=== PATIENT | female | born 1995 | race Caucasian/White ===

== ENCOUNTER 2019-03-14 16:18 | Emergency (ER) | payer OTHER ==
[2019-03-14 17:03] VITALS: BP 130/66; PULSE 88; RESP 20; TEMP 98
--- NOTE | 2019-03-14 17:29 | XR ---
PROCEDURE: XR wrist complete LT - 4V DATE AND TIME: 03/14/2019 5:11 PM CLINICAL INDICATION: PHH; previous fracture increasing pain TECHNIQUE: 4 views were obtained through casting material. COMPARISON: None FINDINGS: There is no fracture or malalignment. The soft tissues are unremarkable. IMPRESSION: NO ACUTE PROCESS.
--- NOTE | 2019-03-14 18:04 | ED ---
Recheck HPI - General Chief Complaint: Recheck/Abnormal Lab/Rx Stated Complaint: F/U on left arm Injury Time Seen by Provider: 03/14/19 16:44 Source: patient Mode of arrival: ambulatory Limitations: no limitations - History of Present Illness Initial Comments: 23-year-old female presenting for right wrist pain since fall and fracture on 03/10. Patient states she broke her wrist swelling Daisy. She states she recently moved to [place]. She attempted to get into aortic surgeon however did not take her insurance. Patient states she continues to have pain. Patient was told that she had a ulnar styloid fracture. Patient states she acquired the fracture by tripping over a curb. And extending her wrist. Patient states she had elbow imaging studies obtained as well as imaging studies of the wrist. Patient states that she continues to have pain in his been taking ibuprofen Tylenol. Remaining review of systems negative. Denies any other areas of injury or complaints denies numbness tingling loss sensation. Patient denies any decreased range motion of the digits. Patient has been removing and reapply the splint - Related Data Allergies Allergy/AdvReac Type Severity Reaction Status Date / Time clarithromycin [From Biaxin] Allergy Dyspnea Verified 03/14/19 16:48 Penicillins Allergy Dyspnea Verified 03/14/19 16:48 Sulfa (Sulfonamide Allergy Dyspnea Verified 03/14/19 16:48 Antibiotics) Review of Systems ROS Statement: Those systems with pertinent positive or pertinent negative responses have been documented in the HPI. ROS Other: All systems not noted in ROS Statement are negative. Past Medical History Past Medical History: Asthma, Diabetes Mellitus, Thyroid Disorder History of Any Multi-Drug Resistant Organisms: None Reported Past Surgical History: Adenoidectomy, Cholecystectomy, Tonsillectomy Past Psychological History: Anxiety, Depression Smoking Status: Never smoker Past Alcohol Use History: None Reported Past Drug Use History: None Reported General Exam - General Exam Comments Initial Comments: General: The patient is awake and alert, in no distress, and does not appear acutely ill. Eye: Pupils are equal, round and reactive to light, extra-ocular movements are intact. No nystagmus. There is normal conjunctiva bilaterally. No signs of icterus. Cardiovascular: There is a regular rate and rhythm. No murmur, rub or gallop is appreciated. Respiratory: Lungs are clear to auscultation, respirations are non-labored, breath sounds are equal. No wheezes, stridor, rales, or rhonchi. Musculoskeletal: Upon inspection of the wrist bilaterally there is no soft tissue swelling ecchymosis. No evidence of gross deformity. Patient is able to range the wrist bilaterally she complains of tenderness with range of motion at the right wrist. Patient is infiltrates the okay fingers crossed thumbs up and oppose the small digit and thumb. No evidence of brisk strep. Compartments are very soft and compressible. Strength intact sensation intact both proximal and distal to the area of complaint. +2 radial pulses are equal bilaterally. Neurological: A&O x 3. CN II-XII intact, There are no obvious motor or sensory deficits. Coordination appears grossly intact. Speech is normal. Skin: Skin is warm and dry and no rashes or lesions are noted. Psychiatric: Cooperative, appropriate mood & affect, normal judgment. Limitations: no limitations Course Vital Signs 03/14/19 16:30 Temperature 98.0 F Pulse Rate 88 Respiratory 20 Rate Blood Pressure 130/66 O2 Sat by Pulse 99 Oximetry Medical Decision Making - Medical Decision Making 23-year-old female presents emergency department for evaluation of wrist pain after injury on March 10. Patient had styloid fracture. Patient has no evidence of acute fracture on imaging studies I do not appreciate the styloid fracture. Patient has no scaphoid tenderness. No neurovascular deficits noted. Patient has strong radial pulses compartments are soft and compressible. Patient is placed in a splint. Orthopedic surgery follow-up. Return parameters were discussed patient is agreeable to this care plan discharge at this time. Disposition Clinical Impression: Left wrist pain, Fracture of ulnar styloid Disposition: HOME SELF-CARE Condition: Good Instructions (If sedation given, give patient instructions): Wrist Fracture in Adults (ED) Additional Instructions: Please use medication as discussed. Please follow-up with orthopedic surgery in the next week- bring paper work with diagnosis from Daisy visit. Please return to emergency room if the symptoms increase or worsen or for any other concerns. Is patient prescribed a controlled substance at d/c from ED?: No Referrals: None,Stated [Primary Care Provider] - 1-2 days Amanuel Feldman MD [STAFF PHYSICIAN] - 1-2 days Time of Disposition: 18:03
--- NOTE | 2019-03-21 02:32 | CDI ---
Dear Jerson May DO: Please do addendum type of the splint placed. Thank you, Nano Dye, Marketing And Communications Officer. If you have any questions, please contact [employer] at [phone]. mtdD
== END 2019-03-14 18:15 | disposition home or self-care (01) ==
LOC: EC 16:18
DX: S52.612A Displaced fracture of left ulna styloid process, initial encounter for closed fracture (principal); Z88.0 Allergy status to penicillin; Z88.1 Allergy status to other antibiotic agents; Z88.2 Allergy status to sulfonamides; W01.0XXA Fall on same level from slipping, tripping and stumbling without subsequent striking against object, initial encounter; Y92.009 Unspecified place in unspecified non-institutional (private) residence as the place of occurrence of the external cause
CPT/HCPCS: 29125; 99283

== ENCOUNTER 2019-04-01 11:32 | Emergency (ER) | payer OTHER ==
[2019-04-01] MEDS ORDERED: SODIUM CHLORIDE 0.9% 1,000 ML IV STA ×2 (12:10)
[2019-04-01] MEDS ORDERED: MORPHINE SULFATE 4 MG/ML SYRINGE IV STA (12:10)
[2019-04-01] MEDS ORDERED: ONDANSETRON 4 MG/2 ML VIAL IVP STA (12:10)
[2019-04-01] MEDS ORDERED: KETOROLAC 30 MG/ML 1 ML VIAL IVP STA (12:10)
[2019-04-01 12:19] VITALS: TEMP 99.7
--- NOTE | 2019-04-01 12:19 | ED ---
Abdominal Pain HPI - General Chief Complaint: Abdominal Pain Stated Complaint: R Abd Pain, Chest Pain Time Seen by Provider: 04/01/19 11:46 Source: patient, RN notes reviewed, old records reviewed Mode of arrival: ambulatory Limitations: no limitations - History of Present Illness Initial Comments: Patient is a 23-year-old female presents to emergency department today with 2 days of right-sided lower abdominal pain, chills, and diarrhea. Patient reports that she is nauseated as well. Patient states that she's had no abdominal surgeries. She does report some dysuria. She denies any back pain.Patient denies any recent fever, chills, shortness of breath, chest pain, back pain, abdominal pain, nausea vomiting, numbness or tingling, dysuria or hematuria, constipation or diarrhea, headaches or visual changes, or any other current symptoms - Related Data Previous Rx's Medication Instructions Recorded Levofloxacin [Levaquin] 750 mg PO DAILY #5 tab 04/01/19 Allergies Allergy/AdvReac Type Severity Reaction Status Date / Time clarithromycin [From Biaxin] Allergy Dyspnea Verified 03/14/19 16:48 Penicillins Allergy Dyspnea Verified 03/14/19 16:48 Sulfa (Sulfonamide Allergy Dyspnea Verified 03/14/19 16:48 Antibiotics) Review of Systems ROS Statement: Those systems with pertinent positive or pertinent negative responses have been documented in the HPI. ROS Other: All systems not noted in ROS Statement are negative. Past Medical History Past Medical History: Asthma, Diabetes Mellitus, Thyroid Disorder History of Any Multi-Drug Resistant Organisms: None Reported Past Surgical History: Adenoidectomy, Cholecystectomy, Tonsillectomy Past Psychological History: Anxiety, Depression Smoking Status: Never smoker Past Alcohol Use History: None Reported Past Drug Use History: None Reported General Exam - General Exam Comments Initial Comments: Pleasant 23-year-old female. She does appear in moderate discomfort. Limitations: no limitations General appearance: alert, in no apparent distress Head exam: Present: atraumatic, normocephalic, normal inspection Eye exam: Present: normal appearance, PERRL, EOMI. Absent: scleral icterus, conjunctival injection, periorbital swelling ENT exam: Present: normal exam, mucous membranes moist Neck exam: Present: normal inspection. Absent: tenderness, meningismus, lymphadenopathy Respiratory exam: Present: normal lung sounds bilaterally. Absent: respiratory distress, wheezes, rales, rhonchi, stridor Cardiovascular Exam: Present: regular rate, normal rhythm, normal heart sounds. Absent: systolic murmur, diastolic murmur, rubs, gallop, clicks GI/Abdominal exam: Present: soft, normal bowel sounds. Absent: distended, tenderness, guarding, rebound, rigid Extremities exam: Present: normal inspection, full ROM, normal capillary refill. Absent: tenderness, pedal edema, joint swelling, calf tenderness Back exam: Present: normal inspection Neurological exam: Present: alert, oriented X3, CN II-XII intact Psychiatric exam: Present: normal affect, normal mood Skin exam: Present: warm, dry, intact, normal color. Absent: rash Course Vital Signs 04/01/19 04/01/19 04/01/19 11:39 12:13 13:21 Temperature 98.5 F 99.7 F H Pulse Rate 104 H 93 82 Respiratory 18 16 18 Rate Blood Pressure 118/75 103/66 104/57 O2 Sat by Pulse 98 100 96 Oximetry Medical Decision Making - Medical Decision Making 23-year-old female presented today for chief complaint of right lower quadrant abdominal pain. Patient has had a low-grade fever, symptoms for the past 2 days. At this time patient's urinalysis is positive for infection. She has no significant right lower quadrant tenderness. Therefore computed tomography scan was ordered. His evidence of sigmoid colitis as well. Patient was given 1 g of Rocephin. I discussed the Patient can be placed on antibiotics to cover for UTI and colitis. Discussed following up with primary care doctor. All questions were answered. - Lab Data Result diagrams: 04/01/19 12:10 04/01/19 12:10 Lab Results 04/01/19 04/01/19 04/01/19 Range/Units 12:10 12:10 12:10 WBC 6.5 (3.8-10.6) k/uL RBC 4.16 (3.80-5.40) m/uL Hgb 12.4 (11.4-16.0) gm/dL Hct 38.6 (34.0-46.0) % MCV 92.8 (80.0-100.0) fL MCH 29.8 (25.0-35.0) pg MCHC 32.2 (31.0-37.0) g/dL RDW 13.1 (11.5-15.5) % Plt Count 220 (150-450) k/uL Neutrophils % 58 % Lymphocytes % 32 % Monocytes % 5 % Eosinophils % 3 % Basophils % 1 % Neutrophils # 3.8 (1.3-7.7) k/uL Lymphocytes # 2.1 (1.0-4.8) k/uL Monocytes # 0.3 (0-1.0) k/uL Eosinophils # 0.2 (0-0.7) k/uL Basophils # 0.0 (0-0.2) k/uL PT (9.0-12.0) sec INR (<1.2) APTT (22.0-30.0) sec Sodium 143 (137-145) mmol/L Potassium 4.1 (3.5-5.1) mmol/L Chloride 108 H (98-107) mmol/L Carbon Dioxide 24 (22-30) mmol/L Anion Gap 11 mmol/L BUN 10 (7-17) mg/dL Creatinine 0.73 (0.52-1.04) mg/dL Est GFR (CKD-EPI)AfAm >90 (>60 ml/min/1.73 sqM) Est GFR (CKD-EPI)NonAf >90 (>60 ml/min/1.73 sqM) Glucose 115 H (74-99) mg/dL Plasma Lactic Acid Kamaljit 1.3 (0.7-2.0) mmol/L Calcium 9.4 (8.4-10.2) mg/dL Total Bilirubin 0.3 (0.2-1.3) mg/dL AST 23 (14-36) U/L ALT 38 (9-52) U/L Alkaline Phosphatase 49 (38-126) U/L Total Protein 7.0 (6.3-8.2) g/dL Albumin 4.2 (3.5-5.0) g/dL Amylase 59 (30-110) U/L Lipase 361 H (23-300) U/L Urine Color Urine Appearance (Clear) Urine pH (5.0-8.0) Ur Specific [place] (1.001-1.035) Urine Protein (Negative) Urine Glucose (UA) (Negative) Urine Ketones (Negative) Urine Blood (Negative) Urine Nitrite (Negative) Urine Bilirubin (Negative) Urine Urobilinogen (<2.0) mg/dL Ur Leukocyte Esterase (Negative) Urine RBC (0-5) /hpf Urine WBC (0-5) /hpf Ur Squamous Epith Cells (0-4) /hpf Calcium Oxalate Crystal (None) /hpf Urine Mucus (None) /hpf Urine HCG, Qual (Not Detectd) 04/01/19 04/01/19 04/01/19 Range/Units 12:10 Unknown Unknown WBC (3.8-10.6) k/uL RBC (3.80-5.40) m/uL Hgb (11.4-16.0) gm/dL Hct (34.0-46.0) % MCV (80.0-100.0) fL MCH (25.0-35.0) pg MCHC (31.0-37.0) g/dL RDW (11.5-15.5) % Plt Count (150-450) k/uL Neutrophils % % Lymphocytes % % Monocytes % % Eosinophils % % Basophils % % Neutrophils # (1.3-7.7) k/uL Lymphocytes # (1.0-4.8) k/uL Monocytes # (0-1.0) k/uL Eosinophils # (0-0.7) k/uL Basophils # (0-0.2) k/uL PT 9.8 (9.0-12.0) sec INR 0.9 (<1.2) APTT 22.9 (22.0-30.0) sec Sodium (137-145) mmol/L Potassium (3.5-5.1) mmol/L Chloride (98-107) mmol/L Carbon Dioxide (22-30) mmol/L Anion Gap mmol/L BUN (7-17) mg/dL Creatinine (0.52-1.04) mg/dL Est GFR (CKD-EPI)AfAm (>60 ml/min/1.73 sqM) Est GFR (CKD-EPI)NonAf (>60 ml/min/1.73 sqM) Glucose (74-99) mg/dL Plasma Lactic Acid Kamaljit (0.7-2.0) mmol/L Calcium (8.4-10.2) mg/dL Total Bilirubin (0.2-1.3) mg/dL AST (14-36) U/L ALT (9-52) U/L Alkaline Phosphatase (38-126) U/L Total Protein (6.3-8.2) g/dL Albumin (3.5-5.0) g/dL Amylase (30-110) U/L Lipase (23-300) U/L Urine Color Yellow Urine Appearance Cloudy H (Clear) Urine pH 5.5 (5.0-8.0) Ur Specific [place] 1.030 (1.001-1.035) Urine Protein Trace H (Negative) Urine Glucose (UA) Negative (Negative) Urine Ketones Negative (Negative) Urine Blood Small H (Negative) Urine Nitrite Negative (Negative) Urine Bilirubin Negative (Negative) Urine Urobilinogen 2.0 (<2.0) mg/dL Ur Leukocyte Esterase Large H (Negative) Urine RBC 17 H (0-5) /hpf Urine WBC 92 H (0-5) /hpf Ur Squamous Epith Cells 1 (0-4) /hpf Calcium Oxalate Crystal Many H (None) /hpf Urine Mucus Few H (None) /hpf Urine HCG, Qual Not Detected (Not Detectd) - Radiology Data Radiology results: report reviewed Correlating for sigmoid colitis, normal appendix. Mild hepatomegaly is noted on CT. Disposition Clinical Impression: UTI (urinary tract infection), Colitis Disposition: HOME SELF-CARE Condition: Good Instructions (If sedation given, give patient instructions): Urinary Tract Infection in Women (ED) Additional Instructions: Please use medication as discussed. Please follow up with family doctor if symptoms have not improved over the next two days. Please return to the emergency room if your symptoms increase or worsen or for any other concerns. Prescriptions: Levofloxacin [Levaquin] 750 mg PO DAILY #5 tab Is patient prescribed a controlled substance at d/c from ED?: No Referrals: None,Stated [Primary Care Provider] - 1-2 days Blanca Lin MD [STAFF PHYSICIAN] - 1-2 days Melina Rocha MD [REFERRING] - 1-2 days Time of Disposition: 14:01
[2019-04-01 12:22] LABS: Basophils % (A) 1 %; Eosinophils # (A) 0.2 k/uL (0-0.7); Eosinophils % (A) 3 %; HCT 38.6 % (34.0-46.0); HGB 12.4 gm/dL (11.4-16.0); Lymphocytes # (A) 2.1 k/uL (1.0-4.8); Lymphocytes % (A) 32 %; MCH 29.8 pg (25.0-35.0); MCHC 32.2 g/dL (31.0-37.0); MCV 92.8 fL (80.0-100.0); Mean Platelet Volume 8.9; Monocytes # (A) 0.3 k/uL (0-1.0); Monocytes % (A) 5 %; Neutrophils # (A) 3.8 k/uL (1.3-7.7); Neutrophils % (A) 58 %; Platelet Count 220 k/uL (150-450); RBC 4.16 m/uL (3.80-5.40); RDW 13.1 % (11.5-15.5); WBC 6.5 k/uL (3.8-10.6)
[2019-04-01 12:33] LABS: ALT 38 U/L (9-52); AST 23 U/L (14-36); African American GFR (CKD) >90 (>60 ml/min/1.73 sqM); Albumin 4.2 g/dL (3.5-5.0); Alkaline Phosphatase 49 U/L (38-126); Amylase 59 U/L (30-110); Anion Gap 11 mmol/L; Blood Urea Nitrogen 10 mg/dL (7-17); Calcium 9.4 mg/dL (8.4-10.2); Carbon Dioxide 24 mmol/L (22-30); Chloride 108 mmol/L (98-107); Glucose 115 mg/dL (74-99); Potassium 4.1 mmol/L (3.5-5.1); Sodium 143 mmol/L (137-145); Total Bilirubin 0.3 mg/dL (0.2-1.3)
[2019-04-01 12:35] LABS: INR 0.9 (<1.2); Partial Thromboplastin Time 22.9 sec (22.0-30.0); Prothrombin Time 9.8 sec (9.0-12.0)
[2019-04-01 12:39] LABS: Appearance,Urine Cloudy (Clear); Bilirubin,Urine Negative (Negative); Blood,Urine Small (Negative); Calcium Oxalate Crystals,Urine Many /hpf; Color,Urine Yellow; Glucose,Urine (UA) Negative (Negative); Ketones,Urine Negative (Negative); Leukocyte Esterase,Urine Large (Negative); Mucus,Urine Few /hpf; Nitrite,Urine Negative (Negative); PH, Urine 5.5 (5.0-8.0); Protein,Urine Trace (Negative); RBC,Urine 17 /hpf (0-5); Squamous Epithelial Cell,Urine 1 /hpf (0-4); WBC,Urine 92 /hpf (0-5)
[2019-04-01 13:24] VITALS: PULSE 82; RESP 18
--- NOTE | 2019-04-01 13:39 | CT ---
EXAMINATION TYPE: CT abdomen pelvis w con DATE OF EXAM: 04/01/2019 REFERENCE: NONE HISTORY: abdominal pain, rlq concern appy HISTORY: RLQ pain with nausea CT DLP: 1729.8 mGy Automated exposure control for dose reduction was used. TECHNIQUE: Helical acquisition through the abdomen and pelvis was obtained following the oral ingesti on of without Oral Contrast and following intravenous administration of 100 mL of Isovue 300. The yanna a was reformatted in axial, coronal and sagittal projections. FINDINGS: Visualized portions of the lungs are clear. There is no pleural or pericardial fluid. The heart is not enlarged. Within the abdomen, the liver is prominent measuring 22 cm. The spleen and gallbladder are normal. Both adrenal glands are normal. Both kidneys demonstrate function and appear morphologically normal. The pancreas is unremarkable. There is no significant retroperitoneal, iliac or inguinal adenopathy. The uterus is unremarkable. There is follicular change present in both ovaries. The bladder is not distended. There is mucosal thickening involving the sigmoid colon the remainder the colon has normal wall thick ness. The appendix is unremarkable. Small bowel loops are normal caliber. There is no free fluid and no free air. There is degenerative change of the L1-2 vertebral level. IMPRESSION: 1. PLEASE CORRELATE CLINICALLY FOR SIGMOID COLITIS. 2. NORMAL APPENDIX. 3. MILD HEPATOMEGALY.
[2019-04-01] MEDS ORDERED: cefTRIAXone IN SWFI 1,000 MG/10 ML SYRINGE IVP STA (13:46)
[2019-04-01 14:10] VITALS: BP 96/68
== END 2019-04-01 14:10 | disposition home or self-care (01) ==
LOC: EC 11:32
DX: K52.9 Noninfective gastroenteritis and colitis, unspecified (principal); N39.0 Urinary tract infection, site not specified; Z88.0 Allergy status to penicillin; Z88.2 Allergy status to sulfonamides; Z88.1 Allergy status to other antibiotic agents
CPT/HCPCS: 36415; 80053; 82150; 83605; 83690; 85025; 85610; 85730; 81001; 81025; 74177; 99285; 96374; 96375 ×3; 96361 ×2; J2270; J2405; J0696; J1885; Q9967

== ENCOUNTER 2019-04-15 16:11 | Emergency (ER) | payer OTHER ==
[2019-04-15 16:18] VITALS: BP 122/79; PULSE 97; RESP 18; TEMP 98.4
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
--- NOTE | 2019-04-15 16:36 | XR ---
EXAMINATION TYPE: XR wrist complete LT DATE OF EXAM: 04/15/2019 COMPARISON: 03/14/2019 HISTORY: Pain and swelling after fall TECHNIQUE: 4 view left wrist FINDINGS: No displaced fractures are evident. Joint spaces are preserved. Soft tissues appear within normal limits. Alignment is normal. There is pain at the anatomic snuff box, nuclear medicine bone scan could be performed for additional evaluation. Follow-up exams 7-10 days from acute trauma for continued pain can be performed. IMPRESSION: 1. No acute osseous abnormality left wrist
== END 2019-04-15 17:29 | disposition home or self-care (01) ==
LOC: EC 16:11
DX: S60.212A Contusion of left wrist, initial encounter (principal); E11.9 Type 2 diabetes mellitus without complications; E07.9 Disorder of thyroid, unspecified; J45.909 Unspecified asthma, uncomplicated; Z88.0 Allergy status to penicillin; Z88.2 Allergy status to sulfonamides; Z88.1 Allergy status to other antibiotic agents; W18.39XA Other fall on same level, initial encounter
CPT/HCPCS: 99283

== ENCOUNTER 2019-05-18 16:52 | Emergency (ER) | payer OTHER ==
[2019-05-18 16:59] VITALS: BP 109/77; PULSE 97; RESP 18; TEMP 97.7
[2019-05-18] MEDS ORDERED: IBUPROFEN 800 MG TAB PO STA (17:19)
[2019-05-18] MEDS ORDERED: CYCLOBENZAPRINE 10 MG TAB PO STA (17:19)
[2019-05-18] MEDS ORDERED: LIDOCAINE 5% PATCH TOPICAL STA (17:20)
--- NOTE | 2019-05-18 17:43 | XR ---
EXAMINATION TYPE: XR lumbar spine 2 or 3V DATE OF EXAM: 05/18/2019 COMPARISON: NONE HISTORY: Back pain TECHNIQUE: 3 views FINDINGS: Lumbar vertebra have normal alignment. Posterior elements are intact. There is anterior spu rring of L1-2. There is no compression fracture. Sacroiliac joints are intact. IMPRESSION: Mild spurring at L1-2. No fracture seen.
[2019-05-18] MEDS ORDERED: CYCLOBENZAPRINE 10MG STARTER 3 TAB BTL PO STA (18:12)
--- NOTE | 2019-05-18 18:14 | ED ---
Back Pain HPI - General Chief Complaint: Back Pain/Injury Stated Complaint: BACK PAIN, DOWN LEGS, UP TO NECK Time Seen by Provider: 05/18/19 17:06 Source: patient Limitations: no limitations - History of Present Illness Initial Comments: Patient is 24-year-old female with history of BCLS is presenting to emergency Department with a chief complaint of back pain. Patient reports 6 days ago she bent over to brush her teeth and heard a pop in her lower back causing a sudden onset of pain that radiates along the posterior aspect of bilateral lower extremities. Patient reports the pain is sharp and shooting in nature. Patient denies any numbness or tingling in bilateral lower extremity is. Patient denies any numbness in the groin region, urinary or bowel incontinence. Patient reports the pain is exacerbated with forward flexion, extension left and right rotation. Patient reports the pain occasionally will travel superiorly to the lower back almost to the time the pain only radiates distally to the extremities. Patient denies taking medication to alleviate the symptoms. Patient denies previous trauma or surgery to the region. Patient denies abdominal pain, chest pain, shortness of breath nor vomiting. Patient states there is no chance of because she is not sexually active and is currently on control. - Related Data Previous Rx's Medication Instructions Recorded Levofloxacin [Levaquin] 750 mg PO DAILY #5 tab 04/01/19 Cyclobenzaprine [Flexeril] 5 mg PO TID PRN #15 tablet 05/18/19 Lidocaine 5% Patch [Lidoderm] 1 patch TOPICAL DAILY #6 patch 05/18/19 Allergies Allergy/AdvReac Type Severity Reaction Status Date / Time clarithromycin [From Biaxin] Allergy Dyspnea Verified 05/18/19 16:55 Penicillins Allergy Dyspnea Verified 05/18/19 16:55 Sulfa (Sulfonamide Allergy Dyspnea Verified 05/18/19 16:55 Antibiotics) Review of Systems ROS Statement: Those systems with pertinent positive or pertinent negative responses have been documented in the HPI. ROS Other: All systems not noted in ROS Statement are negative. Past Medical History Past Medical History: Asthma, Diabetes Mellitus, Thyroid Disorder History of Any Multi-Drug Resistant Organisms: None Reported Past Surgical History: Adenoidectomy, Tonsillectomy Past Psychological History: Anxiety, Depression Smoking Status: Current some day smoker Past Alcohol Use History: Rare Past Drug Use History: Marijuana General Exam Limitations: no limitations General appearance: alert, in no apparent distress, obese Head exam: Present: atraumatic, normocephalic, normal inspection Eye exam: Present: normal appearance Pupils: Present: normal accommodation ENT exam: Present: normal exam, mucous membranes moist Neck exam: Present: normal inspection, full ROM Respiratory exam: Present: normal lung sounds bilaterally Cardiovascular Exam: Present: regular rate, normal rhythm, normal heart sounds GI/Abdominal exam: Present: soft, normal bowel sounds Extremities exam: Present: normal inspection, full ROM Back exam: Present: normal inspection, full ROM, vertebral tenderness (Lumbar), other (Positive leg raise test bilaterally). Absent: CVA tenderness (R), CVA tenderness (L) Neurological exam: Present: alert, oriented X3 Psychiatric exam: Present: normal affect, normal mood Skin exam: Present: warm, dry, intact, normal color Course Vital Signs 05/18/19 16:56 Temperature 97.7 F Pulse Rate 97 Respiratory 18 Rate Blood Pressure 109/77 O2 Sat by Pulse 98 Oximetry Medical Decision Making - Medical Decision Making patient is a 24-year-old female presenting to the emergency department with chief complaint of back pain. Patient developed the pain about 6 days ago after she bent forward and heard a "pop rotation. Physical exam is indicative of lumbovertebral tenderness that appears to be exacerbated with left and right rotation, forward flexion and extension. Physical exam is otherwise unremarkable. X-ray showing spurring at L1 and L2. I suspect this finding has some involvement that is causing her symptoms. No cauda equina signs. Patient given ibuprofen, Flexeril and a Lidoderm patch. Reevaluation patient reports improvement in her symptoms. Patient will be discharged with Flexeril advised about the possible side effects of medication. Patient also given a Lidoderm patch. Patient advised to alternate between Tylenol and ibuprofen. Patient advised to follow-up with orthopedics. Strict return parameters were thoroughly discussed the patient was understanding and agreeable. Case discussed with physician.. Disposition Clinical Impression: Lumbar pain with radiation down both legs Disposition: HOME SELF-CARE Condition: Stable Instructions (If sedation given, give patient instructions): Acute Low Back Pain (ED) Additional Instructions: Please follow up with commercial credit specialist. Please see prescribe medication as directed. Please return to emergency department if symptoms worsen. Prescriptions: Cyclobenzaprine [Flexeril] 5 mg PO TID PRN #15 tablet PRN Reason: Muscle Spasm Lidocaine 5% Patch [Lidoderm] 1 patch TOPICAL DAILY #6 patch Is patient prescribed a controlled substance at d/c from ED?: No Referrals: None,Stated [Primary Care Provider] - 1-2 days Amanuel Feldman MD [STAFF PHYSICIAN] - 1-2 days Time of Disposition: 18:13
== END 2019-05-18 18:30 | disposition home or self-care (01) ==
LOC: EC 16:52
DX: M54.5 Low back pain (principal); M79.604 Pain in right leg; M79.605 Pain in left leg; F17.200 Nicotine dependence, unspecified, uncomplicated; Z88.1 Allergy status to other antibiotic agents; Z88.0 Allergy status to penicillin; Z88.2 Allergy status to sulfonamides
CPT/HCPCS: 72100; 99283

== ENCOUNTER 2019-10-21 02:54 | Emergency (ER) | payer OTHER ==
[2019-10-21 03:13] VITALS: RESP 18
--- NOTE | 2019-10-21 03:52 | XR ---
EXAMINATION TYPE: XR chest 1V portable DATE OF EXAM: 10/21/2019 COMPARISON: NONE HISTORY: Chest pain TECHNIQUE: FINDINGS: Heart and mediastinum are normal. Lungs are clear. Diaphragm is normal. Bony thorax is inta ct. IMPRESSION: No cardiopulmonary disease.
[2019-10-21 03:54] LABS: Basophils # (A) 0.1 k/uL (0-0.2); Basophils % (A) 1 %; Eosinophils # (A) 0.2 k/uL (0-0.7); Eosinophils % (A) 2 %; HCT 39.3 % (34.0-46.0); HGB 13.1 gm/dL (11.4-16.0); Lymphocytes # (A) 2.7 k/uL (1.0-4.8); Lymphocytes % (A) 36 %; MCH 31.5 pg (25.0-35.0); MCHC 33.3 g/dL (31.0-37.0); MCV 94.8 fL (80.0-100.0); Mean Platelet Volume 9.1; Monocytes # (A) 0.4 k/uL (0-1.0); Monocytes % (A) 5 %; Neutrophils # (A) 4.1 k/uL (1.3-7.7); Neutrophils % (A) 55 %; Platelet Count 204 k/uL (150-450); RBC 4.15 m/uL (3.80-5.40); RDW 13.5 % (11.5-15.5); WBC 7.4 k/uL (3.8-10.6)
[2019-10-21 03:55] LABS: Amorphous Sediment,Urine Rare /hpf; Appearance,Urine Cloudy (Clear); Bacteria,Urine Rare /hpf; Bilirubin,Urine Negative (Negative); Blood,Urine Small (Negative); Color,Urine Yellow; Glucose,Urine (UA) Negative (Negative); Ketones,Urine Negative (Negative); Leukocyte Esterase,Urine Negative (Negative); Mucus,Urine Rare /hpf; Nitrite,Urine Negative (Negative); Protein,Urine Negative (Negative); RBC,Urine <1 /hpf (0-5); Specific Gravity,Urine 1.027 (1.001-1.035); Squamous Epithelial Cell,Urine 1 /hpf (0-4); Urobilinogen,Urine <2.0 mg/dL (<2.0); WBC,Urine 2 /hpf (0-5)
[2019-10-21 04:00] LABS: ALT 29 U/L (4-34); AST 33 U/L (14-36); African American GFR (CKD) >90 (>60 ml/min/1.73 sqM); Albumin 4.9 g/dL (3.5-5.0); Alkaline Phosphatase 70 U/L (38-126); Anion Gap 15 mmol/L; Blood Urea Nitrogen 13 mg/dL (7-17); Calcium 9.9 mg/dL (8.4-10.2); Carbon Dioxide 18 mmol/L (22-30); Chloride 107 mmol/L (98-107); Glucose 123 mg/dL (74-99); Non-African American GFR(CKD) 85 (>60 ml/min/1.73 sqM); Potassium 3.5 mmol/L (3.5-5.1); Sodium 140 mmol/L (137-145); Total Bilirubin 0.7 mg/dL (0.2-1.3); Total Protein 7.7 g/dL (6.3-8.2)
--- NOTE | 2019-10-21 04:19 | ED ---
General Adult HPI - General Chief complaint: Shortness of Breath Stated complaint: Shortness of Breath Time Seen by Provider: 10/21/19 02:55 Source: patient Mode of arrival: ambulatory Limitations: no limitations - History of Present Illness Initial comments: This patient is 24-year-old woman brought for evaluation of a constellation of symptoms. The patient states that she was in her usual state of health until approximately 2 days ago when she began having which is describing as diarrhea. She had a number of watery stools over the past 2 days. She did not see any blood or tarry material. Patient was having some nausea as well. She states th at tonight she began having a little bit of cough and was feeling a little short of breath and thought she may have a fever. Patient was concerned because she has a girlfriend who works in a pharmacy and was having similar symptoms and possible exposure for coronavirus. Onset/Timin -: days(s) Consistency: constant Improves with: none Worsens with: none Associated Symptoms: cough, nausea/vomiting, shortness of breath Treatments Prior to Arrival: none - Related Data Previous Rx's Medication Instructions Recorded Levofloxacin [Levaquin] 750 mg PO DAILY #5 tab 04/01/19 Cyclobenzaprine [Flexeril] 5 mg PO TID PRN #15 tablet 05/18/19 Lidocaine 5% Patch [Lidoderm] 1 patch TOPICAL DAILY #6 patch 05/18/19 Ondansetron Odt [Zofran ODT] 4 mg PO Q8HR PRN #10 tab 10/21/19 Allergies Allergy/AdvReac Type Severity Reaction Status Date / Time clarithromycin [From Biaxin] Allergy Dyspnea Verified 05/18/19 16:55 Penicillins Allergy Dyspnea Verified 05/18/19 16:55 Sulfa (Sulfonamide Allergy Dyspnea Verified 05/18/19 16:55 Antibiotics) Review of Systems ROS Statement: Those systems with pertinent positive or pertinent negative responses have been documented in the HPI. ROS Other: All systems not noted in ROS Statement are negative. Constitutional: Reports: fever, weakness Respiratory: Reports: cough, dyspnea. Denies: wheezes, hemoptysis Cardiovascular: Denies: chest pain, edema, syncope Gastrointestinal: Reports: nausea, diarrhea. Denies: abdominal pain, vomiting, constipation, melena, hematochezia Genitourinary: Denies: dysuria, hematuria Musculoskeletal: Denies: back pain Skin: Denies: rash Neurological: Denies: headache, weakness, numbness Past Medical History Past Medical History: Asthma, Diabetes Mellitus, Thyroid Disorder History of Any Multi-Drug Resistant Organisms: None Reported Past Surgical History: Adenoidectomy, Tonsillectomy Past Psychological History: Anxiety, Depression Smoking Status: Current some day smoker Past Alcohol Use History: Rare Past Drug Use History: Marijuana General Exam Limitations: no limitations General appearance: alert, in no apparent distress Head exam: Present: atraumatic, normocephalic Eye exam: Present: normal appearance. Absent: scleral icterus, conjunctival injection Neck exam: Present: normal inspection, full ROM. Absent: meningismus Respiratory exam: Present: normal lung sounds bilaterally. Absent: respiratory distress, wheezes, rales, rhonchi, stridor Cardiovascular Exam: Present: regular rate, normal rhythm, normal heart sounds. Absent: systolic murmur, diastolic murmur, rubs, gallop GI/Abdominal exam: Present: soft. Absent: distended, tenderness, guarding, rebound, rigid, mass Extremities exam: Present: normal inspection, normal capillary refill. Absent: pedal edema, calf tenderness Back exam: Present: normal inspection. Absent: CVA tenderness (R), CVA tenderness (L) Neurological exam: Present: alert Skin exam: Present: warm, dry, intact, normal color. Absent: rash Course Vital Signs 10/21/19 10/21/19 03:09 03:27 Temperature 99.3 F Pulse Rate 80 Respiratory 18 18 Rate Blood Pressure 124/78 O2 Sat by Pulse 98 Oximetry Medical Decision Making - Lab Data Result diagrams: 10/21/19 03:10 10/21/19 03:10 Lab Results 10/21/19 10/21/19 10/21/19 Range/Units 03:10 03:10 03:10 WBC 7.4 (3.8-10.6) k/uL RBC 4.15 (3.80-5.40) m/uL Hgb 13.1 (11.4-16.0) gm/dL Hct 39.3 (34.0-46.0) % MCV 94.8 (80.0-100.0) fL MCH 31.5 (25.0-35.0) pg MCHC 33.3 (31.0-37.0) g/dL RDW 13.5 (11.5-15.5) % Plt Count 204 (150-450) k/uL Neutrophils % 55 % Lymphocytes % 36 % Monocytes % 5 % Eosinophils % 2 % Basophils % 1 % Neutrophils # 4.1 (1.3-7.7) k/uL Lymphocytes # 2.7 (1.0-4.8) k/uL Monocytes # 0.4 (0-1.0) k/uL Eosinophils # 0.2 (0-0.7) k/uL Basophils # 0.1 (0-0.2) k/uL Sodium 140 (137-145) mmol/L Potassium 3.5 (3.5-5.1) mmol/L Chloride 107 (98-107) mmol/L Carbon Dioxide 18 L (22-30) mmol/L Anion Gap 15 mmol/L BUN 13 (7-17) mg/dL Creatinine 0.95 (0.52-1.04) mg/dL Est GFR (CKD-EPI)AfAm >90 (>60 ml/min/1.73 sqM) Est GFR (CKD-EPI)NonAf 85 (>60 ml/min/1.73 sqM) Glucose 123 H (74-99) mg/dL Calcium 9.9 (8.4-10.2) mg/dL Total Bilirubin 0.7 (0.2-1.3) mg/dL AST 33 (14-36) U/L ALT 29 (4-34) U/L Alkaline Phosphatase 70 (38-126) U/L Total Protein 7.7 (6.3-8.2) g/dL Albumin 4.9 (3.5-5.0) g/dL Urine Color Yellow Urine Appearance Cloudy H (Clear) Urine pH 7.0 (5.0-8.0) Ur Specific Al[place] 1.027 (1.001-1.035) Urine Protein Negative (Negative) Urine Glucose (UA) Negative (Negative) Urine Ketones Negative (Negative) Urine Blood Small H (Negative) Urine Nitrite Negative (Negative) Urine Bilirubin Negative (Negative) Urine Urobilinogen <2.0 (<2.0) mg/dL Ur Leukocyte Esterase Negative (Negative) Urine RBC <1 (0-5) /hpf Urine WBC 2 (0-5) /hpf Ur Squamous Epith Cells 1 (0-4) /hpf Amorphous Sediment Rare H (None) /hpf Urine Bacteria Rare H (None) /hpf Urine Mucus Rare H (None) /hpf Urine HCG, Qual (Not Detectd) Coronavirus (PCR) (Not Detectd) 10/21/19 10/21/19 Range/Units 03:10 03:10 WBC (3.8-10.6) k/uL RBC (3.80-5.40) m/uL Hgb (11.4-16.0) gm/dL Hct (34.0-46.0) % MCV (80.0-100.0) fL MCH (25.0-35.0) pg MCHC (31.0-37.0) g/dL RDW (11.5-15.5) % Plt Count (150-450) k/uL Neutrophils % % Lymphocytes % % Monocytes % % Eosinophils % % Basophils % % Neutrophils # (1.3-7.7) k/uL Lymphocytes # (1.0-4.8) k/uL Monocytes # (0-1.0) k/uL Eosinophils # (0-0.7) k/uL Basophils # (0-0.2) k/uL Sodium (137-145) mmol/L Potassium (3.5-5.1) mmol/L Chloride (98-107) mmol/L Carbon Dioxide (22-30) mmol/L Anion Gap mmol/L BUN (7-17) mg/dL Creatinine (0.52-1.04) mg/dL Est GFR (CKD-EPI)AfAm (>60 ml/min/1.73 sqM) Est GFR (CKD-EPI)NonAf (>60 ml/min/1.73 sqM) Glucose (74-99) mg/dL Calcium (8.4-10.2) mg/dL Total Bilirubin (0.2-1.3) mg/dL AST (14-36) U/L ALT (4-34) U/L Alkaline Phosphatase (38-126) U/L Total Protein (6.3-8.2) g/dL Albumin (3.5-5.0) g/dL Urine Color Urine Appearance (Clear) Urine pH (5.0-8.0) Ur Specific Alpine (1.001-1.035) Urine Protein (Negative) Urine Glucose (UA) (Negative) Urine Ketones (Negative) Urine Blood (Negative) Urine Nitrite (Negative) Urine Bilirubin (Negative) Urine Urobilinogen (<2.0) mg/dL Ur Leukocyte Esterase (Negative) Urine RBC (0-5) /hpf Urine WBC (0-5) /hpf Ur Squamous Epith Cells (0-4) /hpf Amorphous Sediment (None) /hpf Urine Bacteria (None) /hpf Urine Mucus (None) /hpf Urine HCG, Qual Not Detected (Not Detectd) Coronavirus (PCR) Not Detected (Not Detectd) Disposition Clinical Impression: Viral syndrome Disposition: HOME SELF-CARE Condition: Good Instructions (If sedation given, give patient instructions): Viral Syndrome (ED) Prescriptions: Ondansetron Odt [Zofran ODT] 4 mg PO Q8HR PRN #10 tab PRN Reason: Nausea Is patient prescribed a controlled substance at d/c from ED?: No Referrals: None,Stated [Primary Care Provider] - 1-2 days
[2019-10-21 04:24] VITALS: BP 132/73; PULSE 90; TEMP 98.3
== END 2019-10-21 04:59 | disposition home or self-care (01) ==
LOC: EC 02:54
DX: B34.9 Viral infection, unspecified (principal); Z20.828 Contact with and (suspected) exposure to other viral communicable diseases; F17.200 Nicotine dependence, unspecified, uncomplicated; Z88.0 Allergy status to penicillin; Z88.1 Allergy status to other antibiotic agents; Z88.2 Allergy status to sulfonamides
CPT/HCPCS: 36415; 71045; 80053; 81001; 81025; 85025; 87635; 99285

== ENCOUNTER → 2019-12-21 | Outpatient (CLI) | payer OTHER ==
--- NOTE | 2019-12-21 12:01 | USB ---
Reason for exam: clinical finding. History: Family history of breast cancer in paternal aunt at age 40. Indicated problem(s): pain in the right breast. Physical Findings: Nurse did not find any significant physical abnormalities on exam. US Breast RT Right complete breast ultrasound includes all four quadrants, the retroareolar region and axilla. Finding demonstrates no cystic or solid lesion seen. These results were verbally communicated with the patient and result sheet given to the patient on 12/21/19. ASSESSMENT: Negative, BI-RAD 1 RECOMMENDATION: Routine screening mammogram of both breasts at age 40. (or sooner if clinically indicated) Manage on a clinical basis with regard to right breast pain. If a new lump develops, the area can be re-scanned.
== END | disposition home or self-care (01) ==
LOC: RADUSWWP 10:10
PROVIDERS: ATTEND Internal Medicine
DX: N63.0 Unspecified lump in unspecified breast (principal)

== ENCOUNTER 2020-02-29 13:01 | Emergency (ER) | payer OTHER ==
[2020-02-29 13:07] VITALS: BP 134/89; PULSE 101; TEMP 98.1
[2020-02-29] MEDS ORDERED: ACETAMINOPHEN TAB 325 MG TAB PO STA (13:50)
[2020-02-29 14:00] LABS: Appearance,Urine Cloudy (Clear); Bacteria,Urine Rare /hpf; Bilirubin,Urine Negative (Negative); Blood,Urine Trace (Negative); Calcium Oxalate Crystals,Urine Moderate /hpf; Color,Urine Yellow; Glucose,Urine (UA) Negative (Negative); Ketones,Urine Negative (Negative); Leukocyte Esterase,Urine Large (Negative); Mucus,Urine Occasional /hpf; Nitrite,Urine Negative (Negative); PH, Urine 5.5 (5.0-8.0); Protein,Urine Trace (Negative); RBC,Urine 14 /hpf (0-5); Specific Gravity,Urine 1.023 (1.001-1.035); Squamous Epithelial Cell,Urine <1 /hpf (0-4); Urobilinogen,Urine <2.0 mg/dL (<2.0); WBC,Urine >182 /hpf (0-5)
[2020-02-29] MEDS ORDERED: cefTRIAXone 1,000 MG VIAL (IM USE) IM STA (14:28)
--- NOTE | 2020-02-29 14:40 | CT ---
EXAMINATION TYPE: CT abdomen pelvis wo con DATE OF EXAM: 02/29/2020 HISTORY: UTI, flank pain, rule out stone CT DLP: 1239.4 mGycm. Automated Exposure Control for Dose Reduction was Utilized. TECHNIQUE: CT scan of the abdomen and pelvis is performed without oral or IV contrast. COMPARISON: CT abdomen and pelvis April 01, 2019 FINDINGS: Within the limitations of a non-contrast study, the following observations are made. LUNG BASES: No significant abnormality is appreciated. LIVER/GB: Stable mild splenomegaly. PANCREAS: No significant abnormality is seen. SPLEEN: No significant abnormality is seen. ADRENALS: No significant abnormality is seen. KIDNEYS: No renal stones or hydronephrosis is present bilaterally. No intraluminal calculus in the po jason distended bladder. BOWEL: Moderate prominence of fecal material in the distal sigmoid colon and rectum. Overall no suspi cious small or large bowel dilatation. Debris-filled stomach suggests product of recent meal ingestio n. GENITAL ORGANS: Anteverted uterus projects to left of midline. Both ovaries seen and there are axial image 116 are symmetric in size. LYMPH NODES: No greater than 1cm abdominal or pelvic lymph nodes are appreciated. OSSEOUS STRUCTURES: Old displaced fracture involving the anterior superior L2 vertebra is redemonstra mike. OTHER: No significant additional abnormality is seen. IMPRESSION: No renal stones or hydronephrosis is seen bilaterally. Moderate rectal fecal stasis other malone unremarkable study.
--- NOTE | 2020-02-29 14:42 | ED ---
Female Urogenital HPI - General Chief complaint: Urogenital Stated complaint: UTI Time Seen by Provider: 02/29/20 13:13 Source: patient Mode of arrival: ambulatory Limitations: no limitations - History of Present Illness Initial comments: 24-year-old male presenting for dysuria low back pain. Patient states she has some mild low back pain with dysuria. She denies vaginal discharge or concern for sexual transmitted diseases denies fevers. Patient denies any nausea vomiting or history of kidney stones patient denies any history concerning for immune compromise. Patient is in no additional complaints upon arrival she appears well nontoxic in no acute distress. She states it is a bit ongoing for the past 2-3 days. - Related Data Home Medications Medication Instructions Recorded Confirmed Albuterol Sulfate [Albuterol 1 - 2 puff PO RT-Q6H PRN 02/29/20 02/29/20 Sulfate Hfa] Levothyroxine Sodium [Synthroid] 300 mcg PO DAILY 02/29/20 02/29/20 Mirtazapine [Remeron] 15 mg PO HS 02/29/20 02/29/20 Prazosin [Minipress] 1 mg PO HS 02/29/20 02/29/20 Venlafaxine HCl [Effexor XR] 75 mg PO HS 02/29/20 02/29/20 metFORMIN HCL 1,000 mg PO BID 02/29/20 02/29/20 Previous Rx's Medication Instructions Recorded Cephalexin [Keflex] 500 mg PO Q6HR 7 Days #28 cap 02/29/20 Allergies Allergy/AdvReac Type Severity Reaction Status Date / Time clarithromycin [From Biaxin] Allergy Dyspnea Verified 02/29/20 14:12 Penicillins Allergy Dyspnea Verified 02/29/20 14:12 Sulfa (Sulfonamide Allergy Dyspnea Verified 02/29/20 14:12 Antibiotics) Review of Systems ROS Statement: Those systems with pertinent positive or pertinent negative responses have been documented in the HPI. ROS Other: All systems not noted in ROS Statement are negative. Past Medical History Past Medical History: Asthma, Diabetes Mellitus, Thyroid Disorder History of Any Multi-Drug Resistant Organisms: None Reported Past Surgical History: Adenoidectomy, Tonsillectomy Past Psychological History: Anxiety, Depression Smoking Status: Never smoker Past Alcohol Use History: Rare Past Drug Use History: Marijuana General Exam - General Exam Comments Initial Comments: General: The patient is awake and alert, in no distress Eye: +3 mm pupils are equal, round and reactive to light, extra-ocular movements are intact. No nystagmus. There is normal conjunctiva bilaterally. No signs of icterus. Ears, nose, mouth and throat: There are moist mucous membranes and no oral lesions. Gastrointestinal: Soft, non-distended, non-tender abdomen without masses or organomegaly noted. There is no rebound or guarding present. Musculoskeletal: Normal ROM, no tenderness. Strength 5/5. Sensation intact. Pulses equal bilaterally 2+. Neurological: A&O x 3. CN II-XII intact grossly, There are no obvious motor or sensory deficits. Coordination appears grossly intact. Speech is normal. Skin: Skin is warm and dry and no rashes or lesions are noted. Psychiatric: Cooperative, appropriate mood & affect, normal judgment. Limitations: no limitations Course Vital Signs 02/29/20 02/29/20 13:04 14:55 Temperature 98.1 F Pulse Rate 101 H Respiratory 18 16 Rate Blood Pressure 134/89 O2 Sat by Pulse 99 Oximetry Medical Decision Making - Medical Decision Making UA concerning for infection. CT no stone or inflammatory process identified. Patient Will be treated with IM rocephin and discharged on longer course of keflex given low bck pain. Return parameters and signs of pyelonephritis. Patietn case discussed with Dr. Miller who is agreeable to care plan and discharge. - Lab Data Lab Results 02/29/20 02/29/20 Range/Units 13:18 13:18 Urine Color Yellow Urine Appearance Cloudy H (Clear) Urine pH 5.5 (5.0-8.0) Ur Specific Daisy 1.023 (1.001-1.035) Urine Protein Trace H (Negative) Urine Glucose (UA) Negative (Negative) Urine Ketones Negative (Negative) Urine Blood Trace H (Negative) Urine Nitrite Negative (Negative) Urine Bilirubin Negative (Negative) Urine Urobilinogen <2.0 (<2.0) mg/dL Ur Leukocyte Esterase Large H (Negative) Urine RBC 14 H (0-5) /hpf Urine WBC >182 H (0-5) /hpf Ur Squamous Epith Cells <1 (0-4) /hpf Calcium Oxalate Crystal Moderate H (None) /hpf Urine Bacteria Rare H (None) /hpf Urine Mucus Occasional H (None) /hpf Urine HCG, Qual Not Detected (Not Detectd) Disposition Clinical Impression: UTI (urinary tract infection) Disposition: HOME SELF-CARE Condition: Good Instructions (If sedation given, give patient instructions): Urinary Tract Infection in Women (ED) Additional Instructions: Please use medication as discussed. Please follow-up with family doctor in the next 2 days.. Please return to emergency room if the symptoms increase or worsen or for any other concerns. Prescriptions: Cephalexin [Keflex] 500 mg PO Q6HR 7 Days #28 cap Is patient prescribed a controlled substance at d/c from ED?: No Referrals: Mary Restrepo MD [Primary Care Provider] - 1-2 days Time of Disposition: 14:42
[2020-02-29 14:57] VITALS: RESP 16
== END 2020-02-29 14:55 | disposition home or self-care (01) ==
LOC: EC 13:01
DX: N39.0 Urinary tract infection, site not specified (principal); F32.9 Major depressive disorder, single episode, unspecified; F41.9 Anxiety disorder, unspecified; J45.909 Unspecified asthma, uncomplicated; E11.9 Type 2 diabetes mellitus without complications; E07.9 Disorder of thyroid, unspecified; Z79.84 Long term (current) use of oral hypoglycemic drugs; Z79.890 Hormone replacement therapy; Z79.899 Other long term (current) drug therapy; Z88.0 Allergy status to penicillin; Z88.1 Allergy status to other antibiotic agents; Z88.2 Allergy status to sulfonamides
CPT/HCPCS: 81001; 81025; 87086; 74176; 99284; 96372; J0696

== ENCOUNTER 2020-03-04 12:01 | Observation (INO) | payer OTHER ==
[2020-03-04] MEDS: SODIUM CHLORIDE 0.9% 500 ML 500 ML IV SCH ×4 (13:13→17:02)
[2020-03-04] MEDS ORDERED: MORPHINE SULFATE 4 MG/ML SYRINGE IVP STA (13:26)
[2020-03-04] MEDS ORDERED: KETOROLAC 15 MG/ML 1 ML VIAL IVP STA (13:26)
[2020-03-04] MEDS ORDERED: ONDANSETRON 4 MG/2 ML VIAL IVP STA (13:26)
[2020-03-04 13:35] LABS: Basophils % (A) 1 %; Eosinophils # (A) 0.1 k/uL (0-0.7); Eosinophils % (A) 2 %; HGB 12.7 gm/dL (11.4-16.0); Lymphocytes # (A) 2.1 k/uL (1.0-4.8); Lymphocytes % (A) 37 %; MCH 31.2 pg (25.0-35.0); MCHC 33.3 g/dL (31.0-37.0); MCV 93.6 fL (80.0-100.0); Monocytes # (A) 0.2 k/uL (0-1.0); Monocytes % (A) 4 %; Neutrophils # (A) 3.1 k/uL (1.3-7.7); Neutrophils % (A) 54 %; Platelet Count 182 k/uL (150-450); RBC 4.06 m/uL (3.80-5.40); RDW 13.6 % (11.5-15.5); WBC 5.8 k/uL (3.8-10.6)
[2020-03-04] MEDS ORDERED: MORPHINE SULFATE 4 MG/ML SYRINGE IV PRN (13:36)
[2020-03-04] MEDS ORDERED: IBUPROFEN 400 MG TAB PO PRN (13:36)
[2020-03-04] MEDS ORDERED: ONDANSETRON 4 MG/2 ML VIAL IVP PRN (13:36)
[2020-03-04] MEDS ORDERED: ACETAMINOPHEN TAB 325 MG TAB PO PRN (13:36)
[2020-03-04] MEDS ORDERED: NALOXONE 0.4 MG/ML 1 ML VIAL IV PRN (13:36)
--- NOTE | 2020-03-04 13:36 | ED ---
Abdominal Pain HPI - General Chief Complaint: Abdominal Pain Stated Complaint: UTI-revisit Time Seen by Provider: 03/04/20 12:35 Source: patient, RN notes reviewed, old records reviewed Mode of arrival: ambulatory Limitations: no limitations - History of Present Illness Initial Comments: Patient is a 24-year-old female presents today with left-sided and right-sided flank pain. Patient reports that she was seen in her discharge 4 days ago and diagnosed with pyelonephritis. Patient states she's been taking oral antibiotic and I think any better. Doesn't complain of nausea and vomiting. She put she's had a fever 101 at home. Patient had a urine culture completed which shows evidence of ESBL. Patient reports that she's had a history of a large kidney when she was born but does not know if she has this at this time. - Related Data Home Medications Medication Instructions Recorded Confirmed Albuterol Sulfate [Albuterol 1 - 2 puff INHALATION RT-Q6H PRN 02/29/20 03/04/20 Sulfate Hfa] Levothyroxine Sodium [Synthroid] 300 mcg PO HS 02/29/20 03/04/20 Prazosin [Minipress] 1 mg PO HS 02/29/20 03/04/20 Mirtazapine Rapid 15mg 15 mg MUCOUS MEM HS 03/04/20 03/04/20 Omeprazole 20 mg PO DAILY PRN 03/04/20 03/04/20 Previous Rx's Medication Instructions Recorded Cephalexin [Keflex] 500 mg PO Q6HR 7 Days #28 cap 02/29/20 Allergies Allergy/AdvReac Type Severity Reaction Status Date / Time clarithromycin [From Biaxin] Allergy Dyspnea Verified 03/04/20 13:15 Penicillins Allergy Dyspnea Verified 03/04/20 13:15 Sulfa (Sulfonamide Allergy Dyspnea Verified 03/04/20 13:15 Antibiotics) tizanidine Allergy Anaphylaxis Verified 03/04/20 13:21 Review of Systems ROS Statement: Those systems with pertinent positive or pertinent negative responses have been documented in the HPI. ROS Other: All systems not noted in ROS Statement are negative. Past Medical History Past Medical History: Asthma, Diabetes Mellitus, Thyroid Disorder History of Any Multi-Drug Resistant Organisms: None Reported Past Surgical History: Adenoidectomy, Tonsillectomy Past Psychological History: Anxiety, Depression Smoking Status: Never smoker Past Alcohol Use History: Rare Past Drug Use History: Marijuana General Exam - General Exam Comments Initial Comments: 24-year-old [employer]. Alert and oriented 3. Moderate discomfort. Limitations: no limitations General appearance: alert, in no apparent distress Head exam: Present: atraumatic, normocephalic, normal inspection Eye exam: Present: normal appearance, PERRL, EOMI. Absent: scleral icterus, conjunctival injection, periorbital swelling ENT exam: Present: normal exam, mucous membranes moist Neck exam: Present: normal inspection. Absent: tenderness, meningismus, lymphadenopathy Respiratory exam: Present: normal lung sounds bilaterally. Absent: respiratory distress, wheezes, rales, rhonchi, stridor Cardiovascular Exam: Present: regular rate, normal rhythm, normal heart sounds. Absent: systolic murmur, diastolic murmur, rubs, gallop, clicks GI/Abdominal exam: Present: soft, normal bowel sounds, other (Right CVA tenderness). Absent: distended, tenderness, guarding, rebound, rigid Extremities exam: Present: normal inspection, full ROM, normal capillary refill. Absent: tenderness, pedal edema, joint swelling, calf tenderness Back exam: Present: normal inspection Neurological exam: Present: alert, oriented X3, CN II-XII intact Psychiatric exam: Present: normal affect, normal mood Skin exam: Present: warm, dry, intact, normal color. Absent: rash Course Vital Signs 03/04/20 12:22 Temperature 98.2 F Pulse Rate 102 H Respiratory 20 Rate Blood Pressure 139/91 O2 Sat by Pulse 99 Oximetry Medical Decision Making - Medical Decision Making Patient is a 24-year-old female presents to the ER today for evaluation for flank pain. Patient had ER visit on 02/28. Should urine culture at that time which shows evidence of ESBL. Resistant to multiple antibiotics. Patient was started on cefotaxime 10 as a susceptible. She also has ALLERGIES to penicillins and azithromycin and sulfa. Patient's labwork is pending. I discussed the case with who discussed the case with Dr. Thornton. Patient was admitted with infectious disease consult. 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
[2020-03-04 13:43] LABS: ALT 65 U/L (4-34); AST 59 U/L (14-36); African American GFR (CKD) >90 (>60 ml/min/1.73 sqM); Albumin 4.7 g/dL (3.5-5.0); Alkaline Phosphatase 49 U/L (38-126); Anion Gap 8 mmol/L; Blood Urea Nitrogen 13 mg/dL (7-17); Calcium 9.6 mg/dL (8.4-10.2); Carbon Dioxide 25 mmol/L (22-30); Chloride 106 mmol/L (98-107); Glucose 107 mg/dL (74-99); Non-African American GFR(CKD) >90 (>60 ml/min/1.73 sqM); Potassium 4.7 mmol/L (3.5-5.1); Sodium 139 mmol/L (137-145); Total Bilirubin 0.8 mg/dL (0.2-1.3); Total Protein 7.6 g/dL (6.3-8.2)
[2020-03-04 13:50] LABS: Appearance,Urine Cloudy (Clear); Bilirubin,Urine Negative (Negative); Blood,Urine Negative (Negative); Calcium Oxalate Crystals,Urine Many /hpf; Color,Urine Yellow; Glucose,Urine (UA) Negative (Negative); Ketones,Urine Negative (Negative); Leukocyte Esterase,Urine Negative (Negative); Mucus,Urine Occasional /hpf; Nitrite,Urine Negative (Negative); PH, Urine 5.5 (5.0-8.0); Protein,Urine Negative (Negative); RBC,Urine 2 /hpf (0-5); Specific Gravity,Urine 1.028 (1.001-1.035); Squamous Epithelial Cell,Urine 1 /hpf (0-4); Urobilinogen,Urine <2.0 mg/dL (<2.0); WBC,Urine 3 /hpf (0-5)
[2020-03-04 13:56] LABS: INR 0.9 (<1.2); Partial Thromboplastin Time 24.6 sec (22.0-30.0); Prothrombin Time 9.6 sec (9.0-12.0)
[2020-03-04] MEDS: SODIUM CHLORIDE 0.9% 1,000 ML IV SCH ×2 (14:07→23:05)
--- NOTE | 2020-03-04 15:54 | US ---
EXAMINATION TYPE: US renals and bladder DATE OF EXAM: 03/04/2020 COMPARISON: CT 4 days ago. CLINICAL HISTORY: pyelonephritis. Right flank pain, fever, prior right renal stones per patient; rece nt UTI EXAM MEASUREMENTS: Right Kidney: 11.0 x 5.9 x 4.3 cm Left Kidney: 11.8 x 6.4 x 4.9 cm Post Void Residual Volume: not assessed on EC patient being admitted Right Kidney: No hydronephrosis or masses seen Left Kidney: No hydronephrosis or masses seen Bladder: wnl Bilateral Jets seen: yes When scanning the right kidney adjacent liver is heterogeneously hyperechoic. No concerning right eugenio al mass or hydronephrosis. Bladder shows satisfactory distention. Bilateral distal ureter jets are se en. Left kidney shows no concerning mass or hydronephrosis. Cortical medullary differentiation mainta ined bilaterally. IMPRESSION: No hydronephrosis noted currently.
[2020-03-04] MEDS: ERTAPENEM 1 GM in SODIUM CHLORIDE 0.9% 50 ML IVPB SCH (17:33)
[2020-03-04] MEDS ORDERED: ALBUTEROL NEBULIZED 2.5 MG/3 ML INHALATION PRN (18:43)
[2020-03-04] MEDS ORDERED: PANTOPRAZOLE 40 MG TABLET PO PRN (18:43)
[2020-03-04] MEDS: LEVOTHYROXINE 100 MCG TAB PO SCH (20:48)
[2020-03-04] MEDS: MIRTAZAPINE 15 MG TAB PO SCH (20:48)
[2020-03-04] MEDS: PRAZOSIN 1 MG CAP PO SCH (20:48)
[2020-03-04] MEDS: KETOROLAC 15 MG/ML 1 ML VIAL IVP PRN (20:49)
--- NOTE | 2020-03-04 22:28 | P.CONS ---
History of Present Illness - Reason for Consult Consult date: 03/04/20 ESBL E. coli infection Requesting physician: Kareem Thornton - Chief Complaint Right flank pain and fever x 1 day - History of Present Illness Patient is a 24-year-old female who recently was evaluated at [facility] ER on , 02/29/2020 with the patient presented with the urine and burning or frequency patient was diagnosed with urinary tract infection and discharged home on oral antibiotics however the patient likely would antibiotic those were, patient is not presenting back to the hospital today with concern for no improvement in her urinary symptoms and is also complaining of right flank pain patient described the pain to more of a sharp nature 7-8 out of 10 and no radiation to have some nausea but no vomiting and apparently some fever at home with these symptoms the patient was evaluated by the physician on arrival to be on this admission the patient has been afebrile she did have a normal white count and was reportedly cloudy however otherwise urinalysis is negative, patient did some of the kidneys and bladder did not show any acute findings, patient did receive a dose of Cefoxitin in the ER has been admitted to the hospital and infectious disease was consulted for further management of antibiotic therapy Review of Systems Positive point has been mentioned in the HPI rest of the systems are negative Past Medical History Past Medical History: Asthma, Diabetes Mellitus, Thyroid Disorder Additional Past Medical History / Comment(s): UTI diagnosed 02/29/20, pyelonephritis assoiated with UTI. History of Any Multi-Drug Resistant Organisms: ESBL Year Discovered:: 02/29/2020 MDRO Source:: urine Past Surgical History: Adenoidectomy, Tonsillectomy Additional Past Anesthesia/Blood Transfusion Reaction / Comm: N/A Past Psychological History: Anxiety, Depression Smoking Status: Never smoker Past Alcohol Use History: Rare Additional Past Alcohol Use History / Comment(s): Occasional drinker-"maybe monthly" Past Drug Use History: Marijuana Additional Drug Use History / Comment(s): Rare use of marijuana-social use - Past Family History Mother Family Medical History: Diabetes Mellitus, Hyperlipidemia, Hypertension, Liver Disease Father Family Medical History: Hypertension Medications and Allergies Home Medications Medication Instructions Recorded Confirmed Type Albuterol Sulfate [Albuterol 1 - 2 puff INHALATION RT-Q6H PRN 02/29/20 03/04/20 History Sulfate Hfa] Cephalexin [Keflex] 500 mg PO Q6HR 7 Days #28 cap 02/29/20 03/04/20 Rx Levothyroxine Sodium [Synthroid] 300 mcg PO HS 02/29/20 03/04/20 History Prazosin [Minipress] 1 mg PO HS 02/29/20 03/04/20 History Mirtazapine Rapid 15mg 15 mg MUCOUS MEM HS 03/04/20 03/04/20 History Omeprazole 20 mg PO DAILY PRN 03/04/20 03/04/20 History Allergies Allergy/AdvReac Type Severity Reaction Status Date / Time clarithromycin [From Biaxin] Allergy Dyspnea Verified 03/04/20 13:15 Penicillins Allergy Dyspnea Verified 03/04/20 13:15 Sulfa (Sulfonamide Allergy Dyspnea Verified 03/04/20 13:15 Antibiotics) tizanidine Allergy Anaphylaxis Verified 03/04/20 13:21 Physical Exam Vitals: Vital Signs Temp Pulse Pulse Resp BP BP Pulse Ox 03/04/20 15:47 98.5 F 72 14 116/65 95 03/04/20 14:48 98.3 F 88 16 138/72 99 03/04/20 13:26 16 137/55 03/04/20 12:22 98.2 F 102 H 20 139/91 99 Intake and Output 03/04/20 03/04/20 03/04/20 06:59 14:59 22:59 Intake Total 1000 Balance 1000 Intake: Amount of Fluid Infused ( 1000 ml) Other: Weight 110.223 kg GENERAL DESCRIPTION: Middle-aged female lying in bed, no distress. No tachypnea or accessory muscle of respiration use. HEENT: Shows Pallor , no scleral icterus. Oral mucous membrane is dry. No pharyngeal erythema or thrush NECK: Trachea central, no thyromegaly. LUNGS: Unlabored breathing. Clear to auscultation anteriorly. No wheeze or crackle. HEART: S1, S2, regular rate and rhythm. No loud murmur ABDOMEN: Soft, no tenderness , guarding or rigidity, no organomegaly EXTREMITIES: No edema of feet. SKIN: No rash, no masses palpable. NEUROLOGICAL: The patient is awake, alert, oriented x3, mood and affect normal. Results CBC & Chem 7: 03/04/20 13:14 03/04/20 13:14 Labs: Abnormal Lab Results - Last 24 Hours (Table) 03/04/20 03/04/20 Range/Units 13:00 13:14 Glucose 107 H (74-99) mg/dL AST 59 H (14-36) U/L ALT 65 H (4-34) U/L Urine Appearance Cloudy H (Clear) Calcium Oxalate Crystal Many H (None) /hpf Urine Mucus Occasional H (None) /hpf Assessment and Plan Assessment: 1- patient presented to the hospital with right flank pain feeling nausea and fever in this patient who was recently diagnosed with urinary tract infection on February 28 with urine culture finalized with ESBL E. coli however this admission patient did not have any fever or elevated white count and the renal significant positive 2-Patient with multiple antibiotic ALLERGIES that would limit the number of antibiotic safe to use (1) Infection due to ESBL-producing Escherichia coli Current Visit: Yes Status: Acute Code(s): A49.8 - OTHER BACTERIAL INFECTIONS OF UNSPECIFIED SITE; Z16.12 - EXTENDED SPECTRUM BETA LACTAMASE (ESBL) RESISTANCE SNOMED Code(s): 511118081 (2) UTI (urinary tract infection) Current Visit: Yes Status: Acute Code(s): N39.0 - URINARY TRACT INFECTION, SITE NOT SPECIFIED SNOMED Code(s): 71517652 Plan: 1- we will repeat UA and culture 2-we will also check CRP and CBC in the morning 3- Invanz 1 g daily while waiting for the repeat UA and CRP to finalize We will follow on clinical condition and cultures to further adjust medication if needed Thank you for this consultation will follow this patient with you
[2020-03-05 03:26] LABS: Appearance,Urine Clear (Clear); Bilirubin,Urine Negative (Negative); Blood,Urine Negative (Negative); Color,Urine Yellow; Glucose,Urine (UA) Negative (Negative); Ketones,Urine Negative (Negative); Leukocyte Esterase,Urine Small (Negative); Mucus,Urine Rare /hpf; Nitrite,Urine Negative (Negative); PH, Urine 5.5 (5.0-8.0); Protein,Urine Negative (Negative); RBC,Urine <1 /hpf (0-5); Specific Gravity,Urine 1.017 (1.001-1.035); Squamous Epithelial Cell,Urine 2 /hpf (0-4); Urobilinogen,Urine <2.0 mg/dL (<2.0); WBC,Urine 4 /hpf (0-5)
[2020-03-05 04:45] LABS: Basophils % (A) 0 %; Eosinophils # (A) 0.2 k/uL (0-0.7); Eosinophils % (A) 3 %; HCT 35.3 % (34.0-46.0); HGB 11.4 gm/dL (11.4-16.0); Lymphocytes # (A) 3.3 k/uL (1.0-4.8); Lymphocytes % (A) 50 %; MCH 30.8 pg (25.0-35.0); MCHC 32.3 g/dL (31.0-37.0); MCV 95.4 fL (80.0-100.0); Mean Platelet Volume 9.6; Monocytes # (A) 0.3 k/uL (0-1.0); Monocytes % (A) 4 %; Neutrophils # (A) 2.7 k/uL (1.3-7.7); Neutrophils % (A) 41 %; Platelet Count 166 k/uL (150-450); RDW 13.6 % (11.5-15.5); WBC 6.6 k/uL (3.8-10.6)
[2020-03-05] MEDS: SODIUM CHLORIDE 0.9% 1,000 ML IV SCH ×3 (06:28→20:55)
--- NOTE | 2020-03-05 07:52 | P.HPIM ---
History of Present Illness H&P Date: 03/04/20 Chief Complaint: ESBL UTI, pyelonephritis, severe pelvic pain, fever and chills. 24-year-old mildly overweight female one of Dr. Cochran patient with past medical history of hypothyroidism, asthma, and borderline diabetes who had recurrent urate tract infection with ESBL in the past who was seen in the emergency room 24 hours earlier after symptom of urinary tract infection for over one week was sent home on oral Bactrim. Patient return to the emergency room on 914 compl aining of worsening pain and discomfort her culture came back as an E. coli with ESBL. Patient was started on meropenem her testing and clinical finding consistent with pyelonephritis she was started on IV antibiotics and admitted to the hospital with above problem. Patient also has been complaining of mild nausea with no vomiting blood sugar has been borderline her thyroid has been well managed as well no other major problem. Review of Systems CONSTITUTIONAL: Well-developed no acute respiratory distress. EYES: No icterus sclerae, no conjunctivitis. EARS, NOSE, MOUTH, THROAT, and FACE: No sore throat, lymphadenopathy, carotid bruits or deformity. RESPIRATORY: No SOB cough or wheezes. CARDIOVASCULAR: No CP, Palpitation, PND, Orthopnea, or angina. GASTROINTESTINAL: No Abd pain, Nausea or vomiting, no Diarrhea or constipation, No GI Bleed, no distention or masses. GENITOURINARY: Sign in and symptom of frequency urgency flank pain slight pelvic pain and discomfort INTEGUMENT/BREAST: Negative for any muscular injury with mild osteoarthritis.. HEMATOLOGIC/LYMPHATIC: Negative for bleed or purpura. MUSCULOSKELTAL: Negative for Myalgia or arthralgia. NEURLOGICAL: No LOC, Sz or syncope, blurred vision dizziness or abnormality.. BEHAVIORAL/PSYCH: Negative. ENDOCRINE: Negative. Past Medical History Past Medical History: Asthma, Diabetes Mellitus, Thyroid Disorder Additional Past Medical History / Comment(s): UTI diagnosed 02/29/20, pyelonephritis assoiated with UTI. History of Any Multi-Drug Resistant Organisms: ESBL Date of last positivie culture/infection: 02/29/2020 MDRO Source:: urine Past Surgical History: Adenoidectomy, Tonsillectomy Additional Past Anesthesia/Blood Transfusion Reaction / Comment(s): N/A Past Psychological History: Anxiety, Depression Smoking Status: Never smoker Past Alcohol Use History: Rare Additional Past Alcohol Use History / Comment(s): Occasional drinker-"maybe monthly" Past Drug Use History: Marijuana Additional Drug Use History / Comment(s): Rare use of marijuana-social use - Past Family History Mother Family Medical History: Diabetes Mellitus, Hyperlipidemia, Hypertension, Liver Disease Father Family Medical History: Hypertension Medications and Allergies Home Medications Medication Instructions Recorded Confirmed Type Albuterol Sulfate [Albuterol 1 - 2 puff INHALATION RT-Q6H PRN 02/29/20 03/04/20 History Sulfate Hfa] Cephalexin [Keflex] 500 mg PO Q6HR 7 Days #28 cap 02/29/20 03/04/20 Rx Levothyroxine Sodium [Synthroid] 300 mcg PO HS 02/29/20 03/04/20 History Prazosin [Minipress] 1 mg PO HS 02/29/20 03/04/20 History Mirtazapine Rapid 15mg 15 mg MUCOUS MEM HS 03/04/20 03/04/20 History Omeprazole 20 mg PO DAILY PRN 03/04/20 03/04/20 History Allergies Allergy/AdvReac Type Severity Reaction Status Date / Time clarithromycin [From Biaxin] Allergy Dyspnea Verified 03/04/20 13:15 Penicillins Allergy Dyspnea Verified 03/04/20 13:15 Sulfa (Sulfonamide Allergy Dyspnea Verified 03/04/20 13:15 Antibiotics) tizanidine Allergy Anaphylaxis Verified 03/04/20 13:21 Physical Exam Vitals: Vital Signs Temp Pulse Pulse Resp BP BP Pulse Ox 03/04/20 16:00 14 03/04/20 15:47 98.5 F 72 14 116/65 95 03/04/20 14:48 98.3 F 88 16 138/72 99 03/04/20 13:26 16 137/55 03/04/20 12:22 98.2 F 102 H 20 139/91 99 Intake and Output 03/04/20 03/04/20 03/04/20 06:59 14:59 22:59 Intake Total 1000 Balance 1000 Intake: Amount of Fluid Infused ( 1000 ml) Other: Voiding Method Toilet Weight 110.223 kg General Appearance: Alert, cooperative, no distress, appears stated age. Moderately overweight Neck HEENT: Supple, no lymphadenopathy, no thyroid enlargement, no carotid bruits. Lungs: Clear to auscultation without crackles or wheezes no rhonchi, no deformity. Chest Wall: Chest wall normal expansion with deep inspiration no tenderness and no deformity was found on exam, no costochondral pain or discomfort. Heart: Regular rate and rhythm, S1, S2 normal, no murmur, rub or gallop. Back: Symmetric, no curvature, ROM normal, slight CVS tenderness bilaterally. Abdomen: Mild discomfort and tenderness in the lower abdominal region area and flank area bilaterally positive bowel sounds normal organomegaly. Extremities: Extremities normal, atraumatic, no cyanosis or edema. Pulses: 2+ and symmetric. Skin: Skin color, texture, tugor normal, no rashes or lesions. Neurologic: Alert oriented x3 cranial nerves II through XII intact, no motor deficit, no abnormal balance or gait. Results CBC & Chem 7: 03/05/20 04:32 03/04/20 13:14 Labs: Abnormal Lab Results - Last 24 Hours (Table) 03/04/20 03/04/20 Range/Units 13:00 13:14 Glucose 107 H (74-99) mg/dL AST 59 H (14-36) U/L ALT 65 H (4-34) U/L Urine Appearance Cloudy H (Clear) Calcium Oxalate Crystal Many H (None) /hpf Urine Mucus Occasional H (None) /hpf Thrombosis Risk Factor Assmnt - Choose All That Apply Any of the Below Risk Factors Present?: Yes Each Factor Represents 1 point: Obesity (BMI >25) Thrombosis Risk Factor Assessment Total Risk Factor Score: 1 Thrombosis Risk Factor Assessment Level: Low Risk Assessment and Plan Assessment: 1 UTI with sepsis: Patient has pyelonephritis patient was started on IV antibiot ic continue hydration infectious disease management and patient will require IV antibiotic for the next 7-10 days. 2 ESBL: Patient was started on meropenem will be seen Dr. Arshad infectious disease and further management with IV antibiotics. 3 hypothyroidism: Continue patient on levothyroxine at 300 g daily she seen endocrinology. 4 chronic history of GERD: Has been on omeprazole 20 mg a day. 5 chronic depression: Patient has been on mirtazapine 15 mg daily. 6 asthma: Patient is on rescue inhaler only no flareup lately. 7 elevated blood pressure: Has been on Minipress 1 mg daily. 8 borderline diabetes: Accu-Chek with sliding scales coverage continue diet control we will add metformin if needed. CODE STATUS: Full code. Admit patient to inpatient service for more than 2 night stay.
[2020-03-05] MEDS: PANTOPRAZOLE 40 MG/10 ML VIAL IV SCH (08:39)
[2020-03-05] MEDS: KETOROLAC 15 MG/ML 1 ML VIAL IVP PRN (08:39)
[2020-03-05 11:44] LABS: African American GFR (CKD) 119.6 (60.0-200.0); Anion Gap 10.1 mmol/L (4.00-12.00); BUN/Creat Ratio 16.25 Ratio (12.00-20.00); C Reactive Protein 0.4 mg/dL (0.0-0.8); Calcium 8.6 mg/dL (8.7-10.3); Carbon Dioxide 24.9 mmol/L (21.6-31.8); Non-African American GFR(CKD) 103.2 (60.0-200.0); Potassium 4.6 mmol/L (3.5-5.5)
--- NOTE | 2020-03-05 14:52 | P.PN ---
Subjective Progress Note Date: 03/05/20 24-year-old mildly overweight female one of Dr. Cochran patient with past medical history of hypothyroidism, asthma, and borderline diabetes who had recurrent urate tract infection with ESBL in the past who was seen in the emergency room 24 hours earlier after symptom of urinary tract infection for over one week was sent home on oral Bactrim. Patient return to the emergency room on 914 complaining of worsening pain and discomfort her culture came back as an E. coli with ESBL. Patient was started on meropenem her testing and clinical finding consistent with pyelonephritis she was started on IV antibiotics and admitted to the hospital with above problem. Patient also has been complaining of mild nausea with no vomiting blood sugar has been borderline her thyroid has been well managed as well no other major problem. 03/05: Patient states she is feeling a little bit better today. She still has d ysuria but improved from yesterday. Patient is seen and followed by Dr. Arshad, repeat UA and culture in progress. CRP and CBC have been ordered. Dr. Arshad has recommended Invanz IV. Repeat CBC is normal, electrolytes and renal function normal. C-reactive protein is 0.4. Urinalysis is clear with leukoesterase small. Renal ultrasound reveals no hydronephrosis. Patient's been afebrile, heart rate 68, blood pressure 101/64 and pulse ox 96% on room air. Review of Systems CONSTITUTIONAL: Well-developed no acute respiratory distress. Denies fever, denies chills. EYES: No icterus sclerae, no conjunctivitis. EARS, NOSE, MOUTH, THROAT, and FACE: No sore throat, lymphadenopathy, carotid bruits or deformity. RESPIRATORY: No SOB cough or wheezes. CARDIOVASCULAR: No CP, Palpitation, PND, Orthopnea, or angina. GASTROINTESTINAL: No Abd pain, Nausea or vomiting, no Diarrhea or constipation, No GI Bleed, no distention or masses. GENITOURINARY: Sign in and symptom of frequency urgency flank pain slight pelvic pain and discomfort but reports dysuria INTEGUMENT/BREAST: Negative for any muscular injury with mild osteoarthritis.. HEMATOLOGIC/LYMPHATIC: Negative for bleed or purpura. MUSCULOSKELTAL: Negative for Myalgia or arthralgia. NEURLOGICAL: No LOC, Sz or syncope, blurred vision dizziness or abnormality.. BEHAVIORAL/PSYCH: Negative. ENDOCRINE: Negative. Physical Examination General Appearance: Alert, cooperative, no distress, appears stated age. Morbidly obese 24-year-old female. Neck HEENT: Supple, no lymphadenopathy, no thyroid enlargement, no carotid bruits. Lungs: Clear to auscultation without crackles or wheezes no rhonchi, no deformity. Chest Wall: Chest wall normal expansion with deep inspiration no tenderness and no deformity was found on exam, no costochondral pain or discomfort. Heart: Regular rate and rhythm, S1, S2 normal, no murmur, rub or gallop. Back: Symmetric, no curvature, ROM normal, slight CVS tenderness bilaterally. Abdomen: Mild discomfort and tenderness in the lower abdominal region area and flank area bilaterally positive bowel sounds normal organomegaly. Extremities: Extremities normal, atraumatic, no cyanosis or edema. Pulses: 2+ and symmetric. Skin: Skin color, texture, tugor normal, no rashes or lesions. Neurologic: Alert oriented x3 cranial nerves II through XII intact, no motor deficit, no abnormal balance or gait. Assessment and Plan 1 UTI with sepsis: Patient has pyelonephritis patient was started on IV antibiotic continue hydration infectious disease management and patient will require IV antibiotic for the next 7-10 days. Consult with infectious disease appreciated. Patient is currently on Invanz. 2 ESBL: Patient was started on meropenem will be seen Dr. Arshad infectious disease and further management with IV antibiotics. 3 hypothyroidism: Continue patient on levothyroxine at 300 g daily she seen endocrinology. 4 chronic history of GERD: Has been on omeprazole 20 mg a day. 5 recurrent depression: Patient has been on mirtazapine 15 mg daily. 6 Mild intermittent asthma: Patient is on rescue inhaler only no flareup lately. 7 elevated blood pressure: Has been on Minipress 1 mg daily. 8 borderline diabetes: Accu-Chek with sliding scales coverage continue diet control we will add metformin if needed. CODE STATUS: Full code. Discharge plan: Home Impression and plan of care have been directed as dictated by the signing physician. Chinyere Hinojosa nurse practitioner acting as scribe for signing physician. Objective - Vital Signs Vital signs: Vital Signs Temp 97.8 F 03/05/20 05:00 Pulse 80 03/05/20 05:00 Resp 18 03/05/20 05:00 BP 96/58 03/05/20 05:00 Pulse Ox 97 03/05/20 05:00 Intake & Output 03/04/20 03/05/20 03/05/20 18:59 06:59 18:59 Intake Total 1000 193 Balance 1000 193 Weight 110.223 kg Intake: Amount of Fluid Infused ( 1000 ml) Intake, IV Titration 1430 Amount Sodium Chloride 0.9% 1, 1430 000 ml @ 130 mls/hr IV . [id number] [facility] Rx#:[id number] Oral 500 Other: Voiding Method Toilet Toilet Toilet # Voids 1 - Labs CBC & Chem 7: 03/05/20 04:32 03/05/20 04:32 Labs: Abnormal Lab Results - Last 24 Hours (Table) 03/04/20 03/04/20 03/05/20 Range/Units 13:00 13:14 03:10 RBC (3.80-5.40) m/uL Glucose 107 H (74-99) mg/dL AST 59 H (14-36) U/L ALT 65 H (4-34) U/L Urine Appearance Cloudy H (Clear) Ur Leukocyte Esterase Small H (Negative) Calcium Oxalate Crystal Many H (None) /hpf Urine Mucus Occasional H Rare H (None) /hpf 03/05/20 Range/Units 04:32 RBC 3.70 L (3.80-5.40) m/uL Glucose (74-99) mg/dL AST (14-36) U/L ALT (4-34) U/L Urine Appearance (Clear) Ur Leukocyte Esterase (Negative) Calcium Oxalate Crystal (None) /hpf Urine Mucus (None) /hpf
--- NOTE | 2020-03-05 16:07 | PN ---
PROGRESS NOTE DATE OF SERVICE: 03/05/2020 REASON FOR FOLLOWUP: ESBL E coli urinary tract infection. INTERVAL HISTORY: The patient is currently afebrile. The patient is feeling better. Breathing comfortably. The patient's pain to the right flank area has slightly decreased. No nausea, no vomiting. No abdominal pain, no diarrhea. PHYSICAL EXAMINATION: Blood pressure 101/64 with a pulse of 68, temperature 98.3, she is 96% on room air. General description is a middle-aged female lying in bed in no distress. RESPIRATORY SYSTEM: Unlabored breathing, clear to auscultation anteriorly. HEART: S1, S2. Regular rate and rhythm. ABDOMEN: Soft, no tenderness. LABS: Hemoglobin 11.4, white count 6.6, BUN of 13, creatinine 0.8. Repeat urine is negative except small leukocyte esterase. DIAGNOSTIC IMPRESSION AND PLAN: Patient admitted to the hospital with a urinary symptoms and did have right flank pain with concern for possible pyelonephritis clinically, not behaving with no fever, elevated white count, CRP normal, possible cystitis. She has recent urine culture positive for ESBL E coli. She received 2 days of Invanz, another dose tomorrow should be enough. No plan for any outpatient antibiotic recommendation on discharge. MMODL / IJN: [id number] /
[2020-03-05] MEDS: ERTAPENEM 1 GM in SODIUM CHLORIDE 0.9% 50 ML IVPB SCH (16:53)
[2020-03-05] MEDS: MIRTAZAPINE 15 MG TAB PO SCH (20:54)
[2020-03-05] MEDS: PRAZOSIN 1 MG CAP PO SCH (20:54)
[2020-03-05] MEDS: LEVOTHYROXINE 100 MCG TAB PO SCH (20:55)
[2020-03-06 00:08] VITALS: RESP 18
[2020-03-06] MEDS: SODIUM CHLORIDE 0.9% 1,000 ML IV SCH ×2 (04:34→10:24)
--- NOTE | 2020-03-06 08:08 | P.DS ---
Providers Date of admission: 03/04/20 12:57 Expected date of discharge: 03/06/20 Attending physician: Kareem Thornton Consults: 03/04/20 13:36 Consult Physician Stat Consulting Provider: Chema Arshad Consult Reason/Comments: esbl uti Do you want consulting provider notified?: Yes Primary care physician: Mary Restrepo MD Hospital Course: 24-year-old mildly overweight female one of Dr. Cochran patient with past medical history of hypothyroidism, asthma, and borderline diabetes who had recurrent urate tract infection with ESBL in the past who was seen in the emergency room 24 hours earlier after symptom of urinary tract infection for over one week was sent home on oral Bactrim. Patient return to the emergency room on 914 complaining of worsening pain and discomfort her culture came back as an E. coli with ESBL. Patient was started on meropenem her testing and clinical finding consistent with pyelonephritis she was started on IV antibiotics and admitted to the hospital with above problem. Patient also has been complaining of mild nausea with no vomiting blood sugar has been borderline her thyroid has been well managed as well no other major problem. 03/05: Patient states she is feeling a little bit better today. She still has dysuria but improved from yesterday. Patient is seen and followed by Dr. Arshad, repeat UA and culture in progress. CRP and CBC have been ordered. Dr. Arshad has recommended Invanz IV. Repeat CBC is normal, electrolytes and renal function normal. C-reactive protein is 0.4. Urinalysis is clear with leukoesterase small. Renal ultrasound reveals no hydronephrosis. Patient's been afebrile, heart rate 68, blood pressure 101/64 and pulse ox 96% on room air. 03/06: Patient has been afebrile, heart rate 70, blood pressure 93/58, pulse ox 95% on room air. Discussed case with Dr. Arshad and he recommended one more dose of Invanz and patient is cleared for discharge. Blood cultures showing no growth at 24 hours. The patient is tolerating diet without nausea or vomiting. Patient will be discharged home today in stable condition. Assessment and Plan 1 UTI with sepsis 2 ESBL 3 hypothyroidism 4 chronic history of GERD 5 recurrent depression 6 Mild intermittent asthma 7 elevated blood pressure: 8 borderline diabetes Discharge plan: Home Impression and plan of care have been directed as dictated by the signing physician. Chinyere Hinojosa nurse practitioner acting as scribe for signing physician. Patient Condition at Discharge: Good Plan - Discharge Summary New Discharge Prescriptions: Continue Levothyroxine Sodium [Synthroid] 300 mcg PO HS Prazosin [Minipress] 1 mg PO HS Albuterol Sulfate [Albuterol Sulfate Hfa] 1 - 2 puff INHALATION RT-Q6H PRN PRN Reason: Shortness Of Breath Omeprazole 20 mg PO DAILY PRN PRN Reason: Heartburn Mirtazapine Rapid 15mg 15 mg MUCOUS MEM HS Discontinued Cephalexin [Keflex] 500 mg PO Q6HR 7 Days #28 cap Discharge Medication List Albuterol Sulfate [Albuterol Sulfate Hfa] 1 - 2 puff INHALATION RT-Q6H PRN 02/29/20 [History] Levothyroxine Sodium [Synthroid] 300 mcg PO HS 02/29/20 [History] Prazosin [Minipress] 1 mg PO HS 02/29/20 [History] Mirtazapine Rapid 15mg 15 mg MUCOUS MEM HS 03/04/20 [History] Omeprazole 20 mg PO DAILY PRN 03/04/20 [History] Follow up Appointment(s)/Referral(s): Mary Restrepo MD [Primary Care Provider] - 03/14/20 2:15 pm Discharge Disposition: HOME SELF-CARE
[2020-03-06] MEDS: PANTOPRAZOLE 40 MG/10 ML VIAL IV SCH (08:14)
[2020-03-06] MEDS: ERTAPENEM 1 GM in SODIUM CHLORIDE 0.9% 50 ML IVPB SCH (11:59)
[2020-03-06 12:02] VITALS: BP 101/65; PULSE 62; TEMP 98.3
--- NOTE | 2020-03-06 12:29 | PN ---
PROGRESS NOTE DATE OF SERVICE: 03/06/2020 REASON FOR FOLLOWUP: ESBL E coli urinary tract infection. INTERVAL HISTORY: Patient is currently afebrile. The patient is feeling better. Breathing comfortably. The patient's right flank pain has improved. No nausea, no vomiting, no abdominal pain and no diarrhea has improved. PHYSICAL EXAMINATION: Blood pressure 93/50 with a pulse of 78, temperature 97.7. She is 95% on room air. General description is a middle-aged female, lying in bed in no distress. RESPIRATORY SYSTEM: Unlabored breathing, clear to auscultation anteriorly. HEART: S1, S2. Regular rate and rhythm. abdomen. LABS: Hemoglobin 11.4, white count 6, BUN of 13, creatinine 0.8. Blood culture negative. DIAGNOSTIC IMPRESSION AND PLAN: Patient admitted to the hospital with UTI symptoms in this patient. Recent culture positive ESBL E coli. Adequately, she received a dose of Invanz today with 3 doses for the cystitis. Clinically doubt pyelonephritis. This was discussed with the admitting physician. RICARDO / OLGAN: [id number] / MTDD
[2020-03-07] MEDS ORDERED: PANTOPRAZOLE 40 MG TABLET PO SCH (07:30)
== END 2020-03-06 14:46 | disposition home or self-care (01) ==
LOC: EC 12:01 → INTOOBSV 12:57 → 6NMEDSUR 12:57 → UNDODISIN 03-06 14:46
PROVIDERS: ADMIT Internal Medicine Geriatric Medicine; ATTEND Internal Medicine Geriatric Medicine
DX: A41.51 Sepsis due to Escherichia coli [E. coli] (principal); N30.90 Cystitis, unspecified without hematuria; Z16.12 Extended spectrum beta lactamase (ESBL) resistance; E03.9 Hypothyroidism, unspecified; J45.20 Mild intermittent asthma, uncomplicated; E11.9 Type 2 diabetes mellitus without complications; F33.9 Major depressive disorder, recurrent, unspecified; F41.9 Anxiety disorder, unspecified; K21.9 Gastro-esophageal reflux disease without esophagitis; Z79.890 Hormone replacement therapy; Z79.899 Other long term (current) drug therapy; Z88.0 Allergy status to penicillin; Z88.1 Allergy status to other antibiotic agents; Z88.2 Allergy status to sulfonamides; Z88.8 Allergy status to other drugs, medicaments and biological substances; Z90.89 Acquired absence of other organs; Z82.49 Family history of ischemic heart disease and other diseases of the circulatory system; Z83.3 Family history of diabetes mellitus; Z83.79 Family history of other diseases of the digestive system; Z83.438 Family history of other disorder of lipoprotein metabolism and other lipidemia
CPT/HCPCS: 96376 ×3; 96361 ×4; 96366 ×2; 96367; 96375 ×2; 96365; 99285; 36415; 93005; 80053; 80048; 83605; 85025 ×2; 85610; 85730; 86140; 81001; 87040; 76770; G0378 ×3; J2270; J2405 ×2; J0694; J1335 ×3; J1885 ×2; C9113 ×2

== ENCOUNTER 2020-03-07 17:09 | Emergency (ER) | payer OTHER ==
[2020-03-07 17:18] VITALS: RESP 18; TEMP 98.5
[2020-03-07] MEDS ORDERED: ONDANSETRON 4 MG/2 ML VIAL IVP STA (17:56)
[2020-03-07] MEDS ORDERED: KETOROLAC 15 MG/ML 1 ML VIAL IVP STA (17:56)
[2020-03-07] MEDS ORDERED: SODIUM CHLORIDE 0.9% 1,000 ML IV STA (17:56)
--- NOTE | 2020-03-07 17:56 | ED ---
Female Urogenital HPI - General Chief complaint: Urogenital Stated complaint: Revisit-dizzy/nausea/fever Time Seen by Provider: 03/07/20 17:25 Source: patient Mode of arrival: ambulatory Limitations: no limitations - History of Present Illness Initial comments: Patient is a 24-year-old female presenting to emergency Department with a chief complaint of a UTI. Patient states she has history e. coli with ESLR. States she was noted 3 days ago to the hospital for pyelonephritis and was kept in for IV antibiotics. Patient states throughout the course she was given antiemetics and analgesia. Patient reports her back pain has improved since she was a dmitted. States today the patient was discharged and afterwards states the pain in her abdomen is increased. Patient reports nausea and she is not been able to tolerate any fluids or solids. Patient states she was not discharged with any medication from the hospital. States now she continues to have chills but never actually obtain a temperature. She continues to complain of dysuria. States now she is feeling lightheaded like she is going to pass out but there is no dizziness. - Related Data Home Medications Medication Instructions Recorded Confirmed Albuterol Sulfate [Albuterol 1 - 2 puff INHALATION RT-Q6H PRN 02/29/20 03/04/20 Sulfate Hfa] Levothyroxine Sodium [Synthroid] 300 mcg PO HS 02/29/20 03/04/20 Prazosin [Minipress] 1 mg PO HS 02/29/20 03/04/20 Mirtazapine Rapid 15mg 15 mg MUCOUS MEM HS 03/04/20 03/04/20 Omeprazole 20 mg PO DAILY PRN 03/04/20 03/04/20 Previous Rx's Medication Instructions Recorded Ondansetron Odt [Zofran Odt] 4 mg PO Q8HR PRN #20 tab 03/07/20 traMADol HCL [Ultram] 50 mg PO Q6HR PRN 3 Days #12 tab 03/07/20 Allergies Allergy/AdvReac Type Severity Reaction Status Date / Time clarithromycin [From Biaxin] Allergy Dyspnea Verified 03/07/20 17:16 Penicillins Allergy Dyspnea Verified 03/07/20 17:16 Sulfa (Sulfonamide Allergy Dyspnea Verified 03/07/20 17:16 Antibiotics) tizanidine Allergy Anaphylaxis Verified 03/07/20 17:16 Review of Systems ROS Statement: Those systems with pertinent positive or pertinent negative responses have been documented in the HPI. ROS Other: All systems not noted in ROS Statement are negative. Past Medical History Past Medical History: Asthma, Diabetes Mellitus, Thyroid Disorder Additional Past Medical History / Comment(s): UTI diagnosed 02/29/20, py elonephritis assoiated with UTI. History of Any Multi-Drug Resistant Organisms: ESBL Date of last positivie culture/infection: 02/29/2020 MDRO Source:: urine Past Surgical History: Adenoidectomy, Tonsillectomy Additional Past Anesthesia/Blood Transfusion Reaction / Comment(s): N/A Past Psychological History: Anxiety, Depression Smoking Status: Never smoker Past Alcohol Use History: Rare Past Drug Use History: Marijuana - Past Family History Mother Family Medical History: Diabetes Mellitus, Hyperlipidemia, Hypertension, Liver Disease Father Family Medical History: Hypertension General Exam Limitations: no limitations General appearance: alert, in no apparent distress, obese Head exam: Present: atraumatic, normocephalic, normal inspection Eye exam: Present: normal appearance, PERRL, EOMI Pupils: Present: normal accommodation ENT exam: Present: normal exam, normal oropharynx, mucous membranes moist Neck exam: Present: normal inspection, full ROM Respiratory exam: Present: normal lung sounds bilaterally. Absent: respiratory distress, wheezes, rales Cardiovascular Exam: Present: regular rate, normal rhythm, normal heart sounds GI/Abdominal exam: Present: soft, tenderness (Mild right flank). Absent: distended Extremities exam: Present: normal inspection, full ROM, normal capillary refill Back exam: Present: normal inspection, full ROM, tenderness, CVA tenderness (R) Neurological exam: Present: alert, oriented X3, normal gait Psychiatric exam: Present: normal affect, normal mood Skin exam: Present: warm, dry, intact, normal color Course Vital Signs 03/07/20 03/07/20 17:16 18:50 Temperature 98.5 F Pulse Rate 82 92 Respiratory 18 18 Rate Blood Pressure 121/86 114/72 O2 Sat by Pulse 99 99 Oximetry Medical Decision Making - Medical Decision Making Patient is a 24-year-old female presenting to the emergency room with a chief complaint of a UTI. Patient is a carrier of E. coli with ESLB. Patient was discharged yesterday after receiving Invanz IV. She was not discharged with her medication. Today initial evaluation, patient is having right CVA tenderness with some nausea. Patient was given IV fluids, antiemetics and analgesia. A reevaluation patient reports improvement in his symptoms. Her vitals are stable. CBC shows no leukocytosis. CMP is unremarkable. UA is clean. At this point, patient needs symptomatically control but her infection appears to be cleared up. Patient will be discharged with Zofran and tramadol. I suspect her lightheadedness was secondary to not drinking fluids due to her nausea. She was advised not to drive or operate heavy machinery when taking medication. Strict return parameters were thoroughly discussed with patient is understanding and agreeable. Case discussed with physician. - Lab Data Result diagrams: 03/07/20 18:03 03/07/20 18:03 Lab Results 03/07/20 03/07/20 03/07/20 Range/Units 18:03 18:03 18:03 WBC 8.2 (3.8-10.6) k/uL RBC 3.97 (3.80-5.40) m/uL Hgb 12.2 (11.4-16.0) gm/dL Hct 36.6 (34.0-46.0) % MCV 92.3 (80.0-100.0) fL MCH 30.8 (25.0-35.0) pg MCHC 33.4 (31.0-37.0) g/dL RDW 13.4 (11.5-15.5) % Plt Count 202 (150-450) k/uL Neutrophils % 59 % Lymphocytes % 33 % Monocytes % 4 % Eosinophils % 3 % Basophils % 0 % Neutrophils # 4.9 (1.3-7.7) k/uL Lymphocytes # 2.7 (1.0-4.8) k/uL Monocytes # 0.3 (0-1.0) k/uL Eosinophils # 0.2 (0-0.7) k/uL Basophils # 0.0 (0-0.2) k/uL Sodium 141 (137-145) mmol/L Potassium 4.1 (3.5-5.1) mmol/L Chloride 105 (98-107) mmol/L Carbon Dioxide 26 (22-30) mmol/L Anion Gap 10 mmol/L BUN 12 (7-17) mg/dL Creatinine 0.74 (0.52-1.04) mg/dL Est GFR (CKD-EPI)AfAm >90 (>60 ml/min/1.73 sqM) Est GFR (CKD-EPI)NonAf >90 (>60 ml/min/1.73 sqM) Glucose 110 H (74-99) mg/dL Plasma Lactic Acid Kamaljit (0.7-2.0) mmol/L Calcium 9.8 (8.4-10.2) mg/dL Total Bilirubin 0.4 (0.2-1.3) mg/dL AST 43 H (14-36) U/L ALT 55 H (4-34) U/L Alkaline Phosphatase 50 (38-126) U/L Total Protein 7.3 (6.3-8.2) g/dL Albumin 4.7 (3.5-5.0) g/dL Urine Color Light Yellow Urine Appearance Clear (Clear) Urine pH 6.5 (5.0-8.0) Ur Specific Stewart 1.008 (1.001-1.035) Urine Protein Negative (Negative) Urine Glucose (UA) Negative (Negative) Urine Ketones Negative (Negative) Urine Blood Negative (Negative) Urine Nitrite Negative (Negative) Urine Bilirubin Negative (Negative) Urine Urobilinogen <2.0 (<2.0) mg/dL Ur Leukocyte Esterase Negative (Negative) 03/07/20 Range/Units 18:03 WBC (3.8-10.6) k/uL RBC (3.80-5.40) m/uL Hgb (11.4-16.0) gm/dL Hct (34.0-46.0) % MCV (80.0-100.0) fL MCH (25.0-35.0) pg MCHC (31.0-37.0) g/dL RDW (11.5-15.5) % Plt Count (150-450) k/uL Neutrophils % % Lymphocytes % % Monocytes % % Eosinophils % % Basophils % % Neutrophils # (1.3-7.7) k/uL Lymphocytes # (1.0-4.8) k/uL Monocytes # (0-1.0) k/uL Eosinophils # (0-0.7) k/uL Basophils # (0-0.2) k/uL Sodium (137-145) mmol/L Potassium (3.5-5.1) mmol/L Chloride (98-107) mmol/L Carbon Dioxide (22-30) mmol/L Anion Gap mmol/L BUN (7-17) mg/dL Creatinine (0.52-1.04) mg/dL Est GFR (CKD-EPI)AfAm (>60 ml/min/1.73 sqM) Est GFR (CKD-EPI)NonAf (>60 ml/min/1.73 sqM) Glucose (74-99) mg/dL Plasma Lactic Acid Kamaljit 0.9 (0.7-2.0) mmol/L Calcium (8.4-10.2) mg/dL Total Bilirubin (0.2-1.3) mg/dL AST (14-36) U/L ALT (4-34) U/L Alkaline Phosphatase (38-126) U/L Total Protein (6.3-8.2) g/dL Albumin (3.5-5.0) g/dL Urine Color Urine Appearance (Clear) Urine pH (5.0-8.0) Ur Specific Stewart (1.001-1.035) Urine Protein (Negative) Urine Glucose (UA) (Negative) Urine Ketones (Negative) Urine Blood (Negative) Urine Nitrite (Negative) Urine Bilirubin (Negative) Urine Urobilinogen (<2.0) mg/dL Ur Leukocyte Esterase (Negative) Disposition Clinical Impression: Cystitis Disposition: HOME SELF-CARE Condition: Stable Additional Instructions: Take prescribed medication as directed. Follow-up with her primary care physician. Return to emergency department if symptoms worsen. Prescriptions: Ondansetron Odt [Zofran Odt] 4 mg PO Q8HR PRN #20 tab PRN Reason: Nausea Is patient prescribed a controlled substance at d/c from ED?: No Referrals: Mary Restrepo MD [Primary Care Provider] - 1-2 days Time of Disposition: 19:08
[2020-03-07 18:13] LABS: Basophils % (A) 0 %; Eosinophils # (A) 0.2 k/uL (0-0.7); Eosinophils % (A) 3 %; HCT 36.6 % (34.0-46.0); HGB 12.2 gm/dL (11.4-16.0); Lymphocytes # (A) 2.7 k/uL (1.0-4.8); Lymphocytes % (A) 33 %; MCH 30.8 pg (25.0-35.0); MCHC 33.4 g/dL (31.0-37.0); MCV 92.3 fL (80.0-100.0); Mean Platelet Volume 8.4; Monocytes # (A) 0.3 k/uL (0-1.0); Monocytes % (A) 4 %; Neutrophils # (A) 4.9 k/uL (1.3-7.7); Neutrophils % (A) 59 %; Platelet Count 202 k/uL (150-450); RBC 3.97 m/uL (3.80-5.40); RDW 13.4 % (11.5-15.5); WBC 8.2 k/uL (3.8-10.6)
[2020-03-07 18:14] LABS: Appearance,Urine Clear (Clear); Bilirubin,Urine Negative (Negative); Blood,Urine Negative (Negative); Color,Urine Light Yellow; Glucose,Urine (UA) Negative (Negative); Ketones,Urine Negative (Negative); Leukocyte Esterase,Urine Negative (Negative); Nitrite,Urine Negative (Negative); PH, Urine 6.5 (5.0-8.0); Protein,Urine Negative (Negative); Specific Gravity,Urine 1.008 (1.001-1.035); Urobilinogen,Urine <2.0 mg/dL (<2.0)
[2020-03-07 18:20] LABS: ALT 55 U/L (4-34); AST 43 U/L (14-36); African American GFR (CKD) >90 (>60 ml/min/1.73 sqM); Albumin 4.7 g/dL (3.5-5.0); Alkaline Phosphatase 50 U/L (38-126); Anion Gap 10 mmol/L; Blood Urea Nitrogen 12 mg/dL (7-17); Calcium 9.8 mg/dL (8.4-10.2); Carbon Dioxide 26 mmol/L (22-30); Chloride 105 mmol/L (98-107); Glucose 110 mg/dL (74-99); Non-African American GFR(CKD) >90 (>60 ml/min/1.73 sqM); Potassium 4.1 mmol/L (3.5-5.1); Sodium 141 mmol/L (137-145); Total Bilirubin 0.4 mg/dL (0.2-1.3); Total Protein 7.3 g/dL (6.3-8.2)
[2020-03-07 18:51] VITALS: BP 114/72; PULSE 92
[2020-03-07] MEDS ORDERED: traMADol 50 MG STARTER PACK 3 TAB BTL PO STA (18:58)
== END 2020-03-07 19:20 | disposition home or self-care (01) ==
LOC: EC 17:09
DX: N30.80 Other cystitis without hematuria (principal); B96.89 Other specified bacterial agents as the cause of diseases classified elsewhere; B96.20 Unspecified Escherichia coli [E. coli] as the cause of diseases classified elsewhere; J45.909 Unspecified asthma, uncomplicated; F41.9 Anxiety disorder, unspecified; F32.9 Major depressive disorder, single episode, unspecified; M54.9 Dorsalgia, unspecified; E07.9 Disorder of thyroid, unspecified; Z79.51 Long term (current) use of inhaled steroids; Z79.890 Hormone replacement therapy; Z79.899 Other long term (current) drug therapy
CPT/HCPCS: 36415; 80053; 83605; 85025; 81003; 87040; 99284; 96374; 96375; 96361; J2405; J1885

== ENCOUNTER 2020-03-10 01:02 | Observation (INO) | payer OTHER ==
--- NOTE | 2020-03-10 01:39 | ED ---
Fever HPI - General Chief Complaint: Extremity Injury, Upper Stated Complaint: infection Time Seen by Provider: 03/10/20 01:25 Source: patient, EMS, RN notes reviewed, old records reviewed Mode of arrival: EMS Limitations: no limitations - History of Present Illness Initial Comments: This is a 24-year-old female DF for evaluation patient presents today for evaluation regards to symptoms and management. Patient has persistent symptoms. Left upper extremity swelling concern for possible infection, patient is in patient recently for urinary tract infection no fevers. MD Complaint: weakness, other (Pain left laboratory pain) -: days(s) Associated Symptoms: nausea, other (Left upper extremity pain and dysuria) Treatments Prior to Arrival: none - Related Data Home Medications Medication Instructions Recorded Confirmed Albuterol Sulfate [Albuterol 1 - 2 puff INHALATION RT-Q6H PRN 02/29/20 03/04/20 Sulfate Hfa] Levothyroxine Sodium [Synthroid] 300 mcg PO HS 02/29/20 03/04/20 Prazosin [Minipress] 1 mg PO HS 02/29/20 03/04/20 Mirtazapine Rapid 15mg 15 mg MUCOUS MEM HS 03/04/20 03/04/20 Omeprazole 20 mg PO DAILY PRN 03/04/20 03/04/20 Previous Rx's Medication Instructions Recorded Ondansetron Odt [Zofran Odt] 4 mg PO Q8HR PRN #20 tab 03/07/20 traMADol HCL [Ultram] 50 mg PO Q6HR PRN 3 Days #12 tab 03/07/20 Allergies Allergy/AdvReac Type Severity Reaction Status Date / Time clarithromycin [From Biaxin] Allergy Dyspnea Verified 03/10/20 01:13 Penicillins Allergy Dyspnea Verified 03/10/20 01:13 Sulfa (Sulfonamide Allergy Dyspnea Verified 03/10/20 01:13 Antibiotics) tizanidine Allergy Anaphylaxis Verified 03/10/20 01:13 Review of Systems ROS Statement: Those systems with pertinent positive or pertinent negative responses have been documented in the HPI. ROS Other: All systems not noted in ROS Statement are negative. Past Medical History Past Medical History: Asthma, Diabetes Mellitus, Thyroid Disorder Additional Past Medical History / Comment(s): UTI diagnosed 02/29/20, pyelonephritis assoiated with UTI. History of Any Multi-Drug Resistant Organisms: ESBL Date of last positivie culture/infection: 02/29/2020 MDRO Source:: urine Past Surgical History: Adenoidectomy, Tonsillectomy Additional Past Anesthesia/Blood Transfusion Reaction / Comment(s): N/A Past Psychological History: Anxiety, Depression Smoking Status: Never smoker Past Alcohol Use History: Rare Past Drug Use History: Marijuana - Past Family History Mother Family Medical History: Diabetes Mellitus, Hyperlipidemia, Hypertension, Liver Disease Father Family Medical History: Hypertension General Exam Limitations: no limitations General appearance: alert, in no apparent distress Head exam: Present: atraumatic, normocephalic, normal inspection Eye exam: Present: normal appearance, PERRL, EOMI. Absent: scleral icterus, conjunctival injection, periorbital swelling ENT exam: Present: normal exam, mucous membranes moist Neck exam: Present: normal inspection. Absent: tenderness, meningismus, lymphadenopathy Respiratory exam: Present: normal lung sounds bilaterally. Absent: respiratory distress, wheezes, rales, rhonchi, stridor Cardiovascular Exam: Present: regular rate, normal rhythm, normal heart sounds. Absent: systolic murmur, diastolic murmur, rubs, gallop, clicks GI/Abdominal exam: Present: soft, normal bowel sounds. Absent: distended, tenderness, guarding, rebound, rigid Extremities exam: Present: normal inspection, full ROM, normal capillary refill, other (Left upper extremity swelling tenderness and streaking). Absent: tenderness, pedal edema, joint swelling, calf tenderness Back exam: Present: normal inspection Neurological exam: Present: alert, oriented X3, CN II-XII intact Psychiatric exam: Present: normal affect, normal mood Skin exam: Present: warm, dry, intact, normal color. Absent: rash Course Vital Signs 03/10/20 01:07 Temperature 96.8 F L Pulse Rate 106 H Respiratory 18 Rate Blood Pressure 136/90 O2 Sat by Pulse 98 Oximetry - Reevaluation(s) Reevaluation #1: 03/10/20 03:10 Medical record is reviewed Reevaluation #2: 03/10/20 03:10 Patient's in no acute distress, no shortness of breath or chest pain Medical Decision Making - Medical Decision Making 24 female DF reaction significant left upper Shorty pain. Patient wishes continue urinary tract infection type symptoms dehydration left upper Shorty pain patient does have some redness and streaking Vasculitis versus rule out left upper extremity DVT - Lab Data Result diagrams: 03/10/20 02:36 03/10/20 02:36 Lab Results 03/10/20 03/10/20 03/10/20 Range/Units 02:36 02:36 02:36 WBC 8.8 (3.8-10.6) k/uL RBC 3.93 (3.80-5.40) m/uL Hgb 12.0 (11.4-16.0) gm/dL Hct 36.2 (34.0-46.0) % MCV 92.2 (80.0-100.0) fL MCH 30.6 (25.0-35.0) pg MCHC 33.2 (31.0-37.0) g/dL RDW 13.4 (11.5-15.5) % Plt Count 216 (150-450) k/uL Neutrophils % 62 % Lymphocytes % 31 % Monocytes % 4 % Eosinophils % 2 % Basophils % 1 % Neutrophils # 5.4 (1.3-7.7) k/uL Lymphocytes # 2.7 (1.0-4.8) k/uL Monocytes # 0.4 (0-1.0) k/uL Eosinophils # 0.1 (0-0.7) k/uL Basophils # 0.1 (0-0.2) k/uL Sodium 141 (137-145) mmol/L Potassium 3.9 (3.5-5.1) mmol/L Chloride 106 (98-107) mmol/L Carbon Dioxide 24 (22-30) mmol/L Anion Gap 11 mmol/L BUN 12 (7-17) mg/dL Creatinine 0.79 (0.52-1.04) mg/dL Est GFR (CKD-EPI)AfAm >90 (>60 ml/min/1.73 sqM) Est GFR (CKD-EPI)NonAf >90 (>60 ml/min/1.73 sqM) Glucose 133 H (74-99) mg/dL Plasma Lactic Acid Kamaljit 1.7 (0.7-2.0) mmol/L Calcium 10.0 (8.4-10.2) mg/dL Phosphorus 4.0 (2.5-4.5) mg/dL Magnesium 2.0 (1.6-2.3) mg/dL Total Bilirubin 0.4 (0.2-1.3) mg/dL AST 34 (14-36) U/L ALT 45 H (4-34) U/L Alkaline Phosphatase 54 (38-126) U/L Creatine Kinase 59 (30-135) U/L Total Protein 7.2 (6.3-8.2) g/dL Albumin 4.6 (3.5-5.0) g/dL - Radiology Data Radiology results: report reviewed (Chest x-rays negative for acute disease), image reviewed Disposition Clinical Impression: UTI (urinary tract infection), Infection due to ESBL-producing Escherichia coli Narrative: ro LUE DVT Disposition: ADMITTED IP TO THIS HOSP Condition: Good Is patient prescribed a controlled substance at d/c from ED?: No Referrals: Mary Restrepo MD [Primary Care Provider] - 1-2 days
[2020-03-10] MEDS ORDERED: SODIUM CHLORIDE 0.9% 1,000 ML IV STA (01:40)
[2020-03-10] MEDS ORDERED: ENOXAPARIN 120 MG/0.8 ML SYRINGE SQ STA (01:40)
[2020-03-10] MEDS ORDERED: KETOROLAC 15 MG/ML 1 ML VIAL IVP STA (01:40)
[2020-03-10] MEDS ORDERED: MORPHINE SULFATE 4 MG/ML SYRINGE IVP PRN (01:40)
[2020-03-10] MEDS ORDERED: SODIUM CHLORIDE 0.9% 500 ML 500 ML IV STA (01:40)
--- NOTE | 2020-03-10 02:40 | XR ---
EXAMINATION TYPE: XR chest 2V DATE OF EXAM: 03/10/2020 COMPARISON: October 21, 2019 HISTORY: Weakness TECHNIQUE: FINDINGS: Heart and mediastinum are normal. Lungs are clear. Diaphragm is normal. Bony thorax appears normal. IMPRESSION: Normal chest. No change.
[2020-03-10 02:47] LABS: Basophils # (A) 0.1 k/uL (0-0.2); Basophils % (A) 1 %; Eosinophils # (A) 0.1 k/uL (0-0.7); Eosinophils % (A) 2 %; HCT 36.2 % (34.0-46.0); Lymphocytes # (A) 2.7 k/uL (1.0-4.8); Lymphocytes % (A) 31 %; MCH 30.6 pg (25.0-35.0); MCHC 33.2 g/dL (31.0-37.0); MCV 92.2 fL (80.0-100.0); Mean Platelet Volume 8.5; Monocytes # (A) 0.4 k/uL (0-1.0); Monocytes % (A) 4 %; Neutrophils # (A) 5.4 k/uL (1.3-7.7); Neutrophils % (A) 62 %; Platelet Count 216 k/uL (150-450); RBC 3.93 m/uL (3.80-5.40); RDW 13.4 % (11.5-15.5); WBC 8.8 k/uL (3.8-10.6)
[2020-03-10 02:55] LABS: INR 0.9 (<1.2); Partial Thromboplastin Time 23.6 sec (22.0-30.0); Prothrombin Time 9.6 sec (9.0-12.0)
[2020-03-10 02:58] LABS: ALT 45 U/L (4-34); AST 34 U/L (14-36); African American GFR (CKD) >90 (>60 ml/min/1.73 sqM); Albumin 4.6 g/dL (3.5-5.0); Alkaline Phosphatase 54 U/L (38-126); Anion Gap 11 mmol/L; Blood Urea Nitrogen 12 mg/dL (7-17); Carbon Dioxide 24 mmol/L (22-30); Chloride 106 mmol/L (98-107); Creatine Kinase 59 U/L (30-135); Glucose 133 mg/dL (74-99); Non-African American GFR(CKD) >90 (>60 ml/min/1.73 sqM); Potassium 3.9 mmol/L (3.5-5.1); Sodium 141 mmol/L (137-145); Total Bilirubin 0.4 mg/dL (0.2-1.3); Total Protein 7.2 g/dL (6.3-8.2)
[2020-03-10 03:24] LABS: Amorphous Sediment,Urine Rare /hpf; Appearance,Urine Clear (Clear); Bilirubin,Urine Negative (Negative); Blood,Urine Negative (Negative); Color,Urine Yellow; Glucose,Urine (UA) Negative (Negative); Ketones,Urine Negative (Negative); Leukocyte Esterase,Urine Trace (Negative); Mucus,Urine Rare /hpf; Nitrite,Urine Negative (Negative); Protein,Urine Negative (Negative); RBC,Urine 1 /hpf (0-5); Specific Gravity,Urine 1.019 (1.001-1.035); Squamous Epithelial Cell,Urine 1 /hpf (0-4); Urobilinogen,Urine <2.0 mg/dL (<2.0); WBC,Urine 4 /hpf (0-5)
[2020-03-10 05:00] VITALS: RESP 16
[2020-03-10 07:30] VITALS: TEMP 97.9
[2020-03-10] MEDS ORDERED: PANTOPRAZOLE 40 MG TABLET PO PRN (07:41)
[2020-03-10] MEDS ORDERED: ONDANSETRON ODT 4 MG TAB PO PRN (07:41)
[2020-03-10] MEDS ORDERED: traMADol 50 MG TAB PO PRN (07:41)
[2020-03-10] MEDS ORDERED: ALBUTEROL NEBULIZED 2.5 MG/3 ML INHALATION PRN (07:41)
--- NOTE | 2020-03-10 09:07 | US ---
EXAMINATION TYPE: US venous doppler duplex UE LT DATE OF EXAM: 03/10/2020 COMPARISON: NONE CLINICAL HISTORY: DVT. Arm pain. Recent IV in left. SIDE PERFORMED: Left Grayscale, color doppler, spectral doppler imaging performed of the deep veins of the upper extremiti es. Left internal jugular vein, portions of the subclavian vein that are visualized, left axillary ve in, brachial veins are compressible and patent, show no abnormal luminal echo. Ulnar veins, radial ve ins are compressible. Left Arm: Negative for DVT. Positive for nonoccluding SVT in Basilic vein from upper arm to antecubi anita region, there are low-level internal echoes, ready flow on color Doppler. There is normal flow, compressibility and vascular waveforms. IMPRESSION: No evident deep venous thrombosis within the left upper extremity. Superficial venous thrombosis not ed as described.
--- NOTE | 2020-03-10 10:37 | P.CRDCN ---
History of Present Illness Consult date: 03/10/20 History of present illness: CHIEF COMPLAINT: Chest pain HISTORY OF PRESENT ILLNESS: This is a 24-year old female with a past medical history significant for asthma, diabetes mellitus, and recent UTI. 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 We have been asked to see the patient in consultation for chest pain. Patient examined this morning at the bedside. Patient reports she was recently hospitalized secondary to urinary tract infection and had an IV in her left arm. She reports increased swelling redness and pain to left upper extremity. Patient reports she has been having intermittent chest discomfort since yesterday. She reports shortness of breath when she woke up this morning but states it has resolved. She reports the pain is worse with a deep breath. No pain with chest wall palpation. No radiation to jaw or arm. She denies any family history of heart disease. Denies previous history of PE or DVT. Patient states she has a nonsmoker and rarely drinks alcohol. DIAGNOSTICS: EKG reveals sinus rhythm. Chest xray negative for acute process Laboratory data: WBC 8.8. Hemoglobin 12.0. Platelet count 216. Sodium 141. Potassium 3.9. BUN 12. Creatinine 0.79. Current home cardiac medications include none. REVIEW OF SYSTEMS: At the time of my exam: CONSTITUTIONAL: Denies fever or chills. HEENT: Denies blurred vision, vision changes, or eye pain. Denies hemoptysis CARDIOVASCULAR: Reports mild chest discomfort. Denies orthopnea, PND or palpitations RESPIRATORY: No shortness of breath. GASTROINTESTINAL: Denies abdominal pain. Denies nausea or vomiting. HEMATOLOGIC: Denies bleeding disorders. GENITOURINARY: Denies any blood in urine. SKIN: Denies pruitis. Denies rash. PHYSICAL EXAM: VITAL SIGNS: Reviewed. GENERAL: Well-developed in no acute distress. HEENT: Head is normocephalic. Pupils are equal, round. Sclerae anicteric. Mucous membranes of the mouth are moist. Neck supple. No JVD or thyromegaly LUNGS: Respirations even and unlabored. Lungs essentially clear to auscultation bilaterally. HEART: Regular rate and rhythm. S1 and S2 heard. ABDOMEN: Soft. Nondistended. Nontender. EXTREMITIES: Normal range of motion. No clubbing or cyanosis. Peripheral pulses intact. No lower extremity edema. Erythema to left upper extremity NEUROLOGIC: Awake and alert. Oriented x 3. ASSESSMENT: Atypical chest pain Left upper extremity superficial thrombus Recent hospitalization secondary to urinary tract infection and pyelonephritis Diabetes mellitus, type II Morbid obesity: BMI 44.4 PLAN: Obtain troponin Check d-dimer Obtain 2-D echo to assess cardiac structure and function Further recommendations pitting patient course Nurse practitioner note has been reviewed by physician. Signing provider agrees with the documented findings, assessment, and plan of care. Past Medical History Past Medical History: Asthma, Diabetes Mellitus, Thyroid Disorder Additional Past Medical History / Comment(s): UTI diagnosed 02/29/20, p yelonephritis assoiated with UTI. History of Any Multi-Drug Resistant Organisms: ESBL Date of last positivie culture/infection: 02/29/2020 MDRO Source:: urine Past Surgical History: Adenoidectomy, Tonsillectomy Additional Past Anesthesia/Blood Transfusion Reaction / Comment(s): N/A Past Psychological History: Anxiety, Depression Smoking Status: Never smoker Past Alcohol Use History: Rare Additional Past Alcohol Use History / Comment(s): Occasional drinker-"maybe monthly" Past Drug Use History: Marijuana Additional Drug Use History / Comment(s): Rare use of marijuana-social use - Past Family History Mother Family Medical History: Diabetes Mellitus, Hyperlipidemia, Hypertension, Liver Disease Father Family Medical History: Hypertension Medications and Allergies Home Medications Medication Instructions Recorded Confirmed Type Albuterol Sulfate [Albuterol 1 - 2 puff INHALATION RT-Q6H PRN 02/29/20 03/10/20 History Sulfate Hfa] Levothyroxine Sodium [Synthroid] 300 mcg PO HS 02/29/20 03/10/20 History Prazosin [Minipress] 1 mg PO HS 02/29/20 03/10/20 History Mirtazapine Rapid 15mg 15 mg MUCOUS MEM HS 03/04/20 03/10/20 History Omeprazole 20 mg PO DAILY PRN 03/04/20 03/10/20 History Ondansetron Odt [Zofran ODT] 4 mg PO Q8HR PRN #20 tab 03/07/20 03/10/20 Rx traMADol HCL [Ultram] 50 mg PO Q6HR PRN 3 Days #12 tab 03/07/20 03/10/20 Rx Aspirin 325 mg PO DAILY #30 tab 03/10/20 Rx Allergies Allergy/AdvReac Type Severity Reaction Status Date / Time clarithromycin [From Biaxin] Allergy Dyspnea Verified 03/10/20 01:13 Penicillins Allergy Dyspnea Verified 03/10/20 01:13 Sulfa (Sulfonamide Allergy Dyspnea Verified 03/10/20 01:13 Antibiotics) tizanidine Allergy Anaphylaxis Verified 03/10/20 01:13 Physical Exam Vitals: Vital Signs Temp Pulse Pulse Resp BP BP Pulse Ox 03/10/20 07:44 16 03/10/20 07:29 97.9 F 82 16 122/85 96 03/10/20 04:04 98.4 F 91 16 119/78 96 03/10/20 04:00 92 18 126/80 99 03/10/20 03:00 105 H 18 03/10/20 01:07 96.8 F L 106 H 18 136/90 98 Intake and Output 03/09/20 03/10/20 03/10/20 22:59 06:59 14:59 Intake Total 400 Balance 400 Intake: Oral 400 Other: Voiding Method Toilet Toilet Weight 110.223 kg Results 03/10/20 02:36 03/10/20 02:36 Cardiac Enzymes 03/10/20 03/10/20 Range/Units 02:36 08:15 AST 34 (14-36) U/L Troponin I <0.012 (0.000-0.034) ng/mL Coagulation 03/10/20 Range/Units 02:36 PT 9.6 (9.0-12.0) sec APTT 23.6 (22.0-30.0) sec CBC 03/10/20 Range/Units 02:36 WBC 8.8 (3.8-10.6) k/uL RBC 3.93 (3.80-5.40) m/uL Hgb 12.0 (11.4-16.0) gm/dL Hct 36.2 (34.0-46.0) % Plt Count 216 (150-450) k/uL Comprehensive Metabolic Panel 03/10/20 Range/Units 02:36 Sodium 141 (137-145) mmol/L Potassium 3.9 (3.5-5.1) mmol/L Chloride 106 (98-107) mmol/L Carbon Dioxide 24 (22-30) mmol/L BUN 12 (7-17) mg/dL Creatinine 0.79 (0.52-1.04) mg/dL Glucose 133 H (74-99) mg/dL Calcium 10.0 (8.4-10.2) mg/dL AST 34 (14-36) U/L ALT 45 H (4-34) U/L Alkaline Phosphatase 54 (38-126) U/L Total Protein 7.2 (6.3-8.2) g/dL Albumin 4.6 (3.5-5.0) g/dL Current Medications Generic Name Dose Route Start Last Admin Trade Name Freq PRN Reason Stop Dose Admin Albuterol Sulfate 2.5 mg 03/10/20 07:41 Albuterol Nebulized 2.5 Mg/3 Ml INHALATION RT-Q6H PRN Shortness Of Breath Enoxaparin Sodium 120 mg 03/10/20 15:00 Enoxaparin 120 Mg/0.8 Ml Syringe SQ Q12H [facility] Ceftriaxone Sodium 1 gm/ 50 mls @ 100 mls/hr 03/10/20 16:00 Sodium Chloride IVPB Q12H [facility] Levothyroxine Sodium 300 mcg 03/10/20 21:00 Levothyroxine 100 Mcg Tab PO HS [facility] Morphine Sulfate 4 mg 03/10/20 01:40 03/10/20 05:10 Morphine Sulfate 4 Mg/Ml Syringe IVP 4 mg Q4HR PRN Administration Pain Ondansetron HCl 4 mg 03/10/20 07:41 Ondansetron Odt 4 Mg Tab PO Q8HR PRN Nausea Pantoprazole Sodium 40 mg 03/10/20 07:41 Pantoprazole 40 Mg Tablet PO AC-BRKFST PRN Heartburn Prazosin HCl 1 mg 03/10/20 21:00 Prazosin 1 Mg Cap PO HS [facility] Tramadol HCl 50 mg 03/10/20 07:41 Tramadol 50 Mg Tab PO Q6HR PRN Pain Intake and Output 03/09/20 03/10/20 03/10/20 22:59 06:59 14:59 Intake Total 400 Balance 400 Intake: Oral 400 Other: Voiding Method Toilet Toilet Weight 110.223 kg 03/10/20 02:36 03/10/20 02:36
--- NOTE | 2020-03-10 11:03 | P.HPIM ---
History of Present Illness H&P Date: 03/10/20 Chief Complaint: Left arm pain and swelling Please treat this as H&P and discharge summary History of present illness This is a 24-year-old patient who came into the emergency room complaining of left arm swelling and pain with redness. Patient was recently hospitalized on March 03 for UTI where she had a IV placed to the left antecubital. Patient was discharged on the . Patient states that the area showed a small red nose after discharge but has progressively gotten worse with swelling and pain to palpation. Patient came into the emergency room last night due to the increased swelling and pain. Patient utilizes a IUD with hormones and is a nonsmoker. Patient's past medical history is significant for asthma, diet- controlled diabetes mellitus, hyperthyroidism and PCO S This morning patient states that she woke up with chest pain and shortness of breath. Patient states the chest pain was epigastric and nonradiating. And she is no longer experiencing any of that. Patient states that she had history of diabetes however she has lost weight and no longer this occurred to take any medications. Patient has history of hypertension and obesity. Venous Doppler of left upper extremity shows no evidence of deep vein process to the left upper extremity. Superficial venous thrombus noted. Troponins were negative. Review Of Systems: Constitutional: No fever, no chills, no night sweats. No weight change. No weakness, fatigue or lethargy. No daytime sleepiness. EENT: No headache. No blurred vision or double vision, no loss of vision. No loss of Hearing, no ringing in the ears, no dizziness. No nasal drainage or congestion. No epistaxis. No sore throat. Lungs: No shortness of breath, cough, no sputum production. No wheezing. Cardiovascular: No chest pain, no lower extremity edema. No palpitations. No paroxysmal nocturnal dyspnea. No orthopnea. No lightheadedness or dizziness. No syncopal episodes. Abdominal: no abdominal discomfort. No nausea, vomiting. no diarrhea. No c onstipation. No bloody or tarry stools. no loss of appetite. Genitourinary: No dysuria, increased frequency, urgency. No urinary retention. Musculoskeletal: No myalgias. No muscle weakness, no gait dysfunction, no frequent falls. No back pain. No neck pain. Integumentary: No wounds, no lesions. No rash or pruritus. No unusual bruising. No change in hair or nails. Neurologic: No aphasia. No facial droop. No change in mentation. No head injury. No headache. No paralysis. No paresthesia. Psychiatric: No depression. No anxiety. No mood swings. Endocrine: No abnormal blood sugars. No weight change. No excessive sweating or thirst. Social history: Patient denies smoking, patient drinks approximately 1 alcoholic drink a month, patient also smokes marijuana approximately once a week. Family history: Grandfather history of coronary artery disease, mother history of cirrhosis, cardiomyopathy, diabetes type 2, hypercholesterol, father history of hypertension. 3 brothers to unknown histories and the third from suicide with a history of diabetes type 1. Physical examination General Appearance: Alert, cooperative, no distress, appears stated age. Neck HEENT: Supple, no lymphadenopathy, no thyroid enlargement, no carotid bruits. Lungs: Clear to auscultation without crackles or wheezes no rhonchi, no deformity. Chest Wall: Chest wall normal expansion with deep inspiration no tenderness and no deformity was found on exam, no costochondral pain or discomfort. Heart: Regular rate and rhythm, S1, S2 normal, no murmur, rub or gallop. Back: Symmetric, no curvature, ROM normal, no CVA tenderness. Abdomen: Soft, non-tender, no rebound or rigidity, no hepatosplenomegaly. Extremities: Extremities normal, atraumatic, no cyanosis or edema. Pulses: 2+ and symmetric. Skin: Skin color, texture, tugor normal, no rashes or lesions. Neurologic: Alert oriented x3 cranial nerves II through XII intact, no motor deficit, no abnormal balance or gait Assessment and plan 1. Left arm pain rule out DVT. Lovenox, Venous Doppler ultrasound left upper extremity results noted above. Aspirin 325 mg. Utilize cold compresses. 2. Chest pain. Consult cardiology, obtain EKG shows normal sinus rhythm, d- dimer, echocardiogram, troponins negative 3. Urinary tract infection. Rocephin 1 g 4. Asthma albuterol 5. Hypothyroidism. Levothyroxine 300 mcg daily 6. Diabetes mellitus diet controlled 7. PCO S. Tramadol 50 mg every 6 hours as needed 8. DVT prophylaxis. Lovenox 9. GI prophylaxis Protonix 40 mg Discharge plan: Home today Impression and plan of care have been directed as dictated by the signing physician. Rebecca Burnett nurse practitioner acting as scribe for signing physician. Past Medical History Past Medical History: Asthma, Diabetes Mellitus, Thyroid Disorder Additional Past Medical History / Comment(s): UTI diagnosed 02/29/20, pyelonephritis assoiated with UTI. History of Any Multi-Drug Resistant Organisms: ESBL Date of last positivie culture/infection: 02/29/2020 MDRO Source:: urine Past Surgical History: Adenoidectomy, Tonsillectomy Additional Past Anesthesia/Blood Transfusion Reaction / Comment(s): N/A Past Psychological History: Anxiety, Depression Smoking Status: Never smoker Past Alcohol Use History: Rare Additional Past Alcohol Use History / Comment(s): Occasional drinker-"maybe monthly" Past Drug Use History: Marijuana Additional Drug Use History / Comment(s): Rare use of marijuana-social use - Past Family History Mother Family Medical History: Diabetes Mellitus, Hyperlipidemia, Hypertension, Liver Disease Father Family Medical History: Hypertension Medications and Allergies Home Medications Medication Instructions Recorded Confirmed Type Albuterol Sulfate [Albuterol 1 - 2 puff INHALATION RT-Q6H PRN 02/29/20 03/10/20 History Sulfate Hfa] Levothyroxine Sodium [Synthroid] 300 mcg PO HS 02/29/20 03/10/20 History Prazosin [Minipress] 1 mg PO HS 02/29/20 03/10/20 History Mirtazapine Rapid 15mg 15 mg MUCOUS MEM HS 03/04/20 03/10/20 History Omeprazole 20 mg PO DAILY PRN 03/04/20 03/10/20 History Ondansetron Odt [Zofran ODT] 4 mg PO Q8HR PRN #20 tab 03/07/20 03/10/20 Rx traMADol HCL [Ultram] 50 mg PO Q6HR PRN 3 Days #12 tab 03/07/20 03/10/20 Rx Aspirin 325 mg PO DAILY #30 tab 03/10/20 Rx Allergies Allergy/AdvReac Type Severity Reaction Status Date / Time clarithromycin [From Biaxin] Allergy Dyspnea Verified 03/10/20 01:13 Penicillins Allergy Dyspnea Verified 03/10/20 01:13 Sulfa (Sulfonamide Allergy Dyspnea Verified 03/10/20 01:13 Antibiotics) tizanidine Allergy Anaphylaxis Verified 03/10/20 01:13 Physical Exam Vitals: Vital Signs Temp Pulse Pulse Resp BP BP Pulse Ox 03/10/20 07:44 16 03/10/20 07:29 97.9 F 82 16 122/85 96 03/10/20 04:04 98.4 F 91 16 119/78 96 03/10/20 04:00 92 18 126/80 99 03/10/20 03:00 105 H 18 03/10/20 01:07 96.8 F L 106 H 18 136/90 98 Intake and Output 03/09/20 03/10/20 03/10/20 22:59 06:59 14:59 Intake Total 400 Balance 400 Intake: Oral 400 Other: Voiding Method Toilet Toilet Weight 110.223 kg Results CBC & Chem 7: 03/10/20 02:36 03/10/20 02:36 Labs: Abnormal Lab Results - Last 24 Hours (Table) 03/10/20 03/10/20 Range/Units 02:36 02:36 Glucose 133 H (74-99) mg/dL ALT 45 H (4-34) U/L Ur Leukocyte Esterase Trace H (Negative) Amorphous Sediment Rare H (None) /hpf Urine Mucus Rare H (None) /hpf Thrombosis Risk Factor Assmnt - Choose All That Apply Any of the Below Risk Factors Present?: Yes Each Factor Represents 1 point: Obesity (BMI >25) Other Risk Factors: No Thrombosis Risk Factor Assessment Total Risk Factor Score: 1 Thrombosis Risk Factor Assessment Level: Low Risk
[2020-03-10] MEDS ORDERED: ENOXAPARIN 120 MG/0.8 ML SYRINGE SQ SCH (15:00)
[2020-03-10 15:37] VITALS: BP 117/74; PULSE 91
[2020-03-10] MEDS ORDERED: LEVOTHYROXINE 100 MCG TAB PO SCH (21:00)
[2020-03-10] MEDS ORDERED: PRAZOSIN 1 MG CAP PO SCH (21:00)
== END 2020-03-10 16:07 | disposition home or self-care (01) ==
LOC: EC 01:02 → 1SOBS 03:53
PROVIDERS: ADMIT Internal Medicine Geriatric Medicine; ATTEND Internal Medicine Geriatric Medicine
DX: I82.612 Acute embolism and thrombosis of superficial veins of left upper extremity (principal); R07.89 Other chest pain; R11.0 Nausea; R12 Heartburn; N39.0 Urinary tract infection, site not specified; J45.909 Unspecified asthma, uncomplicated; E11.9 Type 2 diabetes mellitus without complications; F41.9 Anxiety disorder, unspecified; E05.90 Thyrotoxicosis, unspecified without thyrotoxic crisis or storm; I10 Essential (primary) hypertension; E03.9 Hypothyroidism, unspecified; F32.9 Major depressive disorder, single episode, unspecified; B96.20 Unspecified Escherichia coli [E. coli] as the cause of diseases classified elsewhere; Z16.12 Extended spectrum beta lactamase (ESBL) resistance; E28.2 Polycystic ovarian syndrome; Z68.41 Body mass index [BMI] 40.0-44.9, adult; E66.01 Morbid (severe) obesity due to excess calories; Z79.890 Hormone replacement therapy; Z79.82 Long term (current) use of aspirin; Z79.891 Long term (current) use of opiate analgesic; Z79.899 Other long term (current) drug therapy; Z88.2 Allergy status to sulfonamides; Z88.0 Allergy status to penicillin; Z88.1 Allergy status to other antibiotic agents; Z88.8 Allergy status to other drugs, medicaments and biological substances; Z83.3 Family history of diabetes mellitus; Z81.8 Family history of other mental and behavioral disorders; Z82.49 Family history of ischemic heart disease and other diseases of the circulatory system; Z83.79 Family history of other diseases of the digestive system
CPT/HCPCS: 93005 ×2; 96361 ×2; 96375; 96365; 96372; 99285; 36415; 85379; 80053; 82550; 83605; 83735; 84100; 84484; 85025; 85610; 85730; 81001; 87040; 71046; 93971; G0378; J2270; J0696; J1650

== ENCOUNTER 2020-03-17 07:52 | Emergency (ER) | payer OTHER ==
[2020-03-17 08:23] LABS: Basophils % (A) 1 %; Eosinophils # (A) 0.2 k/uL (0-0.7); Eosinophils % (A) 2 %; HCT 38.1 % (34.0-46.0); HGB 12.7 gm/dL (11.4-16.0); Lymphocytes # (A) 3.3 k/uL (1.0-4.8); Lymphocytes % (A) 37 %; MCH 30.4 pg (25.0-35.0); MCHC 33.3 g/dL (31.0-37.0); MCV 91.4 fL (80.0-100.0); Mean Platelet Volume 8.8; Monocytes # (A) 0.4 k/uL (0-1.0); Monocytes % (A) 5 %; Neutrophils # (A) 4.9 k/uL (1.3-7.7); Neutrophils % (A) 55 %; Platelet Count 233 k/uL (150-450); RBC 4.17 m/uL (3.80-5.40); RDW 13.5 % (11.5-15.5); WBC 8.9 k/uL (3.8-10.6)
[2020-03-17 08:32] LABS: INR 0.9 (<1.2); Partial Thromboplastin Time 24.4 sec (22.0-30.0); Prothrombin Time 9.6 sec (9.0-12.0)
[2020-03-17 08:34] LABS: ALT 51 U/L (4-34); AST 34 U/L (14-36); African American GFR (CKD) >90 (>60 ml/min/1.73 sqM); Albumin 4.7 g/dL (3.5-5.0); Alkaline Phosphatase 56 U/L (38-126); Anion Gap 10 mmol/L; Blood Urea Nitrogen 14 mg/dL (7-17); Calcium 9.4 mg/dL (8.4-10.2); Carbon Dioxide 25 mmol/L (22-30); Chloride 104 mmol/L (98-107); Glucose 132 mg/dL (74-99); Magnesium 1.8 mg/dL (1.6-2.3); Non-African American GFR(CKD) >90 (>60 ml/min/1.73 sqM); Potassium 4.1 mmol/L (3.5-5.1); Sodium 139 mmol/L (137-145); Total Bilirubin 0.5 mg/dL (0.2-1.3); Total Protein 7.5 g/dL (6.3-8.2)
--- NOTE | 2020-03-17 08:45 | XR ---
EXAMINATION TYPE: XR chest 2V DATE OF EXAM: 03/17/2020 COMPARISON: 03/10/2020 INDICATION: Chest pain TECHNIQUE: Frontal and lateral views of the chest are obtained. FINDINGS: The heart size is normal. The pulmonary vasculature is normal. The lungs are clear. IMPRESSION: 1. No acute pulmonary process.
[2020-03-17] MEDS ORDERED: KETOROLAC 15 MG/ML 1 ML VIAL IVP STA (08:57)
[2020-03-17] MEDS ORDERED: ONDANSETRON 4 MG/2 ML VIAL IVP STA (08:57)
--- NOTE | 2020-03-17 09:00 | ED ---
Chest Pain HPI - General Chief Complaint: Chest Pain Stated Complaint: Chest pain Time Seen by Provider: 03/17/20 08:00 Source: patient, EMS, RN notes reviewed Mode of arrival: EMS Limitations: no limitations - History of Present Illness Initial Comments: This a 24-year-old female presents emergency Department chief chest pain. Patient states she woke up this morning with chest pain that hurts when she moves and takes deep breath. Patient states that she felt some pain radiating up her arm. Patient has no prior cardiac disease. Patient has been in the hospital recently for urinary tract infection and she was recently diagnosed with a superficial thrombophlebitis is currently taking aspirin. She states her symptoms left arm are resolving. Denies any resting shortness breath no exertional shortness of breath. No prior cardiac or lung disease. Patient offers no other complaints - Related Data Home Medications Medication Instructions Recorded Confirmed Albuterol Sulfate [Albuterol 1 - 2 puff INHALATION RT-Q6H PRN 02/29/20 03/10/20 Sulfate Hfa] Levothyroxine Sodium [Synthroid] 300 mcg PO HS 02/29/20 03/10/20 Prazosin [Minipress] 1 mg PO HS 02/29/20 03/10/20 Mirtazapine Rapid 15mg 15 mg MUCOUS MEM HS 03/04/20 03/10/20 Omeprazole 20 mg PO DAILY PRN 03/04/20 03/10/20 Previous Rx's Medication Instructions Recorded Ondansetron Odt [Zofran ODT] 4 mg PO Q8HR PRN #20 tab 03/07/20 traMADol HCL [Ultram] 50 mg PO Q6HR PRN 3 Days #12 tab 03/07/20 Aspirin 325 mg PO DAILY #30 tab 03/10/20 Allergies Allergy/AdvReac Type Severity Reaction Status Date / Time clarithromycin [From Biaxin] Allergy Dyspnea Verified 03/17/20 07:55 Penicillins Allergy Dyspnea Verified 03/17/20 07:55 Sulfa (Sulfonamide Allergy Dyspnea Verified 03/17/20 07:55 Antibiotics) tizanidine Allergy Anaphylaxis Verified 03/17/20 07:55 Review of Systems ROS Statement: Those systems with pertinent positive or pertinent negative responses have been documented in the HPI. ROS Other: All systems not noted in ROS Statement are negative. EKG Findings - EKG Comments: EKG Findings:: EKG performed at 8:00 normal sinus rhythm rate of 99 [place] 160 QRS 78 QT/QTC 364/467 - EKG Results: EKG: interpreted by RICHARD Past Medical History Past Medical History: Asthma, Diabetes Mellitus, Thyroid Disorder Additional Past Medical History / Comment(s): UTI diagnosed 02/29/20, pyelonephritis assoiated with UTI. History of Any Multi-Drug Resistant Organisms: ESBL Date of last positivie culture/infection: 02/29/2020 MDRO Source:: urine Past Surgical History: Adenoidectomy, Tonsillectomy Additional Past Anesthesia/Blood Transfusion Reaction / Comment(s): N/A Past Psychological History: Anxiety, Depression Smoking Status: Never smoker Past Alcohol Use History: Rare Past Drug Use History: Marijuana - Past Family History Mother Family Medical History: Diabetes Mellitus, Hyperlipidemia, Hypertension, Liver Disease Father Family Medical History: Hypertension General Exam Limitations: no limitations General appearance: alert, in no apparent distress Head exam: Present: atraumatic, normocephalic, normal inspection Eye exam: Present: normal appearance, PERRL, EOMI. Absent: scleral icterus, conjunctival injection, periorbital swelling ENT exam: Present: normal exam, normal oropharynx, mucous membranes moist, TM's normal bilaterally Neck exam: Present: normal inspection, full ROM. Absent: tenderness, meningismus, lymphadenopathy Respiratory exam: Present: normal lung sounds bilaterally, chest wall tenderness (Moderate anterior chest wall tenderness). Absent: respiratory distress, wheezes, rales, rhonchi, stridor Cardiovascular Exam: Present: regular rate, normal rhythm, normal heart sounds. Absent: systolic murmur, diastolic murmur, rubs, gallop, clicks GI/Abdominal exam: Present: soft, normal bowel sounds. Absent: distended, tenderness, guarding, rebound, rigid Course Vital Signs 03/17/20 07:55 Temperature 98.4 F Pulse Rate 90 Respiratory 18 Rate Blood Pressure 131/97 O2 Sat by Pulse 95 Oximetry Chest Pain MDM - MDM Prior records were reviewed, EKG labs chest x-ray reviewed with no acute findings. Patient has reproducible chest wall pain post likely underlying costochondritis/atypical chest pain. Patient will be discharged in stable condition return parameters were discussed. Disposition Clinical Impression: Chest wall pain, Atypical chest pain Disposition: HOME SELF-CARE Condition: Stable Instructions (If sedation given, give patient instructions): Costochondritis (ED), Chest Pain (ED) Additional Instructions: Please return to the Emergency Department if symptoms worsen or any other concerns. Is patient prescribed a controlled substance at d/c from ED?: No Referrals: Mary Restrepo MD [Primary Care Provider] - 1-2 days Time of Disposition: 09:00
[2020-03-17 09:48] VITALS: BP 123/85; PULSE 79; RESP 16; TEMP 97.8
== END 2020-03-17 09:49 | disposition home or self-care (01) ==
LOC: EC 07:52
DX: R07.89 Other chest pain (principal); J45.909 Unspecified asthma, uncomplicated; E07.9 Disorder of thyroid, unspecified; F41.9 Anxiety disorder, unspecified; F32.9 Major depressive disorder, single episode, unspecified; Z79.899 Other long term (current) drug therapy; Z79.890 Hormone replacement therapy; Z88.1 Allergy status to other antibiotic agents; Z88.0 Allergy status to penicillin; Z88.2 Allergy status to sulfonamides; Z88.8 Allergy status to other drugs, medicaments and biological substances
CPT/HCPCS: 36415; 93005; 80053; 83735; 84484; 85025; 85610; 85730; 71046; 99285; 96374; 96375; J2405; J1885

== ENCOUNTER 2020-05-28 20:23 | Emergency (ER) | payer OTHER ==
[2020-05-28 20:30] VITALS: RESP 18
--- NOTE | 2020-05-28 21:14 | XR ---
EXAMINATION TYPE: XR chest 2V DATE OF EXAM: 05/28/2020 COMPARISON: NONE HISTORY: 03/17/2020 TECHNIQUE: FINDINGS: Heart and mediastinum are normal. Lungs are clear. Diaphragm is normal. Bony thorax appears normal. IMPRESSION: Normal chest. No change.
--- NOTE | 2020-05-28 21:40 | ED ---
SOB HPI - General Chief Complaint: Shortness of Breath Stated Complaint: NIECY Time Seen by Provider: 05/28/20 20:32 Source: patient, EMS Mode of arrival: EMS Limitations: no limitations - History of Present Illness Initial Comments: Patient is a 25-year-old female, history of mild asthma, presenting to the emergency department via EMS with complaints of shortness of breath that started today. Patient states her mother recently tested positive for covid, she was tested yesterday but results are pending. Patient states she does have a slight cough, slight headache and feels short of breath. She does have a nebulizer machine at home and she did a treatment about 30 minutes prior to arrival. She denies any nausea, vomiting, abdominal pain, chest pain. She has been able to eat and drink some fluids today. She denies being this time. She has no further complaints at this time. Upon arrival to the ER her vital signs are normal. - Related Data Home Medications Medication Instructions Recorded Confirmed Albuterol Sulfate [Albuterol 1 - 2 puff INHALATION RT-Q6H PRN 02/29/20 05/28/20 Sulfate Hfa] Levothyroxine Sodium [Synthroid] 300 mcg PO HS 02/29/20 05/28/20 Omeprazole 20 mg PO DAILY PRN 03/04/20 05/28/20 Cetirizine HCl 10 mg PO HS 05/28/20 05/28/20 Mirtazapine [Remeron] 45 mg PO HS 05/28/20 05/28/20 Venlafaxine HCl ER [Effexor Xr] 75 mg PO HS 05/28/20 05/28/20 Allergies Allergy/AdvReac Type Severity Reaction Status Date / Time clarithromycin [From Biaxin] Allergy Dyspnea Verified 05/28/20 21:20 Penicillins Allergy Dyspnea Verified 05/28/20 21:20 Sulfa (Sulfonamide Allergy Dyspnea Verified 05/28/20 21:20 Antibiotics) tizanidine Allergy Anaphylaxis Verified 05/28/20 21:20 Review of Systems ROS Statement: Those systems with pertinent positive or pertinent negative responses have been documented in the HPI. ROS Other: All systems not noted in ROS Statement are negative. Past Medical History Past Medical History: Asthma, Diabetes Mellitus, Thyroid Disorder Additional Past Medical History / Comment(s): UTI diagnosed 02/29/20, pyelonephritis assoiated with UTI. History of Any Multi-Drug Resistant Organisms: ESBL Date of last positivie culture/infection: 02/29/2020 MDRO Source:: urine Past Surgical History: Adenoidectomy, Tonsillectomy Additional Past Anesthesia/Blood Transfusion Reaction / Comment(s): N/A Past Psychological History: Anxiety, Depression Smoking Status: Never smoker Past Alcohol Use History: Rare Past Drug Use History: Marijuana - Past Family History Mother Family Medical History: Diabetes Mellitus, Hyperlipidemia, Hypertension, Liver Disease Father Family Medical History: Hypertension General Exam - General Exam Comments Initial Comments: GENERAL: Patient is well-developed and well-nourished. Patient is nontoxic and in no acute distress. HEAD: Atraumatic, normocephalic. EYES: Pupils equal round and reactive to light, extraocular movements intact, sclera anicteric, conjunctiva are normal. Eyelids were unremarkable. ENT: TMs normal, nares patent, oropharynx clear without exudates. Moist mucous membranes. NECK: Normal range of motion, supple without lymphadenopathy or JVD. LUNGS: Unlabored respirations. Breath sounds clear to auscultation bilaterally and equal. No wheezes rales or rhonchi. HEART: Regular rate and rhythm without murmurs, rubs or gallops. ABDOMEN: Soft, nontender, normoactive bowel sounds. No guarding, no rebound. No masses appreciated. : Deferred MUSCULOSKELETAL: Normal extremities with adequate strength and normal range of motion, no pitting or edema. No clubbing or cyanosis. NEUROLOGICAL: Patient is alert and oriented x 3. Motor and sensory are also intact. Cranial nerves II through XII grossly intact. Symmetrical smile. Normal speech, normal gait. PSYCH: Normal mood, normal affect. SKIN: Warm, Dry, normal turgor, no rashes or lesions noted. Limitations: no limitations Course Vital Signs 05/28/20 05/28/20 20:25 21:58 Temperature 98.5 F 98 F Pulse Rate 91 70 Respiratory 18 18 Rate Blood Pressure 136/92 124/67 O2 Sat by Pulse 99 98 Oximetry Medical Decision Making - Medical Decision Making Patient is a 25-year-old female here with shortness of breath that started today, mild headache. Mother recently tested positive for Covid, her test is pending. Her vital signs are stable upon arrival. Her exam is unremarkable. Chest x-ray is normal, no acute process. Patient did a nebulizer treatment just prior to arrival. Her lungs remained clear. Her vital signs remained stable. Discussed these findings with the patient. Recommended continuing with her albuterol inhaler as needed for shortness of breath, she may also do nebulizer treatments. She is stable for discharge. Return parameters were discussed with the patient she verbalized understanding. Case discussed with Dr. Soto. Disposition Clinical Impression: Suspected COVID-19 virus infection, Cough, Shortness of breath Disposition: HOME SELF-CARE Condition: Stable Instructions (If sedation given, give patient instructions): Upper Respiratory Infection (ED) Additional Instructions: Please return to the Emergency Department if symptoms worsen or any other concerns. Continue with your albuterol inhaler and nebulizer as needed at home. May take Tylenol or Motrin for discomfort. Follow up with your PCP. Is patient prescribed a controlled substance at d/c from ED?: No Referrals: Mary Restrepo MD [Primary Care Provider] - 1-2 days
[2020-05-28 21:59] VITALS: BP 124/67; PULSE 70; TEMP 98
== END 2020-05-28 21:59 | disposition home or self-care (01) ==
LOC: EC 20:23
DX: R06.02 Shortness of breath (principal); R05 Cough; R51.9 Headache, unspecified; Z20.828 Contact with and (suspected) exposure to other viral communicable diseases; J45.909 Unspecified asthma, uncomplicated; F41.9 Anxiety disorder, unspecified; F32.9 Major depressive disorder, single episode, unspecified; E07.9 Disorder of thyroid, unspecified; Z79.890 Hormone replacement therapy; Z79.51 Long term (current) use of inhaled steroids; Z79.899 Other long term (current) drug therapy; Z88.1 Allergy status to other antibiotic agents; Z88.2 Allergy status to sulfonamides; Z88.8 Allergy status to other drugs, medicaments and biological substances
CPT/HCPCS: 71046; 99284

== ENCOUNTER 2020-10-10 01:41 | Emergency (ER) | payer OTHER ==
[2020-10-10 01:51] VITALS: RESP 18
[2020-10-10] MEDS ORDERED: METOCLOPRAMIDE 5 MG/ML 2 ML VIAL IVP STA (01:59)
[2020-10-10] MEDS ORDERED: ACETAMINOPHEN TAB 500 MG TAB PO STA (01:59)
[2020-10-10] MEDS ORDERED: diphenhydrAMINE 50 MG/ML 1 ML VIAL IVP STA (01:59)
[2020-10-10] MEDS ORDERED: KETOROLAC 15 MG/ML 1 ML VIAL IVP STA (01:59)
[2020-10-10 02:24] LABS: Amorphous Sediment,Urine Rare /hpf; Appearance,Urine Cloudy (Clear); Bilirubin,Urine Negative (Negative); Blood,Urine Negative (Negative); Color,Urine Colorless; Glucose,Urine (UA) Negative (Negative); Hyaline Casts,Urine 1 /lpf (0-2); Ketones,Urine Negative (Negative); Leukocyte Esterase,Urine Moderate (Negative); Nitrite,Urine Negative (Negative); PH, Urine 7.5 (5.0-8.0); Protein,Urine Negative (Negative); RBC,Urine 2 /hpf (0-5); Specific Gravity,Urine 1.006 (1.001-1.035); Squamous Epithelial Cell,Urine 1 /hpf (0-4); Urobilinogen,Urine <2.0 mg/dL (<2.0); WBC,Urine 14 /hpf (0-5)
[2020-10-10] MEDS ORDERED: NITROFURANTOIN MONOHYD/M-CRYST 100 MG CAP PO STA (03:00)
--- NOTE | 2020-10-10 03:01 | ED ---
Headache HPI - General Chief Complaint: Headache Stated Complaint: Headache Time Seen by Provider: 10/10/20 01:43 Mode of arrival: EMS Limitations: no limitations - History of Present Illness Initial Comments: 25 year-old female patient presents for evaluation of headache and left arm pain. States that she had a lumbar puncture yesterday to drain fluid for pseudotumor cerebri. States that today she woke with headache that gradually worsened. She states that she also developed some pain and a numb feeling to the left arm. She reports aching and pain to the puncture site. Denies any drainage. Denies any known fever or chills. Denies chance of . Patient denies any recent rash, cough, shortness of breath, chest pain, abdominal pain, nausea, vomiting, diarrhea, constipation, back pain, dizziness, weakness, hematuria, dysuria, urinary urgency, urinary frequency, or any other complaints. - Related Data Home Medications Medication Instructions Recorded Confirmed Albuterol Sulfate [Albuterol 1 - 2 puff INHALATION RT-Q6H PRN 02/29/20 05/28/20 Sulfate Hfa] Levothyroxine Sodium [Synthroid] 300 mcg PO HS 02/29/20 05/28/20 Omeprazole 20 mg PO DAILY PRN 03/04/20 05/28/20 Cetirizine HCl 10 mg PO HS 05/28/20 05/28/20 Mirtazapine [Remeron] 45 mg PO HS 05/28/20 05/28/20 Venlafaxine HCl ER [Effexor Xr] 75 mg PO HS 05/28/20 05/28/20 Previous Rx's Medication Instructions Recorded Nitrofurantoin Monohyd/M-Cryst 100 mg PO Q12HR #14 cap 10/10/20 [Macrobid] Allergies Allergy/AdvReac Type Severity Reaction Status Date / Time clarithromycin [From Biaxin] Allergy Dyspnea Verified 10/10/20 01:52 Penicillins Allergy Dyspnea Verified 10/10/20 01:52 Sulfa (Sulfonamide Allergy Dyspnea Verified 10/10/20 01:52 Antibiotics) tizanidine Allergy Anaphylaxis Verified 10/10/20 01:52 Review of Systems ROS Statement: Those systems with pertinent positive or pertinent negative responses have been documented in the HPI. ROS Other: All systems not noted in ROS Statement are negative. 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 Date of last positivie culture/infection: 02/29/2020 MDRO Source:: urine Past Surgical History: Adenoidectomy, Tonsillectomy Additional Past Anesthesia/Blood Transfusion Reaction / Comment(s): N/A Past Psychological History: Anxiety, Depression Smoking Status: Never smoker Past Alcohol Use History: Rare Past Drug Use History: Marijuana - Past Family History Mother Family Medical History: Diabetes Mellitus, Hyperlipidemia, Hypertension, Liver Disease Father Family Medical History: Hypertension General Exam Limitations: no limitations General appearance: alert, in no apparent distress, other (This is a well- developed, well-nourished adult female patient in no acute distress. Vital signs upon presentation are temperature 100.7F, pulse 112, respirations 18, blood pressure 118/95, pulse ox 100% on room air.) Eye exam: Present: normal appearance, PERRL, EOMI. Absent: scleral icterus, conjunctival injection, nystagmus, periorbital swelling ENT exam: Present: normal exam, normal oropharynx, mucous membranes moist Respiratory exam: Present: normal lung sounds bilaterally. Absent: respiratory distress, wheezes, rales, rhonchi, stridor Cardiovascular Exam: Present: regular rate, normal rhythm, normal heart sounds. Absent: systolic murmur, diastolic murmur, rubs, gallop, clicks GI/Abdominal exam: Present: soft, normal bowel sounds. Absent: distended, tenderness, guarding, rebound, rigid Neurological exam: Present: alert, oriented X3, CN II-XII intact Expanded Speech: Present: fluid speech Cranial nerves: EOM's Intact: Normal Motor strength exam: RUE: 5, LUE: 5, RLE: 5, LLE: 5 Psychiatric exam: Present: normal affect, normal mood Skin exam: Present: warm, dry, intact, normal color. Absent: rash Course Vital Signs 10/10/20 01:43 Temperature 100.7 F H Pulse Rate 112 H Respiratory 18 Rate Blood Pressure 118/95 O2 Sat by Pulse 100 Oximetry Medical Decision Making - Medical Decision Making 25-year-old female patient presents to the emergency department today for evaluation of headache left arm discomfort. Physical examination is unremarkable. She is neurologically intact both focal deficit. There is some tenderness surrounding the lumbar puncture site, no erythema, no swelling, no drainage. She did initially have temperature 100.7, this was rechecked was 98.0F. She was given IV with medication, upon reevaluation she states that she is feeling much better and does for comfortable being discharged home. Urinalysis did show evidence for mild UTI, she'll be treated with antibiotics [place] discharge follow-up with her primary care physician and neurologist as soon as possible. She is instructed to call the neurologist office in the morning for further instructions. Return parameters were discussed in detail. She verbalizes understanding and agrees with this plan. Case discussed with my attending Dr. Sherwood. - Lab Data Lab Results 10/10/20 10/10/20 10/10/20 Range/Units 02:02 02:02 02:02 Urine Color Colorless Urine Appearance Cloudy H (Clear) Urine pH 7.5 (5.0-8.0) Ur Specific [place] 1.006 (1.001-1.035) Urine Protein Negative (Negative) Urine Glucose (UA) Negative (Negative) Urine Ketones Negative (Negative) Urine Blood Negative (Negative) Urine Nitrite Negative (Negative) Urine Bilirubin Negative (Negative) Urine Urobilinogen <2.0 (<2.0) mg/dL Ur Leukocyte Esterase Moderate H (Negative) Urine RBC 2 (0-5) /hpf Urine WBC 14 H (0-5) /hpf Ur Squamous Epith Cells 1 (0-4) /hpf Amorphous Sediment Rare H (None) /hpf Hyaline Casts 1 (0-2) /lpf Urine HCG, Qual Not Detected (Not Detectd) Coronavirus (PCR) Not Detected (Not Detectd) Disposition Clinical Impression: Headache, UTI (urinary tract infection) Disposition: HOME SELF-CARE Condition: Good Instructions (If sedation given, give patient instructions): Urinary Tract Infection in Women (ED), Acute Headache (ED) Additional Instructions: Take medications as directed. Call your neurologist first thing in the morning for further instructions. Return to the emergency department for any new, worsening, or concerning symptoms. Prescriptions: Nitrofurantoin Monohyd/M-Cryst [Macrobid] 100 mg PO Q12HR #14 cap Is patient prescribed a controlled substance at d/c from ED?: No Referrals: Kareem Thornton MD [Primary Care Provider] - 1-2 days Time of Disposition: 03:01
[2020-10-10 03:27] VITALS: BP 102/68; PULSE 97; TEMP 98.1
== END 2020-10-10 03:25 | disposition home or self-care (01) ==
LOC: EC 01:41
DX: N39.0 Urinary tract infection, site not specified (principal); R51.9 Headache, unspecified; Z32.02 Encounter for pregnancy test, result negative; J45.909 Unspecified asthma, uncomplicated; E11.9 Type 2 diabetes mellitus without complications; E07.9 Disorder of thyroid, unspecified; F41.9 Anxiety disorder, unspecified; F32.9 Major depressive disorder, single episode, unspecified; Z79.890 Hormone replacement therapy; Z79.899 Other long term (current) drug therapy; Z88.0 Allergy status to penicillin; Z88.1 Allergy status to other antibiotic agents; Z88.2 Allergy status to sulfonamides; Z88.8 Allergy status to other drugs, medicaments and biological substances
CPT/HCPCS: 81001; 81025; 87086; 87635; 96374; 96375; 99284

== ENCOUNTER 2021-01-29 16:06 | Emergency (ER) | payer OTHER ==
[2021-01-29] MEDS ORDERED: ASPIRIN 81 MG PO STA (17:10)
[2021-01-29] MEDS ORDERED: SODIUM CHLORIDE 0.9% 1,000 ML IV STA (17:10)
[2021-01-29] MEDS ORDERED: FAMOTIDINE 20 MG/2 ML VIAL IV STA (17:11)
[2021-01-29] MEDS ORDERED: KETOROLAC 15 MG/ML 1 ML VIAL IVP STA (17:11)
[2021-01-29] MEDS ORDERED: diphenhydrAMINE 50 MG/ML 1 ML VIAL IVP STA (17:11)
[2021-01-29] MEDS ORDERED: ONDANSETRON 4 MG/2 ML VIAL IVP STA (17:11)
[2021-01-29 17:48] LABS: Basophils % (A) 0 %; Eosinophils # (A) 0.1 k/uL (0-0.7); Eosinophils % (A) 2 %; HCT 38.9 % (34.0-46.0); HGB 13.4 gm/dL (11.4-16.0); Lymphocytes # (A) 2.5 k/uL (1.0-4.8); Lymphocytes % (A) 35 %; MCH 33.1 pg (25.0-35.0); MCHC 34.5 g/dL (31.0-37.0); Monocytes # (A) 0.3 k/uL (0-1.0); Monocytes % (A) 4 %; Neutrophils # (A) 4.1 k/uL (1.3-7.7); Neutrophils % (A) 58 %; Platelet Count 205 k/uL (150-450); RBC 4.05 m/uL (3.80-5.40); RDW 14.8 % (11.5-15.5); WBC 7.2 k/uL (3.8-10.6)
--- NOTE | 2021-01-29 17:52 | ED ---
General Adult HPI - General Chief complaint: Chest Pain Stated complaint: Chest Pain Time Seen by Provider: 01/29/21 16:21 Source: patient, RN notes reviewed, old records reviewed Mode of arrival: ambulatory Limitations: no limitations - History of Present Illness Initial comments: .Patient is a 25-year-old female with past medical history remarkable for UTIs, asthma, diabetes, thyroid disorder who presents emergency Department complaining of nonspecific chest pain as well as associated abdominal discomfort with diarrhea. States the diarrhea has been nonbloody and has been ongoing for the last week or so. She states she is urinating frequently. She denies any vaginal bleeding, discharge and denies any hematuria or dysuria. She does endorse intermittent nausea with nonbilious emesis. She states that the abdominal discomfort is primarily in the epigastric region. She is also describing a chest pain that is a tightness located over the top of her chest bilaterally. She denies any history of hemoptysis, blood clots in herself or family members. She is not currently on hormonal therapy. She states she threw up last week but since has not had many episodes of emesis. She presents primarily for continued symptoms as well as chest pain that she is experiencing which is been present for approximately one day. She states is more or less constant. Denies any known palliative or provocative factors. It does not radiate. She denies any lightheadedness, dizziness, headaches, weakness. She has no other acute complaints at this time. Denies any fevers, chills, sick contacts. - Related Data Home Medications Medication Instructions Recorded Confirmed Albuterol Sulfate [Albuterol 1 - 2 puff INHALATION RT-Q6H PRN 02/29/20 01/29/21 Sulfate Hfa] Levothyroxine Sodium [Synthroid] 300 mcg PO DAILY 02/29/20 01/29/21 Levofloxacin [Levaquin] 500 mg PO DAILY 01/29/21 01/29/21 Pioglitazone [Actos] 15 mg PO DAILY 01/29/21 01/29/21 Venlafaxine HCl [Effexor XR] 150 mg PO HS 01/29/21 01/29/21 acetaZOLAMIDE [Diamox] 250 mg PO DAILY 01/29/21 01/29/21 metroNIDAZOLE [Flagyl] 500 mg PO BID 01/29/21 01/29/21 Previous Rx's Medication Instructions Recorded Famotidine [Pepcid] 20 mg PO DAILY 14 Days #14 tablet 01/29/21 Nitrofurantoin Monohyd/M-Cryst 100 mg PO Q12HR 5 Days #10 cap 01/29/21 [Macrobid] Ondansetron Odt [Zofran Odt] 4 mg PO Q8HR PRN 2 Days #6 tab 01/29/21 Allergies Allergy/AdvReac Type Severity Reaction Status Date / Time clarithromycin [From Biaxin] Allergy Dyspnea Verified 01/29/21 17:43 Penicillins Allergy Dyspnea Verified 01/29/21 17:43 Sulfa (Sulfonamide Allergy Dyspnea Verified 01/29/21 17:43 Antibiotics) tizanidine Allergy Anaphylaxis Verified 01/29/21 17:43 Review of Systems ROS Statement: Those systems with pertinent positive or pertinent negative responses have been documented in the HPI. Review of Systems: CONST: Denies fever EYES: Denies blurry vision ENT: Denies nasal congestion C/V: Endorses chest pain RESP: Denies shortness of breath GI: Endorses abdominal pain : Denies dysuria SKIN: Denies rash. MSK: Denies joint pain. NEURO: Denies headache ROS Other: All systems not noted in ROS Statement are negative. 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 HEAD: Normal with no signs of head trauma. EYES: PERRLA, EOMI, conjunctiva normal, no discharge. ENT: Hearing grossly intact, normal oropharynx. RESPIRATORY: Clear breath sounds bilaterally. No wheezes, rales, or rhonchi. C/V: Regular rate and rhythm. S1 and S2 auscultated, no edema, peripheral pulses 2+ and intact throughout ABD: Abd is soft, nontender, nondistended. There are no peritoneal signs. No rebound tenderness. EXT: Normal range of motion, no obvious deformity SKIN: No rashes or lesions observed on exposed skin. NEURO: Alert and oriented 4. No focal sensory or strength deficits. Limitations: no limitations Course Vital Signs 01/29/21 16:13 Temperature 97.7 F Pulse Rate 64 Respiratory 16 Rate Blood Pressure 116/81 O2 Sat by Pulse 100 Oximetry Medical Decision Making - Medical Decision Making Based on the patient's presentation and physical exam, I'm concerned for possible cardiac etiology for her one-day history of chest pain. Pulmonary embolism cannot be ruled out. Patient does have a low Wells score for pulmonary embolism therefore we will obtain a screening d-dimer exam. Troponin, basic l aboratory studies as well as abdominal labs also be obtained. Urinalysis was also be obtained. Patient will be symptomatically treated with aspirin, 1 L fluid bolus, IV Benadryl, famotidine, Toradol, Zofran. She was in agreement with this plan. Patiently kept on continuous cardiac monitoring while she is here in the department. Patient's EKG showed no signs of acute ischemia. Chest x-ray showed no acute cardio palmar process. Laboratory studies are remarkable for mildly elevated AST and ALT of 62 and 67. Troponin is negative. D-dimer is negative. Urinalysis is remarkable for positive leukocyte esterase as well as 19 wbc's. This is indicative of a possible UTI. She is not . Right upper quadrant ultrasound revealed some biliary sludge and hepatomegaly with steatosis but no other abnormality or cholecystitis. On reevaluation, patient is tolerating by mouth intake. She is feeling improved and states her chest pain is resolved. I do believe it is safer to be discharg ed home at this time. She was in agreement with the plan. I did discuss that she has what appears to be a UTI for which we will provide her with antibiotics. She does have a history of ESBL and highly resistant organisms, however since then she has had a UTI skin robin. We will start the patient on Macrobid at this time and send a urine culture for follow-up. Patient was in agreement this plan. I will provide the patient with a prescription for Macrobid, Zofran ODT, famotidine. I instructed the patient to follow up with their PCP in the next 3 days. . I explained that the patient should return to the emergency department if they experience any worsening symptoms. Strict return precautions were discussed with the patient. The patient expressed understanding of these inst ructions. I answered all questions that the patient had. The patient was discharged home in fair condition with their prescriptions and follow up information. - Lab Data Result diagrams: 01/29/21 17:37 01/29/21 17:37 Lab Results 01/29/21 01/29/21 01/29/21 Range/Units 17:37 17:37 17:37 WBC 7.2 (3.8-10.6) k/uL RBC 4.05 (3.80-5.40) m/uL Hgb 13.4 (11.4-16.0) gm/dL Hct 38.9 (34.0-46.0) % MCV 96.0 (80.0-100.0) fL MCH 33.1 (25.0-35.0) pg MCHC 34.5 (31.0-37.0) g/dL RDW 14.8 (11.5-15.5) % Plt Count 205 (150-450) k/uL MPV 9.0 Neutrophils % 58 % Lymphocytes % 35 % Monocytes % 4 % Eosinophils % 2 % Basophils % 0 % Neutrophils # 4.1 (1.3-7.7) k/uL Lymphocytes # 2.5 (1.0-4.8) k/uL Monocytes # 0.3 (0-1.0) k/uL Eosinophils # 0.1 (0-0.7) k/uL Basophils # 0.0 (0-0.2) k/uL PT 10.5 (9.0-12.0) sec INR 1.0 (<1.2) APTT 23.2 (22.0-30.0) sec D-Dimer 0.23 (<0.60) mg/L FEU Sodium (137-145) mmol/L Potassium (3.5-5.1) mmol/L Chloride (98-107) mmol/L Carbon Dioxide (22-30) mmol/L Anion Gap mmol/L BUN (7-17) mg/dL Creatinine (0.52-1.04) mg/dL Est GFR (CKD-EPI)AfAm (>60 ml/min/1.73 sqM) Est GFR (CKD-EPI)NonAf (>60 ml/min/1.73 sqM) Glucose (74-99) mg/dL Calcium (8.4-10.2) mg/dL Magnesium (1.6-2.3) mg/dL Total Bilirubin (0.2-1.3) mg/dL AST (14-36) U/L ALT (4-34) U/L Alkaline Phosphatase (38-126) U/L Troponin I (0.000-0.034) ng/mL Total Protein (6.3-8.2) g/dL Albumin (3.5-5.0) g/dL Lipase (23-300) U/L HCG, Qual Urine Color Yellow Urine Appearance Clear (Clear) Urine pH 7.5 (5.0-8.0) Ur Specific [place] 1.015 (1.001-1.035) Urine Protein Negative (Negative) Urine Glucose (UA) Negative (Negative) Urine Ketones Negative (Negative) Urine Blood Negative (Negative) Urine Nitrite Negative (Negative) Urine Bilirubin Negative (Negative) Urine Urobilinogen <2.0 (<2.0) mg/dL Ur Leukocyte Esterase Moderate H (Negative) Urine RBC 1 (0-5) /hpf Urine WBC 19 H (0-5) /hpf Ur Squamous Epith Cells 3 (0-4) /hpf Urine Mucus Rare H (None) /hpf 01/29/21 01/29/21 Range/Units 17:37 17:37 WBC (3.8-10.6) k/uL RBC (3.80-5.40) m/uL Hgb (11.4-16.0) gm/dL Hct (34.0-46.0) % MCV (80.0-100.0) fL MCH (25.0-35.0) pg MCHC (31.0-37.0) g/dL RDW (11.5-15.5) % Plt Count (150-450) k/uL MPV Neutrophils % % Lymphocytes % % Monocytes % % Eosinophils % % Basophils % % Neutrophils # (1.3-7.7) k/uL Lymphocytes # (1.0-4.8) k/uL Monocytes # (0-1.0) k/uL Eosinophils # (0-0.7) k/uL Basophils # (0-0.2) k/uL PT (9.0-12.0) sec INR (<1.2) APTT (22.0-30.0) sec D-Dimer (<0.60) mg/L FEU Sodium 139 (137-145) mmol/L Potassium 3.9 (3.5-5.1) mmol/L Chloride 107 (98-107) mmol/L Carbon Dioxide 22 (22-30) mmol/L Anion Gap 10 mmol/L BUN 11 (7-17) mg/dL Creatinine 0.77 (0.52-1.04) mg/dL Est GFR (CKD-EPI)AfAm >90 (>60 ml/min/1.73 sqM) Est GFR (CKD-EPI)NonAf >90 (>60 ml/min/1.73 sqM) Glucose 109 H (74-99) mg/dL Calcium 9.9 (8.4-10.2) mg/dL Magnesium 1.6 (1.6-2.3) mg/dL Total Bilirubin 0.6 (0.2-1.3) mg/dL AST 62 H (14-36) U/L ALT 67 H (4-34) U/L Alkaline Phosphatase 49 (38-126) U/L Troponin I <0.012 (0.000-0.034) ng/mL Total Protein 7.4 (6.3-8.2) g/dL Albumin 4.7 (3.5-5.0) g/dL Lipase 286 (23-300) U/L HCG, Qual Not Detected Urine Color Urine Appearance (Clear) Urine pH (5.0-8.0) Ur Specific [place] (1.001-1.035) Urine Protein (Negative) Urine Glucose (UA) (Negative) Urine Ketones (Negative) Urine Blood (Negative) Urine Nitrite (Negative) Urine Bilirubin (Negative) Urine Urobilinogen (<2.0) mg/dL Ur Leukocyte Esterase (Negative) Urine RBC (0-5) /hpf Urine WBC (0-5) /hpf Ur Squamous Epith Cells (0-4) /hpf Urine Mucus (None) /hpf - EKG Data -: EKG Interpreted by Me EKG Comments: 12-lead Electrocardiogram Interpretation Note EKG was reviewed and interpreted by myself. 12-lead ECG performed at 1643 is interpreted by me as revealing normal sinus rhythm at a rate of 78 beats per minute. [place] is normal. AR interval is 160 ms, QRS duration is 84 seconds, QTC is 428 ms.. There were no ST or T wave abnormalities to suggest myocardial ischemia or injury. R wave progression across the precordium was satisfactory. By my interpretation this EKG is non-diagnostic for acute ischemia. No change when compared to prior EKGs. Disposition Clinical Impression: UTI (urinary tract infection), Chest pain of unknown etiology, Diarrhea Disposition: HOME SELF-CARE Condition: Fair Instructions (If sedation given, give patient instructions): Urinary Tract Infection in Women (ED) Prescriptions: Nitrofurantoin Monohyd/M-Cryst [Macrobid] 100 mg PO Q12HR 5 Days #10 cap Famotidine [Pepcid] 20 mg PO DAILY 14 Days #14 tablet Ondansetron Odt [Zofran Odt] 4 mg PO Q8HR PRN 2 Days #6 tab PRN Reason: Nausea Is patient prescribed a controlled substance at d/c from ED?: No Referrals: Mary Restrepo MD [Primary Care Provider] - 1-2 days
[2021-01-29 17:57] LABS: ALT 67 U/L (4-34); AST 62 U/L (14-36); African American GFR (CKD) >90 (>60 ml/min/1.73 sqM); Albumin 4.7 g/dL (3.5-5.0); Alkaline Phosphatase 49 U/L (38-126); Anion Gap 10 mmol/L; Blood Urea Nitrogen 11 mg/dL (7-17); Calcium 9.9 mg/dL (8.4-10.2); Carbon Dioxide 22 mmol/L (22-30); Chloride 107 mmol/L (98-107); Glucose 109 mg/dL (74-99); Lipase 286 U/L (23-300); Magnesium 1.6 mg/dL (1.6-2.3); Non-African American GFR(CKD) >90 (>60 ml/min/1.73 sqM); Potassium 3.9 mmol/L (3.5-5.1); Sodium 139 mmol/L (137-145); Total Bilirubin 0.6 mg/dL (0.2-1.3); Total Protein 7.4 g/dL (6.3-8.2)
[2021-01-29 18:07] LABS: Partial Thromboplastin Time 23.2 sec (22.0-30.0); Prothrombin Time 10.5 sec (9.0-12.0)
--- NOTE | 2021-01-29 18:39 | XR ---
EXAMINATION TYPE: XR chest 2V DATE OF EXAM: 01/29/2021 COMPARISON: 05/28/2020. HISTORY: Chest pain. TECHNIQUE: Frontal and lateral views of the chest are obtained. FINDINGS: There is no focal air space opacity, pleural effusion, or pneumothorax seen. The cardiac silhouette size is within normal limits. The osseous structures are intact. IMPRESSION: No acute cardiopulmonary process.
[2021-01-29 18:59] LABS: HCG,Qualitative Serum Not Detected
[2021-01-29 19:08] LABS: Appearance,Urine Clear (Clear); Bilirubin,Urine Negative (Negative); Blood,Urine Negative (Negative); Color,Urine Yellow; Glucose,Urine (UA) Negative (Negative); Ketones,Urine Negative (Negative); Leukocyte Esterase,Urine Moderate (Negative); Mucus,Urine Rare /hpf; Nitrite,Urine Negative (Negative); PH, Urine 7.5 (5.0-8.0); Protein,Urine Negative (Negative); RBC,Urine 1 /hpf (0-5); Specific Gravity,Urine 1.015 (1.001-1.035); Squamous Epithelial Cell,Urine 3 /hpf (0-4); Urobilinogen,Urine <2.0 mg/dL (<2.0); WBC,Urine 19 /hpf (0-5)
--- NOTE | 2021-01-29 19:35 | US ---
EXAMINATION TYPE: US gallbladder DATE OF EXAM: 01/29/2021 COMPARISON: CT, US kidneys CLINICAL HISTORY: RUQ pain. RUQ pain. EXAM MEASUREMENTS: Liver Length: 20.26 cm Gallbladder Wall: 0.21 cm CBD: 0.42 cm Right Kidney: 11.8 x 6.2 x 4.5 cm Limited due to gas and patient body habitus. Pancreas: Limited visibility. Liver: Enlarged and coarse in echotexture. Hyperechoic. Gallbladder: Probable internal echoes seen, may relate to biliary sludge: 4.3 x 2.0 x 0.8 cm. Fold s een. Evidence for sonographic Bland's sign: No CBD: Limited, portions seen appear to be wnl. Right Kidney: No hydronephrosis or masses seen IMPRESSION: Possible biliary sludge. Hepatomegaly with steatosis. No sonographic evidence of acute abnormality or cholecystitis.
[2021-01-29] MEDS ORDERED: NITROFURANTOIN MONOHYD/M-CRYST 100 MG CAP PO STA (20:24)
[2021-01-29 21:21] VITALS: BP 117/74; PULSE 75; RESP 18; TEMP 98.1
== END 2021-01-29 21:00 | disposition home or self-care (01) ==
LOC: EC 16:06
DX: N39.0 Urinary tract infection, site not specified (principal); R07.89 Other chest pain; R19.7 Diarrhea, unspecified; J45.909 Unspecified asthma, uncomplicated; E11.9 Type 2 diabetes mellitus without complications; E07.9 Disorder of thyroid, unspecified; Z88.0 Allergy status to penicillin; Z88.2 Allergy status to sulfonamides; Z88.1 Allergy status to other antibiotic agents; Z88.8 Allergy status to other drugs, medicaments and biological substances; Z79.890 Hormone replacement therapy; Z79.84 Long term (current) use of oral hypoglycemic drugs
CPT/HCPCS: 36415; 93005; 85379; 80053; 83690; 83735; 84484; 85025; 85610; 85730; 81001; 84703; 87086; 71046; 76705; 99285; 96374; 96375; 96361; J1200; J2405; J1885

== ENCOUNTER 2021-02-05 12:28 | Emergency (ER) | payer OTHER ==
[2021-02-05 13:25] VITALS: RESP 18
[2021-02-05 14:24] LABS: Appearance,Urine Clear (Clear); Bilirubin,Urine Negative (Negative); Blood,Urine Negative (Negative); Color,Urine Yellow; Glucose,Urine (UA) Negative (Negative); Ketones,Urine Negative (Negative); Leukocyte Esterase,Urine Negative (Negative); Nitrite,Urine Negative (Negative); Protein,Urine Negative (Negative); Specific Gravity,Urine 1.014 (1.001-1.035); Urobilinogen,Urine <2.0 mg/dL (<2.0)
[2021-02-05] MEDS ORDERED: cefTRIAXone 1,000 MG VIAL (IM USE) IM STA (15:00)
--- NOTE | 2021-02-05 15:05 | ED ---
Female Urogenital HPI - General Chief complaint: Urogenital Stated complaint: revisit - UTI Time Seen by Provider: 02/05/21 14:29 Source: patient Mode of arrival: ambulatory Limitations: no limitations - History of Present Illness Initial comments: 25-year-old male presents to emergency department with a chief complaint of a UTI. Patient reports she was diagnosed with a UTI about one week ago and was discharged with Bactrim. States this medication does not work well for her periods states now she is also having some pain in the right flank region. Patient reports dysuria, increased urgency or frequency. However, she denies any hematuria, hematochezia or melena. Denies any vaginal symptoms. Does not have any concerns for at this time. Does report having some nausea but denies any vomiting or diarrhea. Denies any fevers or chills. - Related Data Home Medications Medication Instructions Recorded Confirmed Albuterol Sulfate [Albuterol 1 - 2 puff INHALATION RT-Q6H PRN 02/29/20 01/29/21 Sulfate Hfa] Levothyroxine Sodium [Synthroid] 300 mcg PO DAILY 02/29/20 01/29/21 Levofloxacin [Levaquin] 500 mg PO DAILY 01/29/21 01/29/21 Pioglitazone [Actos] 15 mg PO DAILY 01/29/21 01/29/21 Venlafaxine HCl [Effexor XR] 150 mg PO HS 01/29/21 01/29/21 acetaZOLAMIDE [Diamox] 250 mg PO DAILY 01/29/21 01/29/21 metroNIDAZOLE [Flagyl] 500 mg PO BID 01/29/21 01/29/21 Previous Rx's Medication Instructions Recorded Famotidine [Pepcid] 20 mg PO DAILY 14 Days #14 tablet 01/29/21 Nitrofurantoin Monohyd/M-Cryst 100 mg PO Q12HR 5 Days #10 cap 01/29/21 [Macrobid] Ondansetron Odt [Zofran Odt] 4 mg PO Q8HR PRN 2 Days #6 tab 01/29/21 Cephalexin [Keflex] 500 mg PO Q6HR #40 cap 02/05/21 Allergies Allergy/AdvReac Type Severity Reaction Status Date / Time clarithromycin [From Biaxin] Allergy Dyspnea Verified 02/05/21 13:25 Penicillins Allergy Dyspnea Verified 02/05/21 13:25 Sulfa (Sulfonamide Allergy Dyspnea Verified 02/05/21 13:25 Antibiotics) tizanidine Allergy Anaphylaxis Verified 02/05/21 13:25 Review of Systems ROS Statement: Those systems with pertinent positive or pertinent negative responses have been documented in the HPI. ROS Other: All systems not noted in ROS Statement are negative. 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 Date of last positivie culture/infection: 02/29/2020 MDRO Source:: urine Past Surgical History: Adenoidectomy, Tonsillectomy Additional Past Anesthesia/Blood Transfusion Reaction / Comment(s): N/A Past Psychological History: Anxiety, Depression Smoking Status: Never smoker Past Alcohol Use History: Rare Past Drug Use History: None Reported - Past Family History Mother Family Medical History: Diabetes Mellitus, Hyperlipidemia, Hypertension, Liver Disease Father Family Medical History: Hypertension General Exam Limitations: no limitations General appearance: alert, in no apparent distress, obese Head exam: Present: atraumatic, normocephalic, normal inspection Eye exam: Present: normal appearance Pupils: Present: normal accommodation ENT exam: Present: normal exam, normal oropharynx, mucous membranes moist Neck exam: Present: normal inspection, full ROM. Absent: tenderness Respiratory exam: Present: normal lung sounds bilaterally. Absent: respiratory distress, wheezes Cardiovascular Exam: Present: regular rate, normal rhythm, normal heart sounds. Absent: systolic murmur GI/Abdominal exam: Present: soft. Absent: distended, tenderness, guarding, rebound Extremities exam: Present: normal inspection, full ROM Back exam: Present: normal inspection, full ROM, tenderness, CVA tenderness (R) Neurological exam: Present: alert, oriented X3 Psychiatric exam: Present: normal affect, normal mood Skin exam: Present: warm, dry, intact, normal color Course Vital Signs 02/05/21 02/05/21 13:22 15:29 Temperature 98.3 F 98.9 F Pulse Rate 99 97 Respiratory 18 18 Rate Blood Pressure 148/90 146/89 O2 Sat by Pulse 96 97 Oximetry Medical Decision Making - Medical Decision Making 25-year-old female presents to the emergency department with a chief complaint of UTI. On Physical examination, she does have mild right CVA tenderness. No abdominal tenderness. Medical records reviewed which reveal most recent urine culture was negative for UTI. However, she continues to have symptoms. I will switch the antibiotic to Keflex. She does have ALLERGY to sulfa. I will also give her 1 g Rocephin. Negative . There is no vomiting. Patient advised to return to emergency department if her symptoms worsen. - Lab Data Lab Results 02/05/21 02/05/21 Range/Units 13:49 13:49 Urine Color Yellow Urine Appearance Clear (Clear) Urine pH 7.0 (5.0-8.0) Ur Specific [place] 1.014 (1.001-1.035) Urine Protein Negative (Negative) Urine Glucose (UA) Negative (Negative) Urine Ketones Negative (Negative) Urine Blood Negative (Negative) Urine Nitrite Negative (Negative) Urine Bilirubin Negative (Negative) Urine Urobilinogen <2.0 (<2.0) mg/dL Ur Leukocyte Esterase Negative (Negative) Urine HCG, Qual Not Detected (Not Detectd) Disposition Clinical Impression: Dysuria Disposition: HOME SELF-CARE Condition: Stable Instructions (If sedation given, give patient instructions): Urinary Tract Infection in Women (ED) Additional Instructions: Please return to the Emergency Department if symptoms worsen or any other concerns. Prescriptions: Cephalexin [Keflex] 500 mg PO Q6HR #40 cap Is patient prescribed a controlled substance at d/c from ED?: No Referrals: Mary Restrepo MD [Primary Care Provider] - 1-2 days Time of Disposition: 15:05
[2021-02-05 15:30] VITALS: BP 146/89; PULSE 97; TEMP 98.9
== END 2021-02-05 15:30 | disposition home or self-care (01) ==
LOC: EC 12:28
DX: R30.0 Dysuria (principal); R11.0 Nausea; R10.9 Unspecified abdominal pain; J45.909 Unspecified asthma, uncomplicated; E11.9 Type 2 diabetes mellitus without complications; E07.9 Disorder of thyroid, unspecified; Z79.890 Hormone replacement therapy; Z88.0 Allergy status to penicillin; Z88.2 Allergy status to sulfonamides; Z88.1 Allergy status to other antibiotic agents
CPT/HCPCS: 99284; 96372; 81003; 81025; J0696

== ENCOUNTER 2021-10-30 15:24 | Emergency (ER) | payer OTHER ==
[2021-10-30 16:56] VITALS: BP 123/78; PULSE 70; RESP 16; TEMP 98.1
--- NOTE | 2021-10-30 20:07 | ED ---
General Adult HPI - General Chief complaint: Head Injury Stated complaint: possible concussion Time Seen by Provider: 10/30/21 20:00 Source: patient, RN notes reviewed, old records reviewed Mode of arrival: ambulatory Limitations: no limitations - History of Present Illness Initial comments: 20 sexual female presents for evaluation of head injury occurred approximately 24 hours prior to arrival. Patient was at work, she states a box of lettuce fell onto her head. She states she knew the past hour she felt quite dizzy. She had an immediate headache. She was seen by urgent care today for evaluation and was sent to the emergency department for further evaluation and treatment. Patient denies current . She denies anticoagulation. She does have persistent symptoms. - Related Data Home Medications Medication Instructions Recorded Confirmed Levothyroxine Sodium [Synthroid] 300 mcg PO DAILY 02/29/20 10/30/21 acetaZOLAMIDE [Diamox] 250 mg PO DAILY 01/29/21 10/30/21 Amitriptyline HCl [Elavil] 10 mg PO DAILY 10/30/21 10/30/21 FLUoxetine HCL [PROzac] 20 mg PO DAILY 10/30/21 10/30/21 Topiramate [Topamax] 50 mg PO HS 10/30/21 10/30/21 Allergies Allergy/AdvReac Type Severity Reaction Status Date / Time clarithromycin [From Biaxin] Allergy Dyspnea Verified 10/30/21 20:28 Penicillins Allergy Unknown Verified 10/30/21 20:28 Childhood Sulfa (Sulfonamide Allergy Dyspnea Verified 10/30/21 20:28 Antibiotics) tizanidine Allergy Anaphylaxis Verified 10/30/21 20:28 Review of Systems ROS Statement: Those systems with pertinent positive or pertinent negative responses have been documented in the HPI. ROS Other: All systems not noted in ROS Statement are negative. 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 Date of last positivie culture/infection: 02/29/2020 MDRO Source:: urine Past Surgical History: Adenoidectomy, Tonsillectomy Additional Past Anesthesia/Blood Transfusion Reaction / Comment(s): N/A Past Psychological History: Anxiety, Depression Smoking Status: Never smoker Past Alcohol Use History: Rare Past Drug Use History: None Reported - Past Family History Mother Family Medical History: Diabetes Mellitus, Hyperlipidemia, Hypertension, Liver Disease Father Family Medical History: Hypertension General Exam Limitations: no limitations General appearance: alert, in no apparent distress Head exam: Present: atraumatic, normocephalic Eye exam: Present: normal appearance ENT exam: Present: normal exam Neck exam: Present: normal inspection. Absent: tenderness, meningismus Respiratory exam: Present: normal lung sounds bilaterally. Absent: respiratory distress, wheezes Cardiovascular Exam: Present: regular rate, normal rhythm GI/Abdominal exam: Present: soft. Absent: distended, tenderness, guarding Extremities exam: Present: normal inspection, normal capillary refill. Absent: pedal edema Neurological exam: Present: alert, oriented X3, CN II-XII intact. Absent: motor sensory deficit Psychiatric exam: Present: normal affect, normal mood Skin exam: Present: warm, dry, intact. Absent: cyanosis, diaphoretic Course Vital Signs 10/30/21 16:53 Temperature 98.1 F Pulse Rate 70 Respiratory 16 Rate Blood Pressure 123/78 O2 Sat by Pulse 95 Oximetry Medical Decision Making - Medical Decision Making Head CT performed, negative for intracranial hemorrhage or mass effect. Patient does have symptoms consistent with concussion. Disposition Clinical Impression: Concussion without loss of consciousness Disposition: HOME SELF-CARE Condition: Good Instructions (If sedation given, give patient instructions): Concussion (ED) Is patient prescribed a controlled substance at d/c from ED?: No Referrals: Mary Restrepo MD [Medical Doctor] - 1-2 days Time of Disposition: 20:35
--- NOTE | 2021-10-30 20:32 | CT ---
EXAMINATION TYPE: CT brain wo con CT DLP: 1039.4 mGycm, Automated exposure control for dose reduction was used. DATE OF EXAM: 10/30/2021 8:20 PM COMPARISON: None. CLINICAL INDICATION:Female, 26 years old with history of head injury, head injury TECHNIQUE: Brain: Multiple axial CT images of the brain were obtained without IV contrast. FINDINGS: Brain: Extra-axial spaces: No abnormal extra-axial fluid collections. Ventricular system: Within normal limits Cerebral parenchyma: No acute intraparenchymal hemorrhage or mass effect. The novak-white junction is well differentiated. Cerebellum: Unremarkable. Mass effect: No evidence of midline shift. Intracranial vasculature: unremarkable Soft tissues: Normal. Calvarium/osseous structures: No depressed skull fracture. Paranasal sinuses and mastoid air cells: Mild scattered paranasal sinus disease. Visualized orbits: Orbital contents are intact. IMPRESSION: No acute intracranial process.
== END 2021-10-30 21:27 | disposition home or self-care (01) ==
LOC: EC 15:24
DX: S06.0X0A Concussion without loss of consciousness, initial encounter (principal); J45.909 Unspecified asthma, uncomplicated; E11.9 Type 2 diabetes mellitus without complications; E07.9 Disorder of thyroid, unspecified; Z79.1 Long term (current) use of non-steroidal anti-inflammatories (NSAID); Z88.0 Allergy status to penicillin; Z88.2 Allergy status to sulfonamides; Z88.8 Allergy status to other drugs, medicaments and biological substances
CPT/HCPCS: 70450

== ENCOUNTER → 2021-11-02 | Outpatient (CLI) | payer OTHER ==
--- NOTE | 2021-11-02 16:20 | XR ---
EXAMINATION TYPE: XR cervical spine limited DATE OF EXAM: 11/02/2021 COMPARISON: NONE HISTORY: Neck pain TECHNIQUE: 3 views FINDINGS: Cervical vertebra have normal alignment. Posterior elements are intact. No compression frac ture. Disc spaces are fairly normal. Atlantoaxial facet joint is normal. IMPRESSION: Negative cervical spine exam. No fracture.
== END | disposition home or self-care (01) ==
LOC: RADXRMAIN 15:45
PROVIDERS: ATTEND Emergency Medicine
DX: M54.2 Cervicalgia (principal)
CPT/HCPCS: 72040

== ENCOUNTER → 2021-11-21 | Outpatient (CLI) | payer OTHER ==
[2021-11-21 18:26] LABS: Basophils # (A) 0.05 X 10*3/uL (0.00-0.10); Basophils % (A) 0.7 %; Eosinophils # (A) 0.15 X 10*3/uL (0.04-0.35); Eosinophils % (A) 2.1 %; HCT 38.3 % (37.2-46.3); HGB 12.4 g/dL (12.0-15.0); Immature Grans, Automated 0.4 %; Lymphocytes # (A) 2.27 X 10*3/uL (0.90-5.00); Lymphocytes % (A) 31.2 %; MCH 31.2 pg (27.0-32.0); MCHC 32.4 g/dL (32.0-37.0); MCV 96.5 fL (80.0-97.0); Monocytes # (A) 0.42 X 10*3/uL (0.20-1.00); Monocytes % (A) 5.8 %; NRBC Per 100 WBC 0 /100 WBCS (0.0-0.0); Neutrophils # (A) 4.36 X 10*3/uL (1.80-7.70); Neutrophils % (A) 59.8 %; Platelet Count 205 X 10*3/uL (140-440); RBC 3.97 X 10*6/uL (4.10-5.20); WBC 7.28 X 10*3/uL (4.50-10.00)
== END | disposition home or self-care (01) ==
LOC: LABPAT 12:45
PROVIDERS: ATTEND Obstetrics & Gynecology Obstetrics
DX: Z01.812 Encounter for preprocedural laboratory examination (principal); T83.39XA Other mechanical complication of intrauterine contraceptive device, initial encounter; Y79.2 Prosthetic and other implants, materials and accessory orthopedic devices associated with adverse incidents
CPT/HCPCS: 84132; 85025

== ENCOUNTER 2021-11-24 07:01 | Day surgery (SDC) | payer OTHER ==
[~2021-11-24 07:01] MED LIST: DEXAMETHASONE SOD PHOSPHATE 4 MG/ML 1 ML VIAL IV ONE; HYDROmorphone 0.5 MG/0.5 ML SYRINGE IVP PRN; LACTATED RINGERS 1,000 ML IV SCH; LIDOCAINE 1% (10MG/ML) FOR IV START INTRADERMA PRN; METOCLOPRAMIDE 5 MG/ML 2 ML VIAL IVP PRN; ONDANSETRON 4 MG/2 ML VIAL IVP ONE; Pre Op ABX Message 1 EACH MISC MISCELLANE ONE; SCOPOLAMINE 1 MG/72 HR PATCH TRANSDERM ONE
[2021-11-24] MEDS ORDERED: LIDOCAINE 2% INJ 20 MG/ML (2 ML VIAL) ONE (08:30)
[2021-11-24] MEDS ORDERED: PROPOFOL 10 MG/ML 20 ML VIAL IV ONE (08:30)
[2021-11-24] MEDS ORDERED: MIDAZOLAM 2 MG/2 ML VIAL ONE (08:30)
[2021-11-24] MEDS ORDERED: fentaNYL (PF) 50 MCG/ML 2 ML AMP ONE (08:30)
--- NOTE | 2021-11-24 09:03 | P.HPOB ---
History of Present Illness H&P Date: 11/24/21 Chief Complaint: Retained IUD, dysmenorrhea This is a 26-year-old non patient that presents for IUD removal secondary to retained IUD. Patient had an IUD placed 3 years ago at an outside facility and requested removal. Patient was seen in the office IUD strings were not visualized. Ultrasound was performed and IUD was appreciated within the endometrial cavity. Patient has noted dysmenorrhea and desires OCP for cycle control. 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) History of Any Multi-Drug Resistant Organisms: ESBL Date of last positivie culture/infection: 02/29/2020 MDRO Source:: urine Past Surgical History: Adenoidectomy, Tonsillectomy Additional Past Surgical History / Comment(s): colonscopy, biopsy of liver 2020, EGD 2018, laparoscopy Past Anesthesia/Blood Transfusion Reactions: No Reported Reaction Additional Past Anesthesia/Blood Transfusion Reaction / Comment(s): N/A Smoking Status: Never smoker - Past Family History Mother Family Medical History: Diabetes Mellitus, Hyperlipidemia, Hypertension, Liver Disease Father Family Medical History: Hypertension Medications and Allergies Home Medications Medication Instructions Recorded Confirmed Type Levothyroxine Sodium [Synthroid] 300 mcg PO DAILY 02/29/20 11/19/21 History acetaZOLAMIDE [Diamox] 250 mg PO DAILY 01/29/21 11/19/21 History Amitriptyline HCl [Elavil] 10 mg PO DAILY 10/30/21 11/19/21 History FLUoxetine HCL [PROzac] 20 mg PO DAILY 10/30/21 11/19/21 History Topiramate [Topamax] 50 mg PO HS 10/30/21 11/19/21 History Allergies Allergy/AdvReac Type Severity Reaction Status Date / Time clarithromycin [From Biaxin] Allergy Dyspnea Verified 10/30/21 20:28 Penicillins Allergy Unknown Verified 05/12/22 20:28 Childhood Sulfa (Sulfonamide Allergy Dyspnea Verified 10/30/21 20:28 Antibiotics) tizanidine Allergy Anaphylaxis Verified 11/19/21 15:37 Exam Osteopathic Statement: *. No significant issues noted on an osteopathic structural exam other than those noted in the History and Physical/Consult. 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 Uterus is normal in size with no adnexal masses appreciated. Assessment and Plan (1) Retained intrauterine contraceptive device (IUD) Current Visit: Yes Status: Acute Code(s): T83.39XA - MECH COMPL OF INTRAUTERINE CONTRACEPTIVE DEVICE, INIT ENCNTR SNOMED Code(s): 272761751 (2) Dysmenorrhea Current Visit: Yes Status: Acute Code(s): N94.6 - DYSMENORRHEA, UNSPECIFIED SNOMED Code(s): 474876997 Plan: 26-year-old female that presents for hysteroscopic removal of IUD as it was unable to be removed in the office secondary to the strings not being visualized. Patient is counseled on need for surgery for removal and she agrees. Risks of surgery are reviewed and questions are answered. Patient states understanding and will proceed to the operating suite.
--- NOTE | 2021-11-24 09:05 | P.OP ---
Date of Procedure: 11/24/21 Preoperative Diagnosis: Retained IUD, dysmenorrhea Postoperative Diagnosis: Same plus proliferative endometrium Procedure(s) Performed: Hysteroscopy, removal of IUD, dilation and curettage Anesthesia: MAC Surgeon: Maggie Pool Estimated Blood Loss (ml): 5 IV fluids (ml): 400 Urine output (ml): 50 Pathology: other (Endometrial curettings) Condition: stable Disposition: PACU Indications for Procedure: Desire for IUD removal, known PCO S, dysmenorrhea Operative Findings: Proliferative endometrium with IUD in place Description of Procedure: Patient was taken back to the operating suite where general anesthesia was obtained without difficulty by the anesthesia department. She was prepped and draped in normal sterile fashion in the dorsal lithotomy position. A red rubber catheter was used to drain the bladder clear yellow urine. Weighted speculum was placed in the posterior vaginal vault the anterior lip the cervix was visualized and grasped with single-tooth tenaculum. The endocervical canal was then dilated, hysteroscope was placed through the cervix toward the endometrial cavity the IUD was noted to be in place cervix high in the cervical canal. A polyp forcep was then used to grasp the strings and remove the IUD intact. A gentle curettage was then performed and this tissue specimen was sent to pathology for analysis. The single-tooth tenaculum was taken off of the anterior lip of the cervix hemostasis was appreciated. All counts were noted to be correct 2 at the procedure. Patient did tolerate procedure well and was taken the recovery room awake in stable condition.
[2021-11-24 09:09] VITALS: TEMP 98
[2021-11-24] MEDS ORDERED: HYDROmorphone 0.5 MG/0.5 ML SYRINGE IVP ONE (09:24)
[2021-11-24 10:19] VITALS: BP 121/75; PULSE 64; RESP 18
== END 2021-11-24 10:21 | disposition home or self-care (01) ==
LOC: OR 07:01
PROVIDERS: ATTEND Obstetrics & Gynecology Obstetrics
DX: N94.6 Dysmenorrhea, unspecified (principal); E28.2 Polycystic ovarian syndrome; Z30.432 Encounter for removal of intrauterine contraceptive device; J45.909 Unspecified asthma, uncomplicated; E07.9 Disorder of thyroid, unspecified; G93.2 Benign intracranial hypertension; Z79.890 Hormone replacement therapy; Z79.899 Other long term (current) drug therapy; Z88.1 Allergy status to other antibiotic agents; Z88.0 Allergy status to penicillin; Z88.2 Allergy status to sulfonamides; Z88.8 Allergy status to other drugs, medicaments and biological substances; Z90.89 Acquired absence of other organs; Z83.3 Family history of diabetes mellitus; Z82.49 Family history of ischemic heart disease and other diseases of the circulatory system; Z83.438 Family history of other disorder of lipoprotein metabolism and other lipidemia
CPT/HCPCS: 81025; 88305; 58558; 58579; J2250; J1100; J2405; J3010; J2704; J1170; J2001

== ENCOUNTER 2021-11-29 13:19 | Emergency (ER) | payer OTHER ==
[2021-11-29 13:24] VITALS: RESP 18
[2021-11-29] MEDS ORDERED: ONDANSETRON 4 MG/2 ML VIAL IVP STA (13:50)
[2021-11-29] MEDS ORDERED: SODIUM CHLORIDE 0.9% 1,000 ML IV STA (13:50)
[2021-11-29] MEDS ORDERED: KETOROLAC 15 MG/ML 1 ML VIAL IVP STA (13:51)
--- NOTE | 2021-11-29 14:05 | ED ---
Female Urogenital HPI - General Chief complaint: Vaginal Bleeding Stated complaint: post IUD removal issues Time Seen by Provider: 11/29/21 13:25 Source: patient, RN notes reviewed Mode of arrival: ambulatory - History of Present Illness Initial comments: This is a 26 year old female who presents to the emergency department for vaginal bleeding, pelvic pain, and lightheadedness. She had her IUD removed on 11/[address] Pool because it was retained. She began having the bleeding 2 days after the procedure. She is going through multiple sanitary pads an hour and reports associated weakness and lightheadedness. She also has pelvic pain/cramping that is radiating to the back bilaterally. She reports associated nausea but no vomiting. She has been taking Tylenol for the pain, however this is not effective. Denies any fevers, chills, sore throat, cough, dyspnea, chest pain, palpitations, vomiting, diarrhea, back pain, or headaches. MD Complaint: vaginal bleeding, pelvic pain Onset/Timin -: days(s) - Related Data Home Medications Medication Instructions Recorded Confirmed Levothyroxine Sodium [Synthroid] 300 mcg PO DAILY 02/29/20 11/19/21 acetaZOLAMIDE [Diamox] 250 mg PO DAILY 01/29/21 11/19/21 Amitriptyline HCl [Elavil] 10 mg PO DAILY 10/30/21 11/19/21 FLUoxetine HCL [PROzac] 20 mg PO DAILY 10/30/21 11/19/21 Topiramate [Topamax] 50 mg PO HS 10/30/21 11/19/21 Previous Rx's Medication Instructions Recorded HYDROcodone/APAP 5-325MG [[place] 1 tab PO Q6HR PRN 3 Days #12 tab 11/29/21 5-325] Ondansetron Odt [Zofran Odt] 4 mg PO Q8HR PRN #15 tab 11/29/21 Allergies Allergy/AdvReac Type Severity Reaction Status Date / Time clarithromycin [From Biaxin] Allergy Dyspnea Verified 11/29/21 13:24 Penicillins Allergy Unknown Verified 11/29/21 13:24 Childhood Sulfa (Sulfonamide Allergy Dyspnea Verified 11/29/21 13:24 Antibiotics) tizanidine Allergy Anaphylaxis Verified 11/29/21 13:24 Review of Systems ROS Statement: Those systems with pertinent positive or pertinent negative responses have been documented in the HPI. ROS Other: All systems not noted in ROS Statement are negative. 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) History of Any Multi-Drug Resistant Organisms: ESBL Date of last positivie culture/infection: 02/29/2020 MDRO Source:: urine Past Surgical History: Adenoidectomy, Tonsillectomy Additional Past Surgical History / Comment(s): colonscopy, biopsy of liver 2020, EGD 2018, laparoscopy Past Anesthesia/Blood Transfusion Reactions: No Reported Reaction Additional Past Anesthesia/Blood Transfusion Reaction / Comment(s): N/A Past Psychological History: Anxiety, Depression Smoking Status: Never smoker - Past Family History Mother Family Medical History: Diabetes Mellitus, Hyperlipidemia, Hypertension, Liver Disease Father Family Medical History: Hypertension General Exam General appearance: alert, in distress Head exam: Present: atraumatic, normocephalic, normal inspection Respiratory exam: Present: normal lung sounds bilaterally. Absent: respiratory distress, wheezes, rales, rhonchi, stridor Cardiovascular Exam: Present: regular rate, normal rhythm, normal heart sounds. Absent: systolic murmur, diastolic murmur, rubs, gallop, clicks GI/Abdominal exam: Present: soft, tenderness (Bilateral suprapubic), normal bowel sounds. Absent: distended, guarding, rebound, rigid Back exam: Present: normal inspection, full ROM. Absent: tenderness Neurological exam: Present: alert, oriented X3, CN II-XII intact Psychiatric exam: Present: normal affect, normal mood Skin exam: Present: warm, dry, intact, normal color. Absent: rash Course Vital Signs 11/29/21 11/29/21 11/29/21 13:20 14:58 16:40 Temperature 97.9 F 98.2 F Pulse Rate 64 57 L 62 Respiratory 18 18 18 Rate Blood Pressure 94/69 116/59 100/45 O2 Sat by Pulse 100 99 99 Oximetry Medical Decision Making - Medical Decision Making This is a 26-year-old female who presents to the emergency department for vaginal bleeding and pelvic pain following IUD removal. Lab work and urinalysis were nonactionable. Pelvic ultrasound revealed a small amount of fluid in the cervix, which may be related to blood or inflammation. No acute pelvic process was identified. There was a nonspecific cyst along the endometrium which was said to be likely present during her computed tomography scan in 2019. Prescriptions for Zofran provided. She is advised to use this sparingly when the pain is most severe and to otherwise take Tylenol. Given that the patient is unable to take anti-inflammatories due to stomach ulcers, I am willing to proceed fight a short course of [place] due to the level of her pain. She is instructed to follow-up with her [facility] [employer] next week. Return precautions reviewed in depth, the patient is instructed to return to the emergency department with any new, worsening, or concerning symptoms. Patient verbalized understanding. This case was discussed in detail with the attending ED physician. Presentation, findings, and treatment plan discussed in detail as well. - Lab Data Result diagrams: 11/29/21 14:28 11/29/21 14:28 Lab Results 11/29/21 11/29/21 11/29/21 Range/Units 14:28 14:28 14:28 WBC 7.2 (3.8-10.6) k/uL RBC 4.08 (3.80-5.40) m/uL Hgb 12.8 (11.4-16.0) gm/dL Hct 39.4 (34.0-46.0) % MCV 96.5 (80.0-100.0) fL MCH 31.3 (25.0-35.0) pg MCHC 32.5 (31.0-37.0) g/dL RDW 13.6 (11.5-15.5) % Plt Count 223 (150-450) k/uL MPV 9.5 Neutrophils % 60 % Lymphocytes % 32 % Monocytes % 4 % Eosinophils % 2 % Basophils % 1 % Neutrophils # 4.4 (1.3-7.7) k/uL Lymphocytes # 2.3 (1.0-4.8) k/uL Monocytes # 0.3 (0-1.0) k/uL Eosinophils # 0.1 (0-0.7) k/uL Basophils # 0.0 (0-0.2) k/uL PT (9.0-12.0) sec INR (<1.2) Sodium 140 (137-145) mmol/L Potassium 4.4 (3.5-5.1) mmol/L Chloride 106 (98-107) mmol/L Carbon Dioxide 25 (22-30) mmol/L Anion Gap 9 mmol/L BUN 17 (7-17) mg/dL Creatinine 0.93 (0.52-1.04) mg/dL Est GFR (CKD-EPI)AfAm >90 (>60 ml/min/1.73 sqM) Est GFR (CKD-EPI)NonAf 86 (>60 ml/min/1.73 sqM) Glucose 98 (74-99) mg/dL Calcium 9.3 (8.4-10.2) mg/dL Total Bilirubin 0.5 (0.2-1.3) mg/dL AST 19 (14-36) U/L ALT 17 (4-34) U/L Alkaline Phosphatase 51 (38-126) U/L Total Protein 7.3 (6.3-8.2) g/dL Albumin 4.7 (3.5-5.0) g/dL HCG, Qual Not Detected Urine Color Yellow Urine Appearance Clear (Clear) Urine pH 5.5 (5.0-8.0) Ur Specific Watkins 1.030 (1.001-1.035) Urine Protein Trace H (Negative) Urine Glucose (UA) Negative (Negative) Urine Ketones Negative (Negative) Urine Blood Large H (Negative) Urine Nitrite Negative (Negative) Urine Bilirubin Negative (Negative) Urine Urobilinogen <2.0 (<2.0) mg/dL Ur Leukocyte Esterase Negative (Negative) Urine RBC 34 H (0-5) /hpf Urine WBC 3 (0-5) /hpf Ur Squamous Epith Cells 1 (0-4) /hpf Urine Bacteria Rare H (None) /hpf Urine Mucus Rare H (None) /hpf 11/29/21 Range/Units 14:28 WBC (3.8-10.6) k/uL RBC (3.80-5.40) m/uL Hgb (11.4-16.0) gm/dL Hct (34.0-46.0) % MCV (80.0-100.0) fL MCH (25.0-35.0) pg MCHC (31.0-37.0) g/dL RDW (11.5-15.5) % Plt Count (150-450) k/uL MPV Neutrophils % % Lymphocytes % % Monocytes % % Eosinophils % % Basophils % % Neutrophils # (1.3-7.7) k/uL Lymphocytes # (1.0-4.8) k/uL Monocytes # (0-1.0) k/uL Eosinophils # (0-0.7) k/uL Basophils # (0-0.2) k/uL PT 11.0 (9.0-12.0) sec INR 1.0 (<1.2) Sodium (137-145) mmol/L Potassium (3.5-5.1) mmol/L Chloride (98-107) mmol/L Carbon Dioxide (22-30) mmol/L Anion Gap mmol/L BUN (7-17) mg/dL Creatinine (0.52-1.04) mg/dL Est GFR (CKD-EPI)AfAm (>60 ml/min/1.73 sqM) Est GFR (CKD-EPI)NonAf (>60 ml/min/1.73 sqM) Glucose (74-99) mg/dL Calcium (8.4-10.2) mg/dL Total Bilirubin (0.2-1.3) mg/dL AST (14-36) U/L ALT (4-34) U/L Alkaline Phosphatase (38-126) U/L Total Protein (6.3-8.2) g/dL Albumin (3.5-5.0) g/dL HCG, Qual Urine Color Urine Appearance (Clear) Urine pH (5.0-8.0) Ur Specific Watkins (1.001-1.035) Urine Protein (Negative) Urine Glucose (UA) (Negative) Urine Ketones (Negative) Urine Blood (Negative) Urine Nitrite (Negative) Urine Bilirubin (Negative) Urine Urobilinogen (<2.0) mg/dL Ur Leukocyte Esterase (Negative) Urine RBC (0-5) /hpf Urine WBC (0-5) /hpf Ur Squamous Epith Cells (0-4) /hpf Urine Bacteria (None) /hpf Urine Mucus (None) /hpf - Radiology Data Radiology results: report reviewed, image reviewed Disposition Clinical Impression: Dysfunctional uterine bleeding Disposition: HOME SELF-CARE Instructions (If sedation given, give patient instructions): Abnormal (Dysf unctional) Uterine Bleeding (ED) Additional Instructions: Return to the emergency department with any new, worsening, or concerning symptoms. Take the [place] sparingly when the pain is most severe, otherwise take Tylenol. Follow-up with your [facility] next week. Prescriptions: HYDROcodone/APAP 5-325MG [[place] 5-325] 1 tab PO Q6HR PRN 3 Days #12 tab PRN Reason: Pain Is patient prescribed a controlled substance at d/c from ED?: Yes If prescribed controlled substance>3 days was MAPS reviewed?: Prescribed <3 Days Referrals: Mary Restrepo MD [Primary Care Provider] - 1-2 days
[2021-11-29 14:56] LABS: Basophils % (A) 1 %; Eosinophils # (A) 0.1 k/uL (0-0.7); Eosinophils % (A) 2 %; HCT 39.4 % (34.0-46.0); HGB 12.8 gm/dL (11.4-16.0); Lymphocytes # (A) 2.3 k/uL (1.0-4.8); Lymphocytes % (A) 32 %; MCH 31.3 pg (25.0-35.0); MCHC 32.5 g/dL (31.0-37.0); MCV 96.5 fL (80.0-100.0); Mean Platelet Volume 9.5; Monocytes # (A) 0.3 k/uL (0-1.0); Monocytes % (A) 4 %; Neutrophils # (A) 4.4 k/uL (1.3-7.7); Neutrophils % (A) 60 %; Platelet Count 223 k/uL (150-450); RBC 4.08 m/uL (3.80-5.40); RDW 13.6 % (11.5-15.5); WBC 7.2 k/uL (3.8-10.6)
[2021-11-29 15:08] LABS: ALT 17 U/L (4-34); AST 19 U/L (14-36); African American GFR (CKD) >90 (>60 ml/min/1.73 sqM); Albumin 4.7 g/dL (3.5-5.0); Alkaline Phosphatase 51 U/L (38-126); Anion Gap 9 mmol/L; Blood Urea Nitrogen 17 mg/dL (7-17); Calcium 9.3 mg/dL (8.4-10.2); Carbon Dioxide 25 mmol/L (22-30); Chloride 106 mmol/L (98-107); Glucose 98 mg/dL (74-99); Non-African American GFR(CKD) 86 (>60 ml/min/1.73 sqM); Potassium 4.4 mmol/L (3.5-5.1); Sodium 140 mmol/L (137-145); Total Bilirubin 0.5 mg/dL (0.2-1.3); Total Protein 7.3 g/dL (6.3-8.2)
[2021-11-29 15:11] LABS: Appearance,Urine Clear (Clear); Bacteria,Urine Rare /hpf; Bilirubin,Urine Negative (Negative); Blood,Urine Large (Negative); Color,Urine Yellow; Glucose,Urine (UA) Negative (Negative); Ketones,Urine Negative (Negative); Leukocyte Esterase,Urine Negative (Negative); Mucus,Urine Rare /hpf; Nitrite,Urine Negative (Negative); PH, Urine 5.5 (5.0-8.0); Protein,Urine Trace (Negative); RBC,Urine 34 /hpf (0-5); Squamous Epithelial Cell,Urine 1 /hpf (0-4); Urobilinogen,Urine <2.0 mg/dL (<2.0); WBC,Urine 3 /hpf (0-5)
[2021-11-29 15:12] LABS: HCG,Qualitative Serum Not Detected
--- NOTE | 2021-11-29 15:32 | US ---
EXAMINATION TYPE: US transvaginal DATE OF EXAM: 11/29/2021 COMPARISON: CT 02/29/2020. CLINICAL HISTORY: Pain and bleeding after IUD removal. IUD removed 10/24/21. . TECHNIQUE: . Transvaginal sonographic images of the pelvis were acquired. Date of LMP: unknown EXAM MEASUREMENTS: Uterus: 6.9 x 4.5 x 3.5 cm Endometrial Stripe: 0.7 cm Right Ovary: 3.9 x 3.9 x 2.6 cm Left Ovary: 3.1 x 2.5 x 2.6 cm 1. Uterus: Anteverted Cyst in BECKI measuring 0.7 x 0.7 x 0.6cm, small fluid in cervix 2. Endometrium: wnl 3. Right Ovary: wnl 4. Left Ovary: wnl Spectral, color and waveform doppler imaging shows good arterial and venous flow within the ovaries ; there is no evidence for ovarian torsion. 5. Bilateral Adnexa: wnl 6. Posterior cul-de-sac: wnl No evidence for intrauterine device. IMPRESSION: 1. No evidence for acute pelvic process with a small amount of fluid within the cervix. Nonspecific cyst along/near the endometrium which may have been present on prior CT in 2019.
[2021-11-29] MEDS ORDERED: HYDROcodone/APAP 5-325MG 1 EACH TAB PO STA (15:54)
[2021-11-29 16:45] VITALS: BP 100/45; PULSE 62; TEMP 98.2
== END 2021-11-29 16:48 | disposition home or self-care (01) ==
LOC: EC 13:19
DX: N93.8 Other specified abnormal uterine and vaginal bleeding (principal); R10.2 Pelvic and perineal pain; J45.909 Unspecified asthma, uncomplicated; E07.9 Disorder of thyroid, unspecified; Z88.0 Allergy status to penicillin; Z88.2 Allergy status to sulfonamides; Z88.8 Allergy status to other drugs, medicaments and biological substances; Z88.1 Allergy status to other antibiotic agents; Z79.890 Hormone replacement therapy
CPT/HCPCS: 36415; 80053; 85025; 85610; 81001; 84703; 93975; 76830; 99284; 96374; 96375; 96361; J2405; J1885